=== PATIENT | female | born 1945 | race Caucasian/White ===

== ENCOUNTER 2017-02-08 02:24 | Outpatient (CLI) | payer MEDICARE, OTHER | END 2017-02-08 02:25 | disposition home or self-care (01) | LOC: EMS 02:24 | PROVIDERS: ATTEND Surgery | DX: T83.028A Displacement of other urinary catheter, initial encounter (principal) | CPT/HCPCS: A0425; A0429 ==

== ENCOUNTER 2017-02-08 02:50 | Emergency (ER) | payer MEDICARE, OTHER ==
[2017-02-08 03:38] LABS: BILIRUBIN,URINE NEGATIVE (NEGATIVE)
[2017-02-08 03:40] LABS: UA w/ MICROSCOPIC CHARGE YES
[2017-02-08 03:43] LABS: UR CULTURE IF IND INDICATED; WBC,URINE >25 /HPF (0-5)
[2017-02-08] MEDS ORDERED: levoFLOXacin 250 MG TABLET PO STA (03:47)
--- NOTE | 2017-02-08 03:47 | ED Physician Documentation ---
PD HPI FEMALE - Stated complaint Stated Complaint: SPC CAME OUT - Chief complaint Chief Complaint: General - History obtained from History obtained from: Patient, EMS - History of Present Illness Timing - onset: Today Timing - details: Abrupt onset Similar symptoms before: Work up / diagnostics, Treatment Recently seen: Not recently seen - Additional information Additional information: Patient is a 71 year old female with an suprapubic catheter. Patient states that it came out tonight but she is not sure how it happened. Patient states that she tried putting it back in, even using a wire inside the catheter but was unsuccessful so she came for evaluation. Review of Systems Constitutional: denies: Fever, Chills Eyes: denies: Loss of vision Ears: denies: Ear pain, Drainage/discharge Nose: denies: Rhinorrhea / runny nose, Congestion Throat: denies: Dental pain / toothache, Oral lesions / sores Cardiac: denies: Chest pain / pressure Respiratory: denies: Dyspnea, Cough GI: denies: Nausea, Vomiting : reports: Unable to Void Skin: denies: Rash, Lesions Musculoskeletal: denies: Neck pain, Back pain, Extremity pain Neurologic: denies: Generalized weakness, Focal weakness Immunocompromised: denies: Immunocompromised PD PAST MEDICAL HISTORY - Past Medical History Cardiovascular: None Respiratory: None Neuro: Multiple sclerosis Endocrine/Autoimmune: None GI: None BOAT RIGGER: Other : Indwelling catheter HEENT: None Psych: Depression Musculoskeletal: Other Derm: None - Past Surgical History Past Surgical History: Yes Ortho: Hip replacement /BOAT RIGGER: Hysterectomy - Present Medications Home Medications: Ambulatory Orders Medication Instructions Recorded Confirmed Venlafaxine [Effexor] 75 mg PO BID 12/21/12 01/09/14 Dimethyl Fumarate [Tecfidera] 240 mg PO BID 01/09/14 01/09/14 Multivit with Calcium,Iron,Min 1 tab.chew PO TID 01/09/14 01/09/14 [Women's Daily Multivitamin] Brick-3 Fatty Acids/Fish Oil 1 cap PO TID 01/09/14 01/09/14 [Brick 3 1,000 mg Softgel] Vit D3-Vit K/Berberine/Hops 5,000 each PO DAILY 01/09/14 01/09/14 [Ostera Tablet] Levofloxacin [Levaquin] 750 mg PO DAILY #5 tablet 06/07/16 Levofloxacin [Levaquin] 750 mg PO DAILY #5 tablet 02/08/17 - Allergies Allergies/Adverse Reactions: Allergies Allergy/AdvReac Type Severity Reaction Status Date / Time No Known Drug Allergies Allergy Verified 12/24/12 11:09 - Social History Does the pt smoke?: Yes Smoking Status: Current every day smoker Does the pt drink ETOH?: No Does the pt have substance abuse?: No - Immunizations Immunizations are current?: No Immunizations: TDAP >10years/unknown - POLST Patient has POLST: No PD ED PE NORMAL - Vitals Vital signs reviewed: Yes - General General: Alert and oriented X 3 - HEENT HEENT: Atraumatic, PERRL - Neck Neck: Supple, no meningeal sign - Respiratory Respiratory: No respiratory distress - Abdomen Abdomen: Soft, Non distended - Derm Derm: Normal color, Warm and dry - Extremities Extremities: No deformity - Neuro Neuro: Alert and oriented X 3, Normal speech - Psych Psych: Normal mood PD ED PE EXPANDED - HEENT HEENT: Dry mucous membranes - Abdomen Abdomen: Other (suprapubic catheter site, no surrounding erythema, dislodged catheter) - Female Female : Normal external, Vaginal Discharge Results - Vitals Vitals: Vital Signs - 24 hr 02/08/17 02/08/17 03:00 03:50 Temperature 36.8 C Heart Rate 101 H 98 Respiratory 17 16 Rate Blood Pressure 113/92 H 127/59 L O2 Saturation 96 96 Oxygen O2 Source Room air - Labs Labs: Laboratory Tests 02/08/17 03:25 Urine Color YELLOW Urine Clarity CLOUDY Urine pH 7.0 Ur Specific [place]anna 1.015 Urine Protein 100 H Urine Glucose (UA) NEGATIVE Urine Ketones NEGATIVE Urine Occult Blood LARGE H Urine Nitrite NEGATIVE Urine Bilirubin NEGATIVE Urine Urobilinogen 0.2 (NORMAL) Ur Leukocyte Esterase LARGE H Urine RBC 6-10 H Urine WBC >25 H Ur Squamous Epith Cells NONE SEEN Urine Bacteria Moderate H Ur Microscopic Review INDICATED Urine Culture Comments INDICATED PD MEDICAL DECISION MAKING - ED course Complexity details: reviewed old records, reviewed results, re-evaluated patient , considered differential, d/w patient ED course: Patient was seen and examined at bedside. 22 gauge jennings was placed. urine was collected and sent and was laden with bacteria. Catheter was flushed and patient was treated with levaquin. Patient required no further work up and was stable for discharge with outpatient follow up. Departure - Departure Disposition: 01 Home, Self Care Clinical Impression: Urinary tract infection Condition: Good Instructions: ED UTI Cystitis Female Follow-Up: Fady Mcintosh DO [Primary Care Provider] - As Needed Prescriptions: Levofloxacin [Levaquin] 750 mg PO DAILY #5 tablet Comments: your catheter has been replaced but there are signs of a urinary tract infection. You will take your first dose of antibiotics tonight and will need to take them for the next 5 days. You should stay well hydrated with water. You may return to the emergency department at any time if needed for new, worsening or uncontrollable symptoms. Discharge Date/Time: 02/08/17 04:15
[2017-02-08 03:51] VITALS: BP 127/59
[2017-02-08] MEDS ORDERED: levoFLOXacin 250 MG TABLET ONE (03:57)
== END 2017-02-08 04:15 | disposition home or self-care (01) ==
LOC: EDUNIT# → ED 02:50 → SUPCPDRO 02:50 → ED 04:15
DX: N39.0 Urinary tract infection, site not specified (principal); T83.89XA Other specified complication of genitourinary prosthetic devices, implants and grafts, initial encounter; G35 Multiple sclerosis; F17.200 Nicotine dependence, unspecified, uncomplicated; N89.8 Other specified noninflammatory disorders of vagina
CPT/HCPCS: 51702; 81001; 87086; 99283; A9270; 81003

== ENCOUNTER 2017-02-08 04:19 | Outpatient (CLI) | payer MEDICARE, OTHER | END 2017-02-08 04:20 | disposition home or self-care (01) | LOC: EMS 04:19 | PROVIDERS: ATTEND Surgery | DX: T83.028A Displacement of other urinary catheter, initial encounter (principal) | CPT/HCPCS: A0425; A0428 ==

== ENCOUNTER 2017-04-13 14:00 | Outpatient (CLI) | payer MEDICARE, OTHER | END 2017-04-13 14:01 | disposition critical access hospital (66) | LOC: EMS 14:00 | PROVIDERS: ATTEND Surgery | DX: R11.2 Nausea with vomiting, unspecified (principal); R82.90 Unspecified abnormal findings in urine | CPT/HCPCS: A0425; A0429 ==

== ENCOUNTER 2017-04-16 12:14 | Outpatient (CLI) | payer MEDICARE, OTHER | END 2017-04-16 12:15 | disposition short-term general hospital (02) | LOC: EMS 12:14 | PROVIDERS: ATTEND Surgery | DX: R09.89 Other specified symptoms and signs involving the circulatory and respiratory systems (principal); K56.609 Unspecified intestinal obstruction, unspecified as to partial versus complete obstruction | CPT/HCPCS: A0170; A0425; A0426 ==

== ENCOUNTER 2017-12-17 | Outpatient (CLI) | END 2017-12-17 12:32 | disposition EMS.NT ==

== ENCOUNTER 2018-03-28 13:00 | Outpatient (CLI) | payer MEDICARE, OTHER ==
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
== END 2018-03-28 13:01 | disposition home or self-care (01) ==
LOC: PC 13:00
PROVIDERS: ATTEND Nurse Practitioner
DX: Z51.5 Encounter for palliative care (principal); G35 Multiple sclerosis; L89.151 Pressure ulcer of sacral region, stage 1; R15.9 Full incontinence of feces; B37.2 Candidiasis of skin and nail; N30.20 Other chronic cystitis without hematuria; M16.12 Unilateral primary osteoarthritis, left hip; M17.0 Bilateral primary osteoarthritis of knee; S40.211A Abrasion of right shoulder, initial encounter; X58.XXXA Exposure to other specified factors, initial encounter; F32.9 Major depressive disorder, single episode, unspecified; Z72.0 Tobacco use; Z96.0 Presence of urogenital implants; Z74.01 Bed confinement status; Z96.641 Presence of right artificial hip joint; Z79.899 Other long term (current) drug therapy
CPT/HCPCS: 99345

== ENCOUNTER 2018-03-30 11:03 | Outpatient (CLI) | payer MEDICARE, OTHER | END 2018-03-30 11:04 | disposition critical access hospital (66) | LOC: EMS 11:03 | PROVIDERS: ATTEND Surgery | DX: R06.00 Dyspnea, unspecified (principal) | CPT/HCPCS: A0425; A0427 ==

== ENCOUNTER 2018-03-30 11:36 | Inpatient (IN) | payer MEDICARE, OTHER ==
--- NOTE | 2018-03-30 12:15 | ED Physician Documentation ---
PD HPI DYSPNEA - Stated complaint Stated Complaint: DIFFICULTY BREATHING - Chief complaint Chief Complaint: Resp - History obtained from History obtained from: Patient - History of Present Illness Timing - onset: Yesterday Timing - onset during: Rest Timing - duration: Days (1-2) Timing - details: Abrupt onset, Still present, Waxing and waning Inciting event(s): URI (mild cough), Immobilization/travel (MS and is bedridden chronic). No: Out of meds Worsened by: No: Exertion (does not get out of bed due to MS/paralysis.), Laying flat Associated symptoms: Cough, Wheezing. No: Fever, Chest pain / discomfort, Palpitations, Bilateral edema Similar symptoms before: Has not had sx before Recently seen: Clinic (for UTI about 2 weeks ago.) Review of Systems Constitutional: denies: Fever, Chills, Myalgias Nose: denies: Rhinorrhea / runny nose, Congestion Throat: denies: Sore throat Cardiac: denies: Chest pain / pressure Respiratory: reports: Dyspnea, Cough GI: denies: Abdominal Pain, Nausea, Vomiting, Diarrhea : reports: Other (suprapubic cath draining well, without blood.) Skin: denies: Rash, Lesions Neurologic: reports: Confused (chronic). denies: Altered mental status, Headache, Head injury PD PAST MEDICAL HISTORY - Past Medical History Cardiovascular: None, Peripheral Vascular Disease Respiratory: None Neuro: Dementia, Multiple sclerosis (with leg weakness and so bedbound. Has group home supervisor just few hours daily, then family members. ) Endocrine/Autoimmune: None GI: None, Other FITNESS MANAGER: Other : Indwelling catheter HEENT: None Psych: Depression Musculoskeletal: Osteoarthritis Derm: Other - Past Surgical History Past Surgical History: Yes Ortho: Hip replacement /FITNESS MANAGER: Hysterectomy - Present Medications Home Medications: Ambulatory Orders Medication Instructions Recorded Confirmed Hydrocodone/Acetaminophen 1 tab PO Q4H PRN 04/14/17 03/30/18 [Hydrocodon-Acetaminophen 5-325] Albuterol Sulfate [Proair Hfa 2 puffs PO QID PRN 03/28/18 03/30/18 Inhaler] Venlafaxine [Effexor] 75 mg PO DAILY 03/30/18 03/30/18 - Allergies Allergies/Adverse Reactions: Allergies Allergy/AdvReac Type Severity Reaction Status Date / Time No Known Drug Allergies Allergy Verified 03/30/18 11:44 - Social History Does the pt smoke?: Yes Smoking Status: Current every day smoker Does the pt drink ETOH?: No Does the pt have substance abuse?: No - Family History Family history: reports: Non contributory - Immunizations Immunizations are current?: No Immunizations: TDAP >10years/unknown - POLST Patient has POLST: Yes POLST Status: Full Code PD ED PE NORMAL - Vitals Vital signs reviewed: Yes - General General: Alert and oriented X 3, No acute distress, Well developed/nourished - HEENT HEENT: Atraumatic, Moist mucous membranes, Pharynx benign - Neck Neck: Supple, no meningeal sign, No adenopathy - Cardiac Cardiac: RRR, No murmur - Respiratory Respiratory: No respiratory distress. No: Clear bilaterally (wheezing diffusely holoexpiratory. ) - Abdomen Abdomen: Soft, Non tender - Female Female : Deferred, Other (suprapubic cath noted with some cloudy yellow output. ) - Rectal Rectal: Deferred - Back Back: No CVA TTP - Derm Derm: Normal color - Extremities Extremities: No tenderness to palpate, No edema, No calf tenderness / cord - Neuro Neuro: Alert and oriented X 3, leadlighter 2-12 intact, No motor deficit, Normal speech Results - Vitals Vitals: Vital Signs - 24 hr 03/30/18 03/30/18 03/30/18 11:39 12:07 14:00 Temperature 36.6 C Heart Rate 125 H 124 H 110 H Respiratory 24 20 18 Rate Blood Pressure 156/80 H 150/68 H 123/57 L O2 Saturation 98 96 96 03/30/18 03/30/18 03/30/18 15:45 16:00 17:30 Temperature Heart Rate 90 96 113 H Respiratory 18 18 18 Rate Blood Pressure 120/58 L 123/57 L O2 Saturation 96 95 Oxygen O2 Source Room air - Labs Labs: Laboratory Tests 03/30/18 03/30/18 03/30/18 12:42 12:42 12:42 WBC 28.6 H RBC 4.22 Hgb 13.6 Hct 40.9 MCV 96.9 MCH 32.1 H MCHC 33.2 RDW 13.5 Plt Count 456 H MPV 7.6 L Neut # (Auto) 26.9 H Lymph # (Auto) 0.8 L [place] # (Auto) 0.6 Eos # (Auto) 0.3 Baso # (Auto) 0.0 Absolute Nucleated RBC 0.00 Nucleated RBC % 0.0 Manual Slide Review Indicated WBC Morphology NORMAL APPEARANCE Platelet Estimate INCREASED (>450,000) Platelet Morphology NORMAL APPEARANCE RBC Morph Micro Appear NORMAL APPEARANCE D-Dimer Sodium 136 Potassium 3.9 Chloride 96 L Carbon Dioxide 27 Anion Gap 13.0 BUN 20 Creatinine 0.6 Estimated GFR (MDRD) 98 Glucose 157 H Calcium 9.4 Magnesium 1.9 Total Bilirubin 0.8 AST 27 ALT 17 Alkaline Phosphatase 69 Troponin I < 0.04 B-Natriuretic Peptide Total Protein 7.8 Albumin 3.6 Globulin 4.2 Albumin/Globulin Ratio 0.9 L Lipase 32 Urine Color Urine Clarity Urine pH Ur Specific [place] Urine Protein Urine Glucose (UA) Urine Ketones Urine Occult Blood Urine Nitrite Urine Bilirubin Urine Urobilinogen Ur Leukocyte Esterase Urine RBC Urine WBC Ur Squamous Epith Cells Urine Crystals Amorphous Sediment Urine Bacteria Ur Microscopic Review Urine Culture Comments 03/30/18 03/30/18 03/30/18 12:42 12:42 13:12 WBC RBC Hgb Hct MCV MCH MCHC RDW Plt Count MPV Neut # (Auto) Lymph # (Auto) [place] # (Auto) Eos # (Auto) Baso # (Auto) Absolute Nucleated RBC Nucleated RBC % Manual Slide Review WBC Morphology Platelet Estimate Platelet Morphology RBC Morph Micro Appear D-Dimer 464.8 H Sodium Potassium Chloride Carbon Dioxide Anion Gap BUN Creatinine Estimated GFR (MDRD) Glucose Calcium Magnesium Total Bilirubin AST ALT Alkaline Phosphatase Troponin I B-Natriuretic Peptide 83 Total Protein Albumin Globulin Albumin/Globulin Ratio Lipase Urine Color DARK YELLOW Urine Clarity CLOUDY Urine pH 7.5 Ur Specific [place] 1.020 Urine Protein 100 H Urine Glucose (UA) NEGATIVE Urine Ketones 15 H Urine Occult Blood LARGE H Urine Nitrite POSITIVE H Urine Bilirubin NEGATIVE Urine Urobilinogen 0.2 (NORMAL) Ur Leukocyte Esterase LARGE H Urine RBC 11-25 H Urine WBC >25 H Ur Squamous Epith Cells FEW Squamous Urine Crystals 3-5 Triple Phosphate Amorphous Sediment Moderate Urine Bacteria Many H Ur Microscopic Review INDICATED Urine Culture Comments INDICATED - Rads (name of study) CXR Radiology: Prelim report reviewed, EMP read contemporaneously (no acute infiltrates) chest angio Radiology: Prelim report reviewed (no PE. No acute process. ) PD MEDICAL DECISION MAKING - ED course Complexity details: reviewed results, re-evaluated patient, considered differential (has wheezing and dyspnea. Likely COPD exac. Is bedbound so need to consider PE. No signs of CHF nor KS. ), d/w patient - Sepsis Event Vital Signs: Vital Signs - 24 hr 03/30/18 03/30/18 03/30/18 11:39 12:07 14:00 Temperature 36.6 C Heart Rate 125 H 124 H 110 H Respiratory 24 20 18 Rate Blood Pressure 156/80 H 150/68 H 123/57 L O2 Saturation 98 96 96 03/30/18 03/30/18 03/30/18 15:45 16:00 17:30 Temperature Heart Rate 90 96 113 H Respiratory 18 18 18 Rate Blood Pressure 120/58 L 123/57 L O2 Saturation 96 95 Oxygen O2 Source Room air Departure - Departure Disposition: 66 [facility] DC/Xfer Clinical Impression: Acute exacerbation of COPD with asthma, Hypoxia Dyspnea Qualifiers: Dyspnea type: shortness of breath Qualified Code(s): R06.02 - Shortness of breath UTI (urinary tract infection) Qualifiers: Urinary tract infection type: catheter-associated UTI Indwelling urinary catheter type: cystostomy catheter Encounter type: initial encounter Qualified Code(s): T83.510A - Infection and inflammatory reaction due to cystostomy catheter, initial encounter Leukocytosis Qualifiers: Leukocytosis type: unspecified Qualified Code(s): D72.829 - Elevated white blood cell count, unspecified Discharge Date/Time: 03/30/18 18:30
[2018-03-30 13:07] LABS: ALBUMIN 3.6 g/dL (3.2-5.5); ALBUMIN/GLOBULIN RATIO 0.9 (1.0-2.2); BILIRUBIN,TOTAL 0.8 mg/dL (0.2-1.0); CALCIUM 9.4 mg/dL (8.5-10.3); CREATININE 0.6 mg/dL (0.4-1.0); MAGNESIUM 1.9 mg/dL (1.7-2.8); TOTAL PROTEIN 7.8 g/dL (6.7-8.2)
[2018-03-30 13:09] LABS: EOSINOPHILS # (AUTO) 0.3 10^3/uL (0.0-0.7); HGB - HEMOGLOBIN 13.6 g/dL (12.0-16.0); LYMPHOCYTES # (AUTO) 0.8 10^3/uL (1.5-3.5); LYMPHOCYTES % (AUTO) 2.7 %; MEAN CORPUSCULAR HEMOGLOBIN 32.1 pg (27.0-31.0); MEAN CORPUSCULAR HGB CONC 33.2 g/dL (32.0-36.0); MEAN CORPUSCULAR VOLUME 96.9 fL (81.0-99.0); MEAN PLATELET VOLUME 7.6 fL (7.9-10.8); MONOCYTES # (AUTO) 0.6 10^3/uL (0.0-1.0); MONOCYTES % (AUTO) 2.3 %; NEUTROPHILS # (AUTO) 26.9 10^3/uL (1.5-6.6); PLT - PLATELET COUNT 456 10^3/uL (130-450); RED BLOOD COUNT 4.22 10^6/uL (4.20-5.40); RED CELL DISTRIBUTION WIDTH 13.5 % (12.0-15.0); WHITE BLOOD COUNT 28.6 x10^3/uL (4.8-10.8)
--- NOTE | 2018-03-30 13:35 | XRAY Report ---
Reason: soa Procedure Date: 03/30/2018 Accession Number: [id number] / [id number] Procedure: XR - Chest 1 View X-Ray CPT Code: 40117 FULL RESULT: EXAM: CHEST RADIOGRAPHY EXAM DATE: 03/30/2018 12:28 PM. CLINICAL HISTORY: Soa. COMPARISON: CHEST 2 VIEW PA/LAT 01/12/2014 9:38 AM. TECHNIQUE: 1 view. FINDINGS: Lungs/Pleura: No focal opacities evident. No pleural effusion. No pneumothorax. Mediastinum: Within exam limitations, the cardiomediastinal contour is normal. Other: None. IMPRESSION: Negative for active cardiopulmonary process. RADIA
[2018-03-30 14:00] LABS: PLATELET ESTIMATE, MANUAL INCREASED (>450,000) (NORMAL); PLATELET MORPHOLOGY NORMAL APPEARANCE (NORMAL); RBC MORPHOLOGY (MULTIPLE) NORMAL APPEARANCE (NORMAL)
[2018-03-30 14:05] LABS: BILIRUBIN,URINE NEGATIVE (NEGATIVE); GLUCOSE, URINE (UA) NEGATIVE (NEGATIVE); KETONES,URINE (UA) 15 mg/dL (NEGATIVE); LEUKOCYTE ESTERASE, URINE LARGE (NEGATIVE); NITRITE,URINE POSITIVE (NEGATIVE); OCCULT BLOOD,URINE LARGE (NEGATIVE); PH,URINE 7.5 PH (5.0-7.5); PROTEIN,URINE 100 mg/dL (NEGATIVE); UROBILINOGEN,URINE 0.2 (NORMAL) E.U./dL (NORMAL)
[2018-03-30 14:07] LABS: CLARITY,URINE CLOUDY (CLEAR)
[2018-03-30] MEDS ORDERED: HYDROcod/ACETAM 5/325 MG TABLET PO STA (14:07)
[2018-03-30 14:25] LABS: AMORPHOUS SEDIMENT,UR Moderate /LPF; BACTERIA,URINE Many /HPF (None Seen); SQUAMOUS EPITHELIAL CELL,UR FEW Squamous (<= Few)
[2018-03-30 14:26] LABS: CRYSTALS,URINE 3-5 Triple Phosphate /LPF
[2018-03-30] MEDS ORDERED: IOPAMIDOL-300 100 ML VIAL ONE (14:28)
[2018-03-30] MEDS ORDERED: IOPAMIDOL-300 100 ML VIAL IVP ONE (15:23)
[2018-03-30] MEDS ORDERED: cefTRIAXone 1 GM in SODIUM CHLORIDE 0.9% MINIBAG 100 ML IV STA (15:31)
--- NOTE | 2018-03-30 15:54 | CT Report ---
Reason: dyspnea onset yesterday; bedbound; elevated d-dime Procedure Date: 03/30/2018 Accession Number: [id number] / [id number] Procedure: CT - Chest Angio (PE) CPT Code: FULL RESULT: EXAM: CT ANGIOGRAM CHEST EXAM DATE: 03/30/2018 03:32 PM. CLINICAL HISTORY: Dyspnea onset yesterday; bedbound; elevated D-dime. COMPARISON: Chest angio 04/15/2017 3:48 PM. Abdomen, pelvis with contrast 04/15/2017 3:48 PM. TECHNIQUE: Routine helical imaging was performed through the chest in the pulmonary arterial phase. IV Contrast: 80 mL Isovue-300. Reconstructions: Coronal 3-D MIP reconstructions.Sagittal and coronal. In accordance with CT protocol optimization, one or more of the following dose reduction techniques were utilized for this exam: automated exposure control, adjustment of mA and/or KV based on patient size, or use of iterative reconstructive technique. FINDINGS: Mediastinum: No thoracic aneurysm or dissection. Moderate atherosclerotic calcification of the thoracic aorta. No mediastinal or hilar lymphadenopathy. Heart size is within normal limits. No evidence for pulmonary emboli. Lungs: Biapical scarring. Right middle lobe and lingular scarring. No pleural effusion or pneumothorax. Minimal consolidation seen posteriorly at the base on the left side most likely atelectasis. Bilateral breast implants. The left breast implant is collapsed, unchanged. Upper abdomen: Distended gallbladder. There appears to be a minimal amount of ascites adjacent to the spleen, new from the abdomen and pelvis CT from 04/15/17. Bones: No acute bone findings. IMPRESSION: 1. No evidence for pulmonary emboli. 2. No acute pulmonary findings are seen. 3.Distended gallbladder. There appears to be a minimal amount of ascites adjacent to the spleen, new. RADIA
[2018-03-30] MEDS ORDERED: IPRATROPIUM/ALBUTEROL 3 ML NEB INH STA (16:00)
[2018-03-30] MEDS ORDERED: DEXAMETHASONE 10 MG/ML VIAL IVP STA (16:00)
[2018-03-30] MEDS ORDERED: ACETAMINOPHEN 325 MG TABLET PO PRN (17:45)
[2018-03-30] MEDS ORDERED: PROCHLORPERAZINE 10 MG/2 ML VIAL IVP PRN (17:45)
[2018-03-30] MEDS ORDERED: PROMETHAZINE 25 MG/1 ML VIAL IM PRN (17:45)
[2018-03-30] MEDS ORDERED: SODIUM CHLORIDE FLUSH 0.9% 10 ML SYRINGE IVP PRN (17:45)
[2018-03-30] MEDS ORDERED: ONDANSETRON 4 MG/2 ML VIAL IVP PRN (17:45)
[2018-03-30] MEDS ORDERED: HYDROcod/ACETAM 10 MG/325 MG TABLET PO PRN (17:45)
[2018-03-30] MEDS ORDERED: ZOLPIDEM 5 MG TABLET PO PRN (17:45)
--- NOTE | 2018-03-30 17:54 | HISTORY & PHYSICAL EXAMINATION ---
Chief Complaint - Chief Complaint Chief Complaint: Shortness of breath History of Present Illness - Admitted From Admitted From:: Emergency Department - History Obtained From Records Reviewed: Yes History obtained from: Patient and patients daughter Exam Limitations: None - History of Present Illness HPI Comment/Other: Patient is a 72-year-old female with a past medical history significant for multiple sclerosis diagnosed at the age of 44 with a neurogenic bladder status post suprapubic catheter 3 years ago and COPD who presented to the emergency department with a chief complaint of shortness of breath. The patient states that her shortness of breath started yesterday. She states that she just got an inhaler and because she was short of breath she used it for the first time and states that it made her symptoms worse. She states that through the night she was coughing and wheezing. She states that her shortness of breath just continued to worsen to the point where today she had to come into the hospital. The patient also states that she has chronic urinary tract infections due to her suprapubic catheter and was recently diagnosed with a UTI. She states that she has not been very compliant with her medication for treatment of her UTI. She states that she only took the antibiotics for a couple of days and then stopped. The patient otherwise denies any fevers or chills. She denies any weakness. S he denies any chest pain or palpitations. Patient denies any headaches, blurred vision, runny nose, sore throat, nasal congestion, difficulty swallowing, orthopnea, PND, increased lower extremity swe lling, abdominal pain, nausea, vomiting, diarrhea, constipation, increased urinary urgency, urinary frequency or dysuria. The patient also denies any back pain, neck stiffness, recent unintentional weight loss, changes in her appetite, hair loss, skin rash, night sweats or any focal neurologic deficits. On presentation to the emergency department the patient was afebrile, tachycardic with a heart rate of 125 hypertensive and tachypneic with respiratory rate of 24 with an O2 saturation of 88% on room air. Prior to coming to the emergency department the EMS found the patient at home with a O2 saturation in the mid 80s. The patient did have some improvement with nebulizer treatments and steroids in the emergency department however she continued to have wheezing and continued to have oxygen saturation in the low 90s. The patient underwent routine lab work which did reveal a leukocytosis of 28.6 along with a positive UA with large leukocyte esterase, positive nitrites, large blood and greater than 25 WBCs with many bacteria. The patient was admitted to the [facility] for sepsis with UTI and COPD exacerbation. History - Past Medical History Cardiovascular: reports: None Respiratory: reports: COPD Neuro: reports: Multiple sclerosis (With neurogenic bladder) Endocrine/Autoimmune: reports: None GI: reports: None, Other BASEBALL CLUB MANAGER: reports: Other : reports: Indwelling catheter HEENT: reports: None Psych: reports: Depression Musculoskeletal: reports: Osteoarthritis Derm: reports: Other MRSA Hx?: No - Past Surgical History Ortho: reports: Hip replacement /BASEBALL CLUB MANAGER: reports: Hysterectomy - Family & Social History Family History: Mother: (Father in World War II), Cancer (Mother of cervical cancer), Father: Living arrangement: At home Living Situation: With caregiver(s) Social History Notes: The patient lives in [place]. She states that she lives alone but has caregivers. She is bedbound and requires help with all her activities of daily living. She has a caregiver that helps to get her up and bathe her. She has another caregiver that provides her with food. The patient is originally from [place] and moved [place] [facility] [place] [facility] [place]. She moved to [place] and then lived in [place] and now has retired on [facility]. She is . She has 2 children both her daughters live in [place]. She was a housewife. She has been smoking 1 pack a day since the age of 15 states that she quit 2 days ago. She does not drink alcohol or use any illicit drugs. - Substance History Use: Uses substance without health or social issues: Tobacco (1 pack per day since age 15 or 16. Quit once for about 5 years, then restarted.) - POLST Patient has POLST: Yes POLST Status: Full Code Meds/Allgy - Home Medications Home Medications: Ambulatory Orders Medication Instructions Recorded Confirmed Hydrocodone/Acetaminophen 1 tab PO Q4H PRN 04/14/17 04/14/17 [Hydrocodon-Acetaminophen 5-325] Albuterol Sulfate [Proair Hfa 2 puffs PO QID PRN 03/28/18 03/28/18 Inhaler] Venlafaxine [Effexor] 75 mg PO DAILY 03/30/18 03/30/18 - Allergies Allergies/Adverse Reactions: Allergies Allergy/AdvReac Type Severity Reaction Status Date / Time No Known Drug Allergies Allergy Verified 03/30/18 11:44 Review of Systems - Other Findings Other Findings: A comprehensive review of systems was performed the pertinent positives and negatives are stated above in the HPI and the remainder of the review of systems is negative. Prior Level of Functionality: Bedbound with caregivers who help with activities of daily living. Patient does transfer into a wheelchair with the help of caregiver. Caregivers make patient food, bathe her and help her with all her daily needs. Exam - Vital Signs Reviewed Vital Signs: Yes Vital Signs: Vital Signs x48h Temp Pulse Resp BP Pulse Ox 03/30/18 16:00 96 18 03/30/18 14:00 110 H 18 123/57 L 96 03/30/18 12:07 124 H 20 150/68 H 96 03/30/18 11:39 36.6 C 125 H 24 156/80 H 98 - Physical Exam General Appearance: positive: No acute distress, Mild distress (Tachypneic, wheezing) Eyes Bilateral: positive: Normal inspection, PERRL, EOMI, No lid inflammation, Conjunctivae nml, No scleral icterus ENT: positive: ENT inspection nml, Pharynx nml, Dry mucous membranes. negative: Purulent nasal drainage, Pharyngeal erythema, Oral lesions Neck: positive: Nml inspection, Thyroid nml, No JVD, Trachea midline. negative: Thyromegaly, Lymphadenopathy (R), Lymphadenopathy (L), Stiff neck, Carotid bruit, Tracheal deviation Respiratory: positive: Chest non-tender, Wheezes (Scattered wheezing throughout her lungs expiratory). negative: Rales, Rhonchi Cardiovascular: positive: No murmur, No gallop, Tachycardia Peripheral Pulses: positive: 2+ Abdomen: positive: Non-tender, No organomegaly, Nml bowel sounds, No distention, Other (Indwelling suprapubic catheter). negative: Guarding, Rebound Back: positive: Nml inspection. negative: CVA tenderness (R), CVA tenderness (L) Skin: positive: Color nml, No rash, Warm, Dry. negative: Cyanosis, Diaphoresis, Pallor Extremities: positive: Non-tender, Full ROM, Nml appearance, Pedal edema (Left lower extremity) Neurologic/Psychiatric: positive: Oriented x3, CN's nml (2-12), Mood/affect nml, Weakness (Patient has contracture of her left lower extremity and weakness of bilateral lower extremity) Conclusion/Plan - Problem List (1) Sepsis Conclusion/Plan: Patient presents to the emergency department with tachycardia heart rate of 125, tachypneic with a respiratory rate of 24 and a leukocytosis of 28.6. Patient has recurrent urinary tract infections and was recently diagnosed with a UTI for which she did not appropriately take antibiotics. Patient's urine analysis shows a grossly positive UA for urinary tract infection. Patient has sepsis with likely source being the urine. Plan: Treat with IV ceftriaxone IV fluids Await urine cultures and blood cultures Check lactic acid (2) COPD exacerbation Conclusion/Plan: Patient presented to the emergency department with shortness of breath and wheezing. Patient underwent a chest x-ray which showed no acute changes. Patient also underwent a CT angiogram of her chest which revealed no pulmonary embolism. The patient continued to have wheezing and was borderline hypoxic despite receiving multiple doses of nebulizers and steroids in the emergency department. The patient appears to have a COPD exacerbation in the setting of sepsis from her urinary tract infection. Plan: Duo nebs [id number] times 1 day Duo nebs as needed Prednisone 40 mg daily Supplemental O2 (3) Urinary tract infection Conclusion/Plan: Patient presented with shortness of breath but was found to have sepsis which appears to be secondary to UTI. Patient has recurrent urinary tract infections. On past urine culture she is growing Klebsiella pneumonia and E. coli as well as Proteus mirabilis which have all been flynn susceptible. Plan: Treat with IV ceftriaxone Await urine and blood cultures IV fluids Qualifiers: Urinary tract infection type: catheter-associated UTI Indwelling urinary catheter type: cystostomy catheter Encounter type: initial encounter Qualified Code(s): T83.510A - Infection and inflammatory reaction due to c ystostomy catheter, initial encounter; N39.0 - Urinary tract infection, site not specified (4) Hyperglycemia Conclusion/Plan: Patient was hyperglycemic on presentation with a blood glucose of 157. Patient does not have a history of diabetes. Patient may be hypoglycemic in the setting of sepsis and infection. We will get a hemoglobin A1c as patient will be on steroids and may require sliding scale insulin if her A1c is elevated. (5) Depression Conclusion/Plan: Patient has a history of depression and uses Effexor at home. We will continue the patient's home dose of Effexor currently the patient does not appear to be depressed. Qualifiers: Depression Type: unspecified Qualified Code(s): F32.9 - Major depressive disorder, single episode, unspecified (6) Multiple sclerosis Conclusion/Plan: Patient has a history of multiple sclerosis which is left her bedbound and requiring help with all her ADLs. The patient has lower extremity weakness and a neurogenic bladder for which she has a indwelling suprapubic catheter and has had recurrent urinary tract infections. Currently the patient appears to be stable in terms of social setting. She will return back to her home once infection has resolved. - Lab Results Lab results reviewed: Yes Fish Bones: 03/30/18 12:42 03/30/18 12:42 Other Lab Results: Laboratory Results WBC 28.6 x10^3/uL (4.8-10.8) H 03/30/18 12:42 RBC 4.22 10^6/uL (4.20-5.40) 03/30/18 12:42 Hgb 13.6 g/dL (12.0-16.0) 03/30/18 12:42 Hct 40.9 % (37.0-47.0) 03/30/18 12:42 MCV 96.9 fL (81.0-99.0) 03/30/18 12:42 MCH 32.1 pg (27.0-31.0) H 03/30/18 12:42 MCHC 33.2 g/dL (32.0-36.0) 03/30/18 12:42 RDW 13.5 % (12.0-15.0) 03/30/18 12:42 Plt Count 456 10^3/uL (130-450) H 03/30/18 12:42 MPV 7.6 fL (7.9-10.8) L 03/30/18 12:42 Neut # (Auto) 26.9 10^3/uL (1.5-6.6) H 03/30/18 12:42 Lymph # (Auto) 0.8 10^3/uL (1.5-3.5) L 03/30/18 12:42 [place] # (Auto) 0.6 10^3/uL (0.0-1.0) 03/30/18 12:42 Eos # (Auto) 0.3 10^3/uL (0.0-0.7) 03/30/18 12:42 Baso # (Auto) 0.0 10^3/uL (0.0-0.1) 03/30/18 12:42 Absolute Nucleated RBC 0.00 x10^3/uL 03/30/18 12:42 Nucleated RBC % 0.0 /100WBC 03/30/18 12:42 Manual Slide Review Indicated 03/30/18 12:42 WBC Morphology NORMAL APPEARANCE (NORMAL) 03/30/18 12:42 Platelet Estimate INCREASED (>450,000) (NORMAL) 03/30/18 12:42 Platelet Morphology NORMAL APPEARANCE (NORMAL) 03/30/18 12:42 RBC Morph Micro Appear NORMAL APPEARANCE (NORMAL) 03/30/18 12:42 D-Dimer 464.8 ng/mL (200.0-255.0) H 03/30/18 12:42 Sodium 136 mmol/L (135-145) 03/30/18 12:42 Potassium 3.9 mmol/L (3.5-5.0) 03/30/18 12:42 Chloride 96 mmol/L (101-111) L 03/30/18 12:42 Carbon Dioxide 27 mmol/L (21-32) 03/30/18 12:42 Anion Gap 13.0 (6-13) 03/30/18 12:42 BUN 20 mg/dL (6-20) 03/30/18 12:42 Creatinine 0.6 mg/dL (0.4-1.0) 03/30/18 12:42 Estimated GFR (MDRD) 98 (>89) 03/30/18 12:42 Glucose 157 mg/dL (70-100) H 03/30/18 12:42 Calcium 9.4 mg/dL (8.5-10.3) 03/30/18 12:42 Magnesium 1.9 mg/dL (1.7-2.8) 03/30/18 12:42 Total Bilirubin 0.8 mg/dL (0.2-1.0) 03/30/18 12:42 AST 27 IU/L (10-42) 03/30/18 12:42 ALT 17 IU/L (10-60) 03/30/18 12:42 Alkaline Phosphatase 69 IU/L (42-121) 03/30/18 12:42 Troponin I < 0.04 ng/mL (<0.49) 03/30/18 12:42 B-Natriuretic Peptide 83 pg/mL (5-100) 03/30/18 12:42 Total Protein 7.8 g/dL (6.7-8.2) 03/30/18 12:42 Albumin 3.6 g/dL (3.2-5.5) 03/30/18 12:42 Globulin 4.2 g/dL (2.1-4.2) 03/30/18 12:42 Albumin/Globulin Ratio 0.9 (1.0-2.2) L 03/30/18 12:42 Lipase 32 U/L (22-51) 03/30/18 12:42 Urine Color DARK YELLOW 03/30/18 13:12 Urine Clarity CLOUDY (CLEAR) 03/30/18 13:12 Urine pH 7.5 PH (5.0-7.5) 03/30/18 13:12 Ur Specific [place] 1.020 (1.002-1.030) 03/30/18 13:12 Urine Protein 100 mg/dL (NEGATIVE) H 03/30/18 13:12 Urine Glucose (UA) NEGATIVE mg/dL (NEGATIVE) 03/30/18 13:12 Urine Ketones 15 mg/dL (NEGATIVE) H 03/30/18 13:12 Urine Occult Blood LARGE (NEGATIVE) H 03/30/18 13:12 Urine Nitrite POSITIVE (NEGATIVE) H 03/30/18 13:12 Urine Bilirubin NEGATIVE (NEGATIVE) 03/30/18 13:12 Urine Urobilinogen 0.2 (NORMAL) E.U./dL (NORMAL) 03/30/18 13:12 Ur Leukocyte Esterase LARGE (NEGATIVE) H 03/30/18 13:12 Urine RBC 11-25 /HPF (0-5) H 03/30/18 13:12 Urine WBC >25 /HPF (0-5) H 03/30/18 13:12 Ur Squamous Epith Cells FEW Squamous (<= Few) 03/30/18 13:12 Urine Crystals 3-5 Triple Phosphate /LPF 03/30/18 13:12 Amorphous Sediment Moderate /LPF 03/30/18 13:12 Urine Bacteria Many /HPF (None Seen) H 03/30/18 13:12 Ur Microscopic Review INDICATED 03/30/18 13:12 Urine Culture Comments INDICATED 03/30/18 13:12 - Diagnostic Imaging Results Diagnostic Imaging Results: positive: Final report reviewed Core Measures - Anticipated LOS I expect patient to be DC'd or transferred within 96 hours.: Yes - DVT/VTE - Prophylaxis VTE/DVT Prophylaxis med ordered at admit?: Yes
[2018-03-30] MEDS: predniSONE 20 MG TABLET PO SCH (19:23)
[2018-03-30] MEDS: SODIUM CHLORIDE FLUSH 0.9% 10 ML SYRINGE IVP SCH (19:23)
[2018-03-30] MEDS: SODIUM CHLORIDE 0.9% 1,000 ML IV SCH (19:24)
[2018-03-30] MEDS ORDERED: cefTRIAXone 1 GM VIAL IVP STA (20:26)
[2018-03-30] MEDS ORDERED: SODIUM CHLORIDE 0.9% 1,000 ML IV SCH (20:26)
[2018-03-30] MEDS ORDERED: cefTRIAXone 1 GM in SODIUM CHLORIDE 0.9% MINIBAG 100 ML IV SCH (20:30)
[2018-03-30] MEDS: IPRATROPIUM/ALBUTEROL 3 ML NEB INH SCH (20:50)
[2018-03-30] MEDS: NYSTATIN CREAM 15 GM TUBE TOP SCH (21:29)
[2018-03-30] MEDS: HYDROcod/ACETAM 5/325 MG TABLET PO PRN (23:42)
--- NOTE | 2018-03-30 23:48 | PROVIDER PROGRESS NOTE ---
Information Technology Coordinator Note - Information Technology Coordinator Note Information Technology Coordinator Note: March 30, 2018 23: 45 The patient was admitted with bacteremia COPD exacerbation causing shortness of breath at home. She was also to found to have sepsis with tachycardia, tachypnea, leukocytosis. Source of her sepsis appears to be recurrent urinary tract infections. She is now received a dose of Rocephin in the emergency room, another dose of Rocephin by me. Blood pressure gone from 135-106 systolic and I gave her a liter of fluid. Lactic acid was initially 3.4 after receiving treatment in the emergency room, and after my liter, gram of antibiotics, lactic acid is 4. She does not take any medications that would cause lactic acidosis such as metform in. She is asymptomatic. Alert. 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 I go in and check on her. When her first first questions is is to ask me where I am from. When I explained that I am from [facility], she asked how long I have been there. I explained that I was born and raised there. She then asked how long my family has been there and I explained that my family has been in that region since 1789. She then gives me permission to stay in the [facility] and it is okay to stay here and not go back to [place]. She says her shortness of breath is much better. Still a little there but better than on admission. She denies chest pain, palpitations. Her hip is bothering her and she would like her pain pill. Temperature is 36.3, pulse is 103, blood pressure has not been rechecked since the 106/59 and the nurses doing so now. Respirations are 18 and unlabored. She is speaking in normal sentences without any increased respiratory effort. Coarse lung sounds, prolonged and exhalation but no tachypnea. Tachycardic regular rate and rhythm. She was 125 in the emergency room and is 103 now. Abdomen is soft, nontender, normal bowel sounds Extremities are warm, without clubbing cyanosis or edema Assessment/plan lactic acidosis in a patient with diagnosed sepsis. Lactic acid is going in the wrong direction in spite of resuscitation with IV antibiotics and fluids. But the patient seems quite well from a physical exam perspective. Her physical exam and mentation beatris the lactic acid of 4. I will continue to keep a close eye on her overnight. I reviewed her urine cultures. Blood cultures were negative from April 2017 and her urine grew out a polymicrobial growth suggesting contamination. The last time she grew out anything was Proteus and E. coli June 2014. December 2013 she grew out Klebsiella and blood in urine. Back then everything was sensitive to Rocephin.
[2018-03-31] MEDS: VENLAFAXINE ER 75 MG CAPSULE PO SCH ×2 (00:37→08:58)
[2018-03-31] MEDS: IPRATROPIUM/ALBUTEROL 3 ML NEB INH PRN (00:54)
[2018-03-31] MEDS: SODIUM CHLORIDE 0.9% 1,000 ML IV SCH ×3 (06:13→16:01)
[2018-03-31 06:37] LABS: BASOPHILS % (AUTO) 0.1 %; HGB - HEMOGLOBIN 10.7 g/dL (12.0-16.0); LYMPHOCYTES # (AUTO) 0.9 10^3/uL (1.5-3.5); LYMPHOCYTES % (AUTO) 8.9 %; MEAN CORPUSCULAR HEMOGLOBIN 32.4 pg (27.0-31.0); MEAN CORPUSCULAR HGB CONC 34.1 g/dL (32.0-36.0); MEAN CORPUSCULAR VOLUME 94.8 fL (81.0-99.0); MEAN PLATELET VOLUME 7.6 fL (7.9-10.8); MONOCYTES # (AUTO) 0.2 10^3/uL (0.0-1.0); MONOCYTES % (AUTO) 2.3 %; NEUTROPHILS # (AUTO) 8.7 10^3/uL (1.5-6.6); NEUTROPHILS % (AUTO) 88.7 %; PLT - PLATELET COUNT 365 10^3/uL (130-450); RED CELL DISTRIBUTION WIDTH 13.1 % (12.0-15.0); WHITE BLOOD COUNT 9.8 x10^3/uL (4.8-10.8)
[2018-03-31] MEDS: HYDROcod/ACETAM 5/325 MG TABLET PO PRN ×2 (06:46→12:48)
[2018-03-31 06:54] LABS: ALBUMIN 2.7 g/dL (3.2-5.5); ALBUMIN/GLOBULIN RATIO 0.7 (1.0-2.2); ALKALINE PHOSPHATASE 57 IU/L (42-121); ALT ALANINE AMINOTRANSFERASE 15 IU/L (10-60); AST ASPARTATE AMINOTRANSFERASE 17 IU/L (10-42); BILIRUBIN,TOTAL 0.3 mg/dL (0.2-1.0); BUN - BLOOD UREA NITROGEN 19 mg/dL (6-20); CALCIUM 8.3 mg/dL (8.5-10.3); CARBON DIOXIDE - CO2 24 mmol/L (21-32); CHLORIDE 103 mmol/L (101-111); CREATININE 0.5 mg/dL (0.4-1.0); GFR - MDRD 121 (>89); GLUCOSE 164 mg/dL (70-100); SODIUM 136 mmol/L (135-145); TOTAL PROTEIN 6.4 g/dL (6.7-8.2)
[2018-03-31 07:05] LABS: VBG PH 7.387 (7.31-7.41)
[2018-03-31] MEDS: IPRATROPIUM/ALBUTEROL 3 ML NEB INH SCH ×3 (07:45→16:35)
[2018-03-31 07:47] LABS: HB2 TOTAL 10.9 g/dL; HEMOGLOBIN A1C 0.38 g/dL; HEMOGLOBIN A1C % 5.3 % (4.6-6.2)
[2018-03-31] MEDS: predniSONE 20 MG TABLET PO SCH (08:57)
[2018-03-31] MEDS: SACCHAROMYCES BOULARDII 250 MG CAPSULE PO SCH ×2 (08:57→16:02)
[2018-03-31] MEDS: FAMOTIDINE 20 MG TABLET PO SCH (08:58)
[2018-03-31] MEDS: ENOXAPARIN 40 MG/0.4 ML SYRINGE SUBQ SCH (08:58)
[2018-03-31] MEDS: SODIUM CHLORIDE FLUSH 0.9% 10 ML SYRINGE IVP SCH ×2 (08:58→16:02)
[2018-03-31] MEDS: POLYETHYLENE GLYCOL 3350 17 GM PACKET PO SCH (08:59)
[2018-03-31] MEDS ORDERED: VENLAFAXINE ER 37.5 MG CAPSULE PO SCH (09:00)
[2018-03-31] MEDS: CALCIUM CARBONATE CHEW 500 MG TABLET PO SCH ×2 (10:44→20:19)
[2018-03-31] MEDS: NYSTATIN CREAM 15 GM TUBE TOP SCH ×2 (10:44→20:28)
--- NOTE | 2018-03-31 13:01 | PROVIDER PROGRESS NOTE ---
Assessment/Plan - Problem List (1) Sepsis Assessment/Plan: Patient presents to the emergency department with tachycardia heart rate of 125, tachypneic with a respiratory rate of 24, leukocytosis of 28.6 and lactic acid of 3.4. Patient has recurrent urinary tract infections and was recently diagnosed with a UTI for which she did not appropriately take antibiotics. Patient's urine analysis shows a grossly positive UA for urinary tract infection. Patient has sepsis with likely source being the urine. Patients lactic acid worsened last night up to 4.0 but BP remained stable This morning lactic acid is improved to 2.2 and WBC is down to 9.8 Plan: Continue with IV ceftriaxone IV fluids Await urine cultures and blood cultures to de escalate abx Monitor closely (2) COPD exacerbation Conclusion/Plan: Patient presented to the emergency department with shortness of breath and wheezing. Patient underwent a chest x-ray which showed no acute changes. Priscilla arevalo also underwent a CT angiogram of her chest which revealed no pulmonary embolism. The patient continued to have wheezing and was borderline hypoxic despite receiving multiple doses of nebulizers and steroids in the emergency department. The patient appears to have a COPD exacerbation in the setting of sepsis from her urinary tract infection. Improved patient states breathing is much improved Less wheezing on exam Off O2 Plan: Continue Duo nebs as needed Prednisone 40 mg daily Supplemental O2 (3) Urinary tract infection Conclusion/Plan: Patient presented with shortness of breath but was found to have sepsis which appears to be secondary to UTI. Patient has recurrent urinary tract infections. On past urine culture she is growing Klebsiella pneumonia and E. coli as well as Proteus mirabilis which have all been flynn susceptible. Plan: Continue with IV ceftriaxone Await urine and blood cultures IV fluids Qualifiers: Urinary tract infection type: catheter-associated UTI Indwelling urinary catheter type: cystostomy catheter Encounter type: initial encounter Qualified Code(s): T83.510A - Infection and inflammatory reaction due to cystostomy catheter, initial encounter; N39.0 - Urinary tract infection, site not specified (4) Hyperglycemia Conclusion/Plan: Hb A1C is 5.3 but patients BG continues to be elevated this am at 164. This is likely secondary to steroids and infection. Will monitor daily no need for insulin. (5) Depression Conclusion/Plan: Patient has a history of depression and uses Effexor at home. We will continue the patient's home dose of Effexor currently the patient does not appear to be depressed. Qualifiers: Depression Type: unspecified Qualified Code(s): F32.9 - Major depressive disorder, single episode, unspecified (6) Multiple sclerosis Conclusion/Plan: Patient has a history of multiple sclerosis which is left her bedbound and requiring help with all her ADLs. The patient has lower extremity weakness and a neurogenic bladder for which she has a indwelling suprapubic catheter and has had recurrent urinary tract infections. Currently the patient appears to be stable. She will return back to her home once infection has resolved. (7) Tobacco Abuse Conclusion/Plan: Patient counselled and states she stopped 3 days ago and does not plan on smoking anymore - Current Meds Current Meds: Current Medications Generic Name Dose Route Start Last Admin Trade Name Freq PRN Reason Stop Dose Admin Hydrocodone Bitart/Acetaminophen 1 tab 03/30/18 17:45 03/31/18 12:48 [place] 5/325 PO 1 tab Q4HR PRN Administration Pain 5 to 7 Albuterol/Ipratropium 3 ml 03/30/18 17:45 03/31/18 00:54 Duoneb INH 3 ml RTQID PRN Administration Wheezing Albuterol/Ipratropium 3 ml 03/30/18 19:00 03/31/18 07:45 Duoneb INH 03/31/18 18:59 3 ml RTQID PETRA Administration Calcium Carbonate/Glycine 500 mg 03/31/18 09:00 03/31/18 10:44 Tums PO 500 mg BID PETRA Administration Enoxaparin Sodium 40 mg 03/31/18 09:00 03/31/18 08:58 Lovenox SUBQ 40 mg DAILY PETRA Administration Famotidine 20 mg 03/31/18 09:00 03/31/18 08:58 Pepcid PO 20 mg DAILY PETRA Administration Sodium Chloride 1,000 mls @ 100 mls/hr 03/30/18 18:00 03/31/18 06:13 Normal Saline 0.9% IV 100 mls/hr .Q10H PETRA Administration Nystatin 1 applic 03/30/18 21:00 03/31/18 10:44 Mycostatin Cream TOP 1 applic BID PETRA Administration Polyethylene Glycol 17 gm 03/31/18 09:00 03/31/18 08:59 Miralax PO 17 gm DAILY PETRA Administration Prednisone 40 mg 03/30/18 18:00 09/29/18 08:57 Deltasone PO 40 mg DAILYWM PETRA Administration Saccharomyces Boulardii 250 mg 03/31/18 08:00 03/31/18 08:57 Florastor PO 250 mg BIDWM PETRA Administration Sodium Chloride 10 ml 03/31/18 01:00 03/31/18 08:58 Normal Saline Flush 0.9% IVP 10 ml 0100,0900,1700 PETRA Administration Venlafaxine HCl 75 mg 03/31/18 00:18 03/31/18 08:58 Effexor Er PO 75 mg DAILY PETRA Administration - Lab Result Lab results reviewed: Yes Fish Bone Diagrams: 03/31/18 06:05 03/31/18 06:05 - Diagnostic Imaging Results Diagnostic Imaging Results: Final report reviewed - Additional Planning Condition/Complexity: Guarded My Orders: My Active Orders 03/30/18 17:45 Activity Orders [RC] Routine IO [RC] IOSHIFT Initiate Bowel Care Protocol [RC] .protocol Initiate Line Care Protocol [RC] QSHIFT Initiate Personal Care Protoco [RC] .protocol Oxygen Therapy [RC] Routine Vital Signs [RC] 0800,1600,0000 Acetaminophen [Tylenol] 650 mg PO Q4HR PRN HYDROcod/ACETAM 5/325 [[place] 5/325] 1 tab PO Q4HR PRN HYDROcodone/ACET 10/325 [[place] 10 mg/325 mg] 1 tab PO Q4HR PRN Ipratropium/Albuterol [Duoneb] 3 ml INH RTQID PRN Ondansetron Inj [Zofran Inj] 4 mg IVP Q6HR PRN Prochlorperazine Inj [Compazine Inj] 10 mg IVP Q6HR PRN Promethazine Inj [Phenergan Inj] 25 mg IM Q6HR PRN Sodium Chloride Flush 0.9% [Normal Saline Flush 0.9%] 10 ml IVP PRN PRN Zolpidem [Ambien] 5 mg PO QPM PRN Code Status [OTHERS] Routine Condition of Patient [OTHERS] Routine DVT Prophylaxis [OTHERS] Routine 03/30/18 18:00 Sodium Chloride 0.9% [Normal Saline 0.9%] 1,000 ml IV 100 mls/hr predniSONE [Deltasone] 40 mg PO DAILYWM 03/30/18 19:00 Ipratropium/Albuterol [Duoneb] 3 ml INH RTQID 03/30/18 19:10 CULTURE, BLOOD #1 [RM] Stat 03/30/18 20:52 RT [Nebulizer/MDI Tx.] [RC] QID 03/30/18 21:00 Nystatin Cream [Mycostatin Cream] 1 applic TOP BID 03/31/18 01:00 Sodium Chloride Flush 0.9% [Normal Saline Flush 0.9%] 10 ml IVP 0100,0900,1700 03/31/18 08:00 Saccharomyces Boulardii [Florastor] 250 mg PO BIDWM 03/31/18 09:00 Calcium Carbonate [Tums] 500 mg PO BID Enoxaparin [Lovenox] 40 mg SUBQ DAILY Famotidine [Pepcid] 20 mg PO DAILY Polyethylene Glycol 3350 [Miralax] 17 gm PO DAILY 03/31/18 16:00 cefTRIAXone [Rocephin] 2 gm Sodium Chloride 0.9% Minibag [Normal Saline 0.9% Minibag] 100 ml IV Q24H 03/31/18 Breakfast Regular Diet [DIET] 04/01/18 05:00 CBC - COMP BLD CT W/AUTO DIFF [HEME] DAILYLAB CMP, RFLX TO IONIZED CA IF [CHEM] DAILYLAB 04/02/18 05:00 CBC - COMP BLD CT W/AUTO DIFF [HEME] DAILYLAB CMP, RFLX TO IONIZED CA IF [CHEM] DAILYLAB 04/03/18 05:00 CBC - COMP BLD CT W/AUTO DIFF [HEME] DAILYLAB CMP, RFLX TO IONIZED CA IF [CHEM] DAILYLAB 04/04/18 05:00 CMP, RFLX TO IONIZED CA IF [CHEM] DAILYLAB Plan Discussed with:: Patient Time Spent: 31-60 minutes Subjective - Subjective Patient Reports: Feeling Better, Resting Comfortably, No Complaints, Shortness of Breath (Improved), Other (Denies any nausea, vomiting or abdominal pain.) Nursing Reports: No Complaints Objective Vital Signs: Vital Signs - 24 hr 03/30/18 03/30/18 03/30/18 14:00 15:45 16:00 Temperature Heart Rate 110 H 90 96 Heart Rate [ Brachial] Respiratory 18 18 18 Rate Blood Pressure 123/57 L 120/58 L Blood Pressure [Right Brachial artery] O2 Saturation 96 96 03/30/18 03/30/18 03/30/18 17:30 18:28 19:04 Temperature 36.7 C 36.3 C L Heart Rate 113 H 110 H Heart Rate [ 101 H Brachial] Respiratory 18 18 18 Rate Blood Pressure 123/57 L 135/55 H Blood Pressure 106/59 L [Right Brachial artery] O2 Saturation 95 96 92 03/30/18 03/30/18 03/31/18 20:55 23:55 00:48 Temperature 36.4 C L Heart Rate 103 H 105 H Heart Rate [ 103 H Brachial] Respiratory 18 18 18 Rate Blood Pressure Blood Pressure 117/80 [Right Brachial artery] O2 Saturation 97 03/31/18 03/31/18 03/31/18 06:35 07:45 08:36 Temperature 36.6 C 37.2 C Heart Rate 110 H Heart Rate [ 109 H 113 H Brachial] Respiratory 18 16 20 Rate Blood Pressure Blood Pressure 128/56 L 123/55 L [Right Brachial artery] O2 Saturation 94 94 Oxygen O2 Source Room air I&O (Last 24 Hrs): Intake and Output Totals x24h 03/29/18 03/30/18 03/31/18 23:59 23:59 23:59 Intake Total 1450 1350 Output Total 300 400 Balance 1150 950 General: Alert, Oriented x3, Cooperative, Other (Very strange affect, she talks to a stuffed animal kitten, she does not seem to be socially appropriate.) HEENT: Atraumatic, PERRLA, EOMI, Other (Dry mucus membranes) Neck: Supple, No JVD, No thyromegaly, No LAD Lymphatic: no adenopathy Neuro: Alert, Focal Deficits (LE weakness with contracture of the left LE), CN 2-12 Grossly Intact, Oriented Times 3 Cardiovascular: Normal S1, Normal S2, No murmurs, Other (Tachycardic) Respiratory: Chest non-tender, No respiratory distress, Wheezes (Scattered) Abdomen: Normal bowel sounds, Soft, No tenderness, No hepatospenomegaly, No masses Extremities: No clubbing, No cyanosis, No edema, Normal pulses, No tenderness/swelling Skin: No rashes, No breakdown - Results Results: Laboratory Results WBC 9.8 x10^3/uL (4.8-10.8) 03/31/18 06:05 RBC 3.30 10^6/uL (4.20-5.40) L 03/31/18 06:05 Hgb 10.7 g/dL (12.0-16.0) L 03/31/18 06:05 Hct 31.3 % (37.0-47.0) L 03/31/18 06:05 MCV 94.8 fL (81.0-99.0) 03/31/18 06:05 MCH 32.4 pg (27.0-31.0) H 03/31/18 06:05 MCHC 34.1 g/dL (32.0-36.0) 03/31/18 06:05 RDW 13.1 % (12.0-15.0) 03/31/18 06:05 Plt Count 365 10^3/uL (130-450) 03/31/18 06:05 MPV 7.6 fL (7.9-10.8) L 03/31/18 06:05 Neut # (Auto) 8.7 10^3/uL (1.5-6.6) H 03/31/18 06:05 Lymph # (Auto) 0.9 10^3/uL (1.5-3.5) L 03/31/18 06:05 [place] # (Auto) 0.2 10^3/uL (0.0-1.0) 03/31/18 06:05 Eos # (Auto) 0.0 10^3/uL (0.0-0.7) 03/31/18 06:05 Baso # (Auto) 0.0 10^3/uL (0.0-0.1) 03/31/18 06:05 Absolute Nucleated RBC 0.00 x10^3/uL 03/31/18 06:05 Nucleated RBC % 0.0 /100WBC 03/31/18 06:05 Manual Slide Review Indicated 03/30/18 12:42 WBC Morphology NORMAL APPEARANCE (NORMAL) 03/30/18 12:42 Platelet Estimate INCREASED (>450,000) (NORMAL) 03/30/18 12:42 Platelet Morphology NORMAL APPEARANCE (NORMAL) 03/30/18 12:42 RBC Morph Micro Appear NORMAL APPEARANCE (NORMAL) 03/30/18 12:42 D-Dimer 464.8 ng/mL (200.0-255.0) H 03/30/18 12:42 VBG pH 7.387 (7.31-7.41) 03/31/18 06:05 Ionized Calcium 1.13 mmol/L (1.15-1.33) L 03/31/18 06:05 Sodium 136 mmol/L (135-145) 03/31/18 06:05 Potassium 3.7 mmol/L (3.5-5.0) 03/31/18 06:05 Chloride 103 mmol/L (101-111) 03/31/18 06:05 Carbon Dioxide 24 mmol/L (21-32) 03/31/18 06:05 Anion Gap 9.0 (6-13) 03/31/18 06:05 BUN 19 mg/dL (6-20) 03/31/18 06:05 Creatinine 0.5 mg/dL (0.4-1.0) 03/31/18 06:05 Estimated GFR (MDRD) 121 (>89) 03/31/18 06:05 Glucose 164 mg/dL (70-100) H 03/31/18 06:05 Glycated Hemoglobin 5.3 % (4.6-6.2) 03/31/18 06:05 Estim Average Glucose 105 (70-100) H 03/31/18 06:05 Lactic Acid 2.2 mmol/L (0.5-2.2) 03/31/18 08:01 Calcium 8.3 mg/dL (8.5-10.3) L 03/31/18 06:05 Ionized Calcium YES 03/31/18 06:05 Magnesium 1.9 mg/dL (1.7-2.8) 03/30/18 12:42 Total Bilirubin 0.3 mg/dL (0.2-1.0) 03/31/18 06:05 AST 17 IU/L (10-42) 03/31/18 06:05 ALT 15 IU/L (10-60) 03/31/18 06:05 Alkaline Phosphatase 57 IU/L (42-121) 03/31/18 06:05 Troponin I < 0.04 ng/mL (<0.49) 03/30/18 12:42 B-Natriuretic Peptide 83 pg/mL (5-100) 03/30/18 12:42 Total Protein 6.4 g/dL (6.7-8.2) L 03/31/18 06:05 Albumin 2.7 g/dL (3.2-5.5) L 03/31/18 06:05 Globulin 3.7 g/dL (2.1-4.2) 03/31/18 06:05 Albumin/Globulin Ratio 0.7 (1.0-2.2) L 03/31/18 06:05 Lipase 32 U/L (22-51) 03/30/18 12:42 Urine Color DARK YELLOW 03/30/18 13:12 Urine Clarity CLOUDY (CLEAR) 03/30/18 13:12 Urine pH 7.5 PH (5.0-7.5) 03/30/18 13:12 Ur Specific [place] 1.020 (1.002-1.030) 03/30/18 13:12 Urine Protein 100 mg/dL (NEGATIVE) H 03/30/18 13:12 Urine Glucose (UA) NEGATIVE mg/dL (NEGATIVE) 03/30/18 13:12 Urine Ketones 15 mg/dL (NEGATIVE) H 03/30/18 13:12 Urine Occult Blood LARGE (NEGATIVE) H 03/30/18 13:12 Urine Nitrite POSITIVE (NEGATIVE) H 03/30/18 13:12 Urine Bilirubin NEGATIVE (NEGATIVE) 03/30/18 13:12 Urine Urobilinogen 0.2 (NORMAL) E.U./dL (NORMAL) 03/30/18 13:12 Ur Leukocyte Esterase LARGE (NEGATIVE) H 03/30/18 13:12 Urine RBC 11-25 /HPF (0-5) H 03/30/18 13:12 Urine WBC >25 /HPF (0-5) H 03/30/18 13:12 Ur Squamous Epith Cells FEW Squamous (<= Few) 03/30/18 13:12 Urine Crystals 3-5 Triple Phosphate /LPF 03/30/18 13:12 Amorphous Sediment Moderate /LPF 03/30/18 13:12 Urine Bacteria Many /HPF (None Seen) H 03/30/18 13:12 Ur Microscopic Review INDICATED 03/30/18 13:12 Urine Culture Comments INDICATED 03/30/18 13:12 Influenza A (Rapid) Negative (Negative) 03/30/18 19:01 Influenza B (Rapid) Negative (Negative) 03/30/18 19:01 - Procedures Procedures: Procedures PERCUTANEOUS CYSTOSTOMY (12/24/12) ABX Reporting Has patient been on IV antibiotics over the past 48 hours?: No Current Medications - Current Medications Current Medications: Active Medications Acetaminophen (Tylenol) 650 mg PO Q4HR PRN PRN Reason: Pain 1 to 4 Hydrocodone Bitart/Acetaminophen ([place] 5/325) 1 tab PO Q4HR PRN PRN Reason: Pain 5 to 7 Last Admin: 03/31/18 12:48 Dose: 1 tab Hydrocodone Bitart/Acetaminophen ([place] 10 Mg/325 Mg) 1 tab PO Q4HR PRN PRN Reason: Pain 8 to 10 Albuterol/Ipratropium (Duoneb) 3 ml INH RTQID PRN PRN Reason: Wheezing Last Admin: 03/31/18 00:54 Dose: 3 ml Albuterol/Ipratropium (Duoneb) 3 ml INH RTQID PETRA Stop: 03/31/18 18:59 Last Admin: 03/31/18 12:45 Dose: 3 ml Calcium Carbonate/Glycine (Tums) 500 mg PO BID [facility] Last Admin: 03/31/18 10:44 Dose: 500 mg Enoxaparin Sodium (Lovenox) 40 mg SUBQ DAILY [facility] Last Admin: 03/31/18 08:58 Dose: 40 mg Famotidine (Pepcid) 20 mg PO DAILY [facility] Last Admin: 03/31/18 08:58 Dose: 20 mg Ceftriaxone Sodium 2 gm/ (Sodium Chloride) 100 mls @ 200 mls/hr IV Q24H [facility] Sodium Chloride (Normal Saline 0.9%) 1,000 mls @ 100 mls/hr IV .Q10H [facility] Last Admin: 03/31/18 06:13 Dose: 100 mls/hr Nystatin (Mycostatin Cream) 1 applic TOP BID [facility] Last Admin: 03/31/18 10:44 Dose: 1 applic Ondansetron HCl (Zofran Inj) 4 mg IVP Q6HR PRN PRN Reason: Nausea / Vomiting Polyethylene Glycol (Miralax) 17 gm PO DAILY [facility] Last Admin: 03/31/18 08:59 Dose: 17 gm Prednisone (Deltasone) 40 mg PO DAILYWM [facility] Last Admin: 03/31/18 08:57 Dose: 40 mg Prochlorperazine Edisylate (Compazine Inj) 10 mg IVP Q6HR PRN PRN Reason: Nausea / Vomiting Promethazine HCl (Phenergan Inj) 25 mg IM Q6HR PRN PRN Reason: Nausea / Vomiting Saccharomyces Boulardii (Florastor) 250 mg PO BIDWM [facility] Last Admin: 03/31/18 08:57 Dose: 250 mg Sodium Chloride (Normal Saline Flush 0.9%) 10 ml IVP PRN PRN PRN Reason: NEEDED PER PROVIDER ORDERS Sodium Chloride (Normal Saline Flush 0.9%) 10 ml IVP 0100,0900,1700 [facility] Last Admin: 03/31/18 08:58 Dose: 10 ml Venlafaxine HCl (Effexor Er) 75 mg PO DAILY [facility] Last Admin: 03/31/18 08:58 Dose: 75 mg Zolpidem Tartrate (Ambien) 5 mg PO QPM PRN PRN Reason: Insomnia Hydrocodone/Acetaminophen [Hydrocodon-Acetaminophen 5-325] 1 tab PO Q4H PRN 04/14/17 Albuterol Sulfate [Proair Hfa Inhaler] 2 puffs PO QID PRN 03/28/18 Venlafaxine [Effexor] 75 mg PO DAILY 03/30/18
[2018-03-31] MEDS: cefTRIAXone 2 GM in SODIUM CHLORIDE 0.9% MINIBAG 100 ML IV SCH (16:01)
[2018-04-01] MEDS: SODIUM CHLORIDE FLUSH 0.9% 10 ML SYRINGE IVP SCH ×3 (01:08→16:04)
[2018-04-01] MEDS: SODIUM CHLORIDE 0.9% 1,000 ML IV SCH ×3 (01:36→22:54)
[2018-04-01 06:41] LABS: BASOPHILS % (AUTO) 0.1 %; EOSINOPHILS % (AUTO) 0.1 %; HGB - HEMOGLOBIN 10.4 g/dL (12.0-16.0); LYMPHOCYTES # (AUTO) 1.9 10^3/uL (1.5-3.5); LYMPHOCYTES % (AUTO) 16.8 %; MEAN CORPUSCULAR HEMOGLOBIN 31.9 pg (27.0-31.0); MEAN CORPUSCULAR HGB CONC 32.9 g/dL (32.0-36.0); MEAN CORPUSCULAR VOLUME 96.9 fL (81.0-99.0); MEAN PLATELET VOLUME 7.6 fL (7.9-10.8); MONOCYTES # (AUTO) 0.5 10^3/uL (0.0-1.0); MONOCYTES % (AUTO) 4.3 %; NEUTROPHILS % (AUTO) 78.7 %; PLT - PLATELET COUNT 376 10^3/uL (130-450); RED BLOOD COUNT 3.25 10^6/uL (4.20-5.40); RED CELL DISTRIBUTION WIDTH 13.6 % (12.0-15.0); WHITE BLOOD COUNT 11.4 x10^3/uL (4.8-10.8)
[2018-04-01 06:56] LABS: ALBUMIN 2.7 g/dL (3.2-5.5); ALBUMIN/GLOBULIN RATIO 0.8 (1.0-2.2); ALKALINE PHOSPHATASE 49 IU/L (42-121); ALT ALANINE AMINOTRANSFERASE 18 IU/L (10-60); AST ASPARTATE AMINOTRANSFERASE 24 IU/L (10-42); BILIRUBIN,TOTAL 0.3 mg/dL (0.2-1.0); BUN - BLOOD UREA NITROGEN 20 mg/dL (6-20); CALCIUM 8.3 mg/dL (8.5-10.3); CARBON DIOXIDE - CO2 25 mmol/L (21-32); CHLORIDE 106 mmol/L (101-111); CREATININE 0.5 mg/dL (0.4-1.0); GFR - MDRD 121 (>89); GLUCOSE 133 mg/dL (70-100); SODIUM 139 mmol/L (135-145); TOTAL PROTEIN 6.1 g/dL (6.7-8.2)
[2018-04-01 07:03] LABS: VBG PH 7.335 (7.31-7.41)
[2018-04-01] MEDS: IPRATROPIUM/ALBUTEROL 3 ML NEB INH PRN ×2 (08:13→20:32)
[2018-04-01] MEDS: NYSTATIN CREAM 15 GM TUBE TOP SCH ×2 (08:26→21:28)
[2018-04-01] MEDS: ENOXAPARIN 40 MG/0.4 ML SYRINGE SUBQ SCH (08:26)
[2018-04-01] MEDS: POLYETHYLENE GLYCOL 3350 17 GM PACKET PO SCH (08:26)
[2018-04-01] MEDS: HYDROcod/ACETAM 5/325 MG TABLET PO PRN (08:27)
[2018-04-01] MEDS: VENLAFAXINE ER 75 MG CAPSULE PO SCH (08:27)
[2018-04-01] MEDS: SACCHAROMYCES BOULARDII 250 MG CAPSULE PO SCH ×2 (08:27→16:10)
[2018-04-01] MEDS: predniSONE 20 MG TABLET PO SCH (08:27)
[2018-04-01] MEDS: FAMOTIDINE 20 MG TABLET PO SCH (08:27)
[2018-04-01] MEDS: CALCIUM CARBONATE CHEW 500 MG TABLET PO SCH ×2 (09:18→21:28)
--- NOTE | 2018-04-01 13:43 | PROVIDER PROGRESS NOTE ---
Assessment/Plan - Problem List (1) Urinary tract infection Qualifiers: Urinary tract infection type: catheter-associated UTI Indwelling urinary catheter type: cystostomy catheter Encounter type: initial encounter Qualified Code(s): T83.510A - Infection and inflammatory reaction due to cystostomy catheter, initial encounter; N39.0 - Urinary tract infection, site not specified Assessment/Plan: Urine culture still pending. Will continue empiric antibiotics, which have improved the septic condition. Adjust antibiotics per culture results, when the bacterium is identified. (2) Neurogenic bladder Assessment/Plan: Pt has indwelling suprapubic catheter, but she is also incontinent of urine, per RN. She would benefit from outpt Urol management. (3) Multiple sclerosis Assessment/Plan: Long Hx of this. She has a home caregiver and DME set up at home. (4) COPD (chronic obstructive pulmonary disease) Assessment/Plan: Pt reports mild SOB, but has no wheezing on exam. Continue Nicoderm patch while here an d she staed she plans on stopping smoking now. (5) Sepsis Assessment/Plan: Resolved - Current Meds Current Meds: Current Medications Generic Name Dose Route Start Last Admin Trade Name Freq PRN Reason Stop Dose Admin Hydrocodone Bitart/Acetaminophen 1 tab 03/30/18 17:45 04/01/18 08:27 [place] 5/325 PO 1 tab Q4HR PRN Administration Pain 5 to 7 Albuterol/Ipratropium 3 ml 03/30/18 17:45 04/01/18 08:13 Duoneb INH 3 ml RTQID PRN Administration Wheezing Calcium Carbonate/Glycine 500 mg 03/31/18 09:00 04/01/18 09:18 Tums PO 500 mg BID PETRA Administration Enoxaparin Sodium 40 mg 03/31/18 09:00 04/01/18 08:26 Lovenox SUBQ 40 mg DAILY PETRA Administration Famotidine 20 mg 03/31/18 09:00 04/01/18 08:27 Pepcid PO 20 mg DAILY PETRA Administration Ceftriaxone Sodium 2 gm/ 100 mls @ 200 mls/hr 03/31/18 16:00 03/31/18 16:31 Sodium Chloride IV Infused Q24H PETRA Infusion Sodium Chloride 1,000 mls @ 100 mls/hr 03/30/18 18:00 04/01/18 11:32 Normal Saline 0.9% IV 100 mls/hr .Q10H PETRA Administration Nystatin 1 applic 03/30/18 21:00 04/01/18 08:26 Mycostatin Cream TOP 1 applic BID PETRA Administration Polyethylene Glycol 17 gm 03/31/18 09:00 04/01/18 08:26 Miralax PO 17 gm DAILY PETRA Administration Prednisone 40 mg 03/30/18 18:00 04/01/18 08:27 Deltasone PO 40 mg DAILYWM PETRA Administration Saccharomyces Boulardii 250 mg 03/31/18 08:00 04/01/18 08:27 Florastor PO 250 mg BIDWM PETRA Administration Sodium Chloride 10 ml 03/31/18 01:00 04/01/18 08:27 Normal Saline Flush 0.9% IVP 10 ml 0100,0900,1700 PETRA Administration Venlafaxine HCl 75 mg 03/31/18 00:18 04/01/18 08:27 Effexor Er PO 75 mg DAILY PETRA Administration - Lab Result Fish Bone Diagrams: 04/01/18 06:10 04/01/18 06:10 Subjective - Subjective Patient Reports: Feeling Better, Shortness of Breath Objective Vital Signs: Vital Signs - 24 hr 03/31/18 03/31/18 03/31/18 16:00 16:35 20:20 Temperature 36.4 C L Heart Rate 113 H 101 H Heart Rate [ 101 H Brachial] Respiratory 19 15 19 Rate Blood Pressure 129/61 [Right Brachial artery] O2 Saturation 96 03/31/18 04/01/18 04/01/18 23:45 07:51 08:16 Temperature 36.4 C L 36.9 C Heart Rate 102 H Heart Rate [ 83 98 Brachial] Respiratory 16 20 16 Rate Blood Pressure 120/54 L 132/71 H [Right Brachial artery] O2 Saturation 95 95 Oxygen O2 Source Room air I&O (Last 24 Hrs): Intake and Output Totals x24h 03/30/18 03/31/18 04/01/18 23:59 23:59 23:59 Intake Total 1450 3020 2891.666 Output Total 300 775 350 Balance 1150 2245 2541.666 General: Alert, Oriented x3 HEENT: Mucous membr. moist/pink Neck: Supple, No JVD Neuro: Non Focal Cardiovascular: Regular rate, No murmurs Respiratory: No respiratory distress, Breath sounds nml Abdomen: Soft Extremities: No edema - Results Results: Laboratory Results WBC 11.4 x10^3/uL (4.8-10.8) H 04/01/18 06:10 RBC 3.25 10^6/uL (4.20-5.40) L 04/01/18 06:10 Hgb 10.4 g/dL (12.0-16.0) L 04/01/18 06:10 Hct 31.5 % (37.0-47.0) L 04/01/18 06:10 MCV 96.9 fL (81.0-99.0) 04/01/18 06:10 MCH 31.9 pg (27.0-31.0) H 04/01/18 06:10 MCHC 32.9 g/dL (32.0-36.0) 04/01/18 06:10 RDW 13.6 % (12.0-15.0) 04/01/18 06:10 Plt Count 376 10^3/uL (130-450) 04/01/18 06:10 MPV 7.6 fL (7.9-10.8) L 04/01/18 06:10 Neut # (Auto) 9.0 10^3/uL (1.5-6.6) H 04/01/18 06:10 Lymph # (Auto) 1.9 10^3/uL (1.5-3.5) 04/01/18 06:10 [place] # (Auto) 0.5 10^3/uL (0.0-1.0) 04/01/18 06:10 Eos # (Auto) 0.0 10^3/uL (0.0-0.7) 04/01/18 06:10 Baso # (Auto) 0.0 10^3/uL (0.0-0.1) 04/01/18 06:10 Absolute Nucleated RBC 0.01 x10^3/uL 04/01/18 06:10 Nucleated RBC % 0.1 /100WBC 04/01/18 06:10 Manual Slide Review Indicated 03/30/18 12:42 WBC Morphology NORMAL APPEARANCE (NORMAL) 03/30/18 12:42 Platelet Estimate INCREASED (>450,000) (NORMAL) 03/30/18 12:42 Platelet Morphology NORMAL APPEARANCE (NORMAL) 03/30/18 12:42 RBC Morph Micro Appear NORMAL APPEARANCE (NORMAL) 03/30/18 12:42 D-Dimer 464.8 ng/mL (200.0-255.0) H 03/30/18 12:42 VBG pH 7.335 (7.31-7.41) 04/01/18 06:10 Ionized Calcium 1.16 mmol/L (1.15-1.33) 04/01/18 06:10 Sodium 139 mmol/L (135-145) 04/01/18 06:10 Potassium 4.1 mmol/L (3.5-5.0) 04/01/18 06:10 Chloride 106 mmol/L (101-111) 04/01/18 06:10 Carbon Dioxide 25 mmol/L (21-32) 04/01/18 06:10 Anion Gap 8.0 (6-13) 04/01/18 06:10 BUN 20 mg/dL (6-20) 04/01/18 06:10 Creatinine 0.5 mg/dL (0.4-1.0) 04/01/18 06:10 Estimated GFR (MDRD) 121 (>89) 04/01/18 06:10 Glucose 133 mg/dL (70-100) H 04/01/18 06:10 Glycated Hemoglobin 5.3 % (4.6-6.2) 03/31/18 06:05 Estim Average Glucose 105 (70-100) H 03/31/18 06:05 Lactic Acid 2.2 mmol/L (0.5-2.2) 03/31/18 08:01 Calcium 8.3 mg/dL (8.5-10.3) L 04/01/18 06:10 Ionized Calcium YES 04/01/18 06:10 Magnesium 1.9 mg/dL (1.7-2.8) 03/30/18 12:42 Total Bilirubin 0.3 mg/dL (0.2-1.0) 04/01/18 06:10 AST 24 IU/L (10-42) 04/01/18 06:10 ALT 18 IU/L (10-60) 04/01/18 06:10 Alkaline Phosphatase 49 IU/L (42-121) 04/01/18 06:10 Troponin I < 0.04 ng/mL (<0.49) 03/30/18 12:42 B-Natriuretic Peptide 83 pg/mL (5-100) 03/30/18 12:42 Total Protein 6.1 g/dL (6.7-8.2) L 04/01/18 06:10 Albumin 2.7 g/dL (3.2-5.5) L 04/01/18 06:10 Globulin 3.4 g/dL (2.1-4.2) 04/01/18 06:10 Albumin/Globulin Ratio 0.8 (1.0-2.2) L 04/01/18 06:10 Lipase 32 U/L (22-51) 03/30/18 12:42 Urine Color DARK YELLOW 03/30/18 13:12 Urine Clarity CLOUDY (CLEAR) 03/30/18 13:12 Urine pH 7.5 PH (5.0-7.5) 03/30/18 13:12 Ur Specific [place] 1.020 (1.002-1.030) 03/30/18 13:12 Urine Protein 100 mg/dL (NEGATIVE) H 03/30/18 13:12 Urine Glucose (UA) NEGATIVE mg/dL (NEGATIVE) 03/30/18 13:12 Urine Ketones 15 mg/dL (NEGATIVE) H 03/30/18 13:12 Urine Occult Blood LARGE (NEGATIVE) H 03/30/18 13:12 Urine Nitrite POSITIVE (NEGATIVE) H 03/30/18 13:12 Urine Bilirubin NEGATIVE (NEGATIVE) 03/30/18 13:12 Urine Urobilinogen 0.2 (NORMAL) E.U./dL (NORMAL) 03/30/18 13:12 Ur Leukocyte Esterase LARGE (NEGATIVE) H 03/30/18 13:12 Urine RBC 11-25 /HPF (0-5) H 03/30/18 13:12 Urine WBC >25 /HPF (0-5) H 03/30/18 13:12 Ur Squamous Epith Cells FEW Squamous (<= Few) 03/30/18 13:12 Urine Crystals 3-5 Triple Phosphate /LPF 03/30/18 13:12 Amorphous Sediment Moderate /LPF 03/30/18 13:12 Urine Bacteria Many /HPF (None Seen) H 03/30/18 13:12 Ur Microscopic Review INDICATED 03/30/18 13:12 Urine Culture Comments INDICATED 03/30/18 13:12 Influenza A (Rapid) Negative (Negative) 03/30/18 19:01 Influenza B (Rapid) Negative (Negative) 03/30/18 19:01 - Procedures Procedures: Procedures PERCUTANEOUS CYSTOSTOMY (12/24/12)
[2018-04-01] MEDS: MIN OIL/DIMETHICON/COCONUT OIL 92 GM TUBE TOP PRN (14:02)
[2018-04-01] MEDS: ZINC OXIDE 20% OINT 28.35 GM TUBE TOP PRN (14:03)
[2018-04-01] MEDS: cefTRIAXone 2 GM in SODIUM CHLORIDE 0.9% MINIBAG 100 ML IV SCH (16:10)
[2018-04-02] MEDS: HYDROcod/ACETAM 5/325 MG TABLET PO PRN ×2 (00:27→13:15)
[2018-04-02] MEDS: ZINC OXIDE 20% OINT 28.35 GM TUBE TOP PRN (00:28)
[2018-04-02] MEDS: MIN OIL/DIMETHICON/COCONUT OIL 92 GM TUBE TOP PRN (00:28)
[2018-04-02] MEDS: SODIUM CHLORIDE FLUSH 0.9% 10 ML SYRINGE IVP SCH ×3 (01:06→17:25)
[2018-04-02] MEDS: IPRATROPIUM/ALBUTEROL 3 ML NEB INH PRN ×3 (03:57→08:50)
[2018-04-02] MEDS ORDERED: diltiaZEM INJ 5 MG/ML VIAL IVP ONE ×2 (04:23→05:15)
[2018-04-02 06:03] LABS: BASOPHILS % (AUTO) 0.1 %; EOSINOPHILS % (AUTO) 0.4 %; HGB - HEMOGLOBIN 10.2 g/dL (12.0-16.0); LYMPHOCYTES # (AUTO) 2.1 10^3/uL (1.5-3.5); LYMPHOCYTES % (AUTO) 17.3 %; MEAN CORPUSCULAR HEMOGLOBIN 32.3 pg (27.0-31.0); MEAN CORPUSCULAR HGB CONC 33.5 g/dL (32.0-36.0); MEAN CORPUSCULAR VOLUME 96.4 fL (81.0-99.0); MEAN PLATELET VOLUME 7.3 fL (7.9-10.8); MONOCYTES # (AUTO) 0.8 10^3/uL (0.0-1.0); MONOCYTES % (AUTO) 6.1 %; NEUTROPHILS # (AUTO) 9.4 10^3/uL (1.5-6.6); NEUTROPHILS % (AUTO) 76.1 %; PLT - PLATELET COUNT 372 10^3/uL (130-450); RED BLOOD COUNT 3.17 10^6/uL (4.20-5.40); RED CELL DISTRIBUTION WIDTH 13.7 % (12.0-15.0); WHITE BLOOD COUNT 12.4 x10^3/uL (4.8-10.8)
[2018-04-02 06:16] LABS: ALBUMIN 2.6 g/dL (3.2-5.5); ALBUMIN/GLOBULIN RATIO 0.8 (1.0-2.2); ALKALINE PHOSPHATASE 51 IU/L (42-121); ALT ALANINE AMINOTRANSFERASE 49 IU/L (10-60); AST ASPARTATE AMINOTRANSFERASE 32 IU/L (10-42); BILIRUBIN,TOTAL 0.3 mg/dL (0.2-1.0); BUN - BLOOD UREA NITROGEN 20 mg/dL (6-20); CALCIUM 8.3 mg/dL (8.5-10.3); CARBON DIOXIDE - CO2 23 mmol/L (21-32); CHLORIDE 108 mmol/L (101-111); CREATININE 0.6 mg/dL (0.4-1.0); GFR - MDRD 98 (>89); GLUCOSE 111 mg/dL (70-100); SODIUM 139 mmol/L (135-145); TOTAL PROTEIN 5.9 g/dL (6.7-8.2)
[2018-04-02 06:23] LABS: VBG PH 7.389 (7.31-7.41)
[2018-04-02] MEDS: predniSONE 20 MG TABLET PO SCH (08:31)
[2018-04-02] MEDS: SODIUM CHLORIDE 0.9% 1,000 ML IV SCH (08:32)
[2018-04-02] MEDS: VENLAFAXINE ER 75 MG CAPSULE PO SCH (08:32)
[2018-04-02] MEDS: SACCHAROMYCES BOULARDII 250 MG CAPSULE PO SCH ×2 (08:32→17:22)
[2018-04-02] MEDS: POLYETHYLENE GLYCOL 3350 17 GM PACKET PO SCH (08:32)
[2018-04-02] MEDS: ENOXAPARIN 40 MG/0.4 ML SYRINGE SUBQ SCH ×3 (08:32→21:06)
[2018-04-02] MEDS: FAMOTIDINE 20 MG TABLET PO SCH (08:32)
[2018-04-02] MEDS: CALCIUM CARBONATE CHEW 500 MG TABLET PO SCH ×2 (08:32→21:08)
[2018-04-02] MEDS: NYSTATIN CREAM 15 GM TUBE TOP SCH ×2 (08:33→21:09)
[2018-04-02] MEDS ORDERED: SODIUM CHLORIDE 0.9% 1,000 ML IV SCH ×2 (09:02→12:02)
--- NOTE | 2018-04-02 11:29 | PROVIDER PROGRESS NOTE ---
Assessment/Plan - Problem List (1) Atrial fibrillation with RVR Assessment/Plan: New onset, per record review. EKG confirmed Afib and new non-specific ST-T changes. Will check 3 troponins to R/O coronary event, TSH to R/O hyperthyroidism. Check CXR today. CXR was done and showed mild CHF. Will stop iv fluids and give one dose of Lasix po, obtain Echo. CHADS score = poss CHF (by CXR), and age will be 73 in 1 month. Will increase Lovenox to therapeutic dose from prophylactic dose, until evaluated. Start oral Cardizem for rate control. (iv Cardizem was given when this began). She may be ready for DCh tomorrow. Will order Home Health: PT/OT to walker, PAULINO, and Aide. (2) Urinary tract infection Qualifiers: Urinary tract infection type: catheter-associated UTI Indwelling urinary catheter type: cystostomy catheter Encounter type: initial encounter Qualified Code(s): T83.510A - Infection and inflammatory reaction due to cystostomy catheter, initial encounter; N39.0 - Urinary tract infection, site not specified Assessment/Plan: The urine culture has grown Klebsiella and Pseudimonas. The Klebs is sensitive to the iv Ceftriaxone but the Pseudomonas is resistant to Ceftriaxone. Will change iv to oral antibiotic and choose one that both bacteria are sensitive to: Cipro. She may be ready for DCh tomorrow. Will order Home Health. (3) COPD (chronic obstructive pulmonary disease) Assessment/Plan: Xopenex started and Albuterol stopped, due to new Afib with RVR. Continue po Prednisone. The steroid use is probably the reason for increased WBC today. Obtain CXR to evaluate for infiltrate vs fluid. (4) Neurogenic bladder Assessment/Plan: Continue chronic indwelling suprapubic urinary bladder catheter (needed due to multiple sclerosis), and manage urinary incontinence per nursing care. (5) Sepsis Assessment/Plan: Resolved. - Current Meds Current Meds: Current Medications Generic Name Dose Route Start Last Admin Trade Name Freq PRN Reason Stop Dose Admin Hydrocodone Bitart/Acetaminophen 1 tab 03/30/18 17:45 04/02/18 00:27 [place] 5/325 PO 1 tab Q4HR PRN Administration Pain 5 to 7 Calcium Carbonate/Glycine 500 mg 03/31/18 09:00 04/02/18 08:32 Tums PO 500 mg BID PETRA Administration Diltiazem HCl 60 mg 04/02/18 09:04 04/02/18 09:18 Cardizem PO 60 mg Q6HR PETRA Administration Enoxaparin Sodium 60 mg 04/02/18 09:00 04/02/18 09:15 Lovenox SUBQ Not Given BID PETRA Famotidine 20 mg 03/31/18 09:00 04/02/18 08:32 Pepcid PO 20 mg DAILY PETRA Administration Ceftriaxone Sodium 2 gm/ 100 mls @ 200 mls/hr 03/31/18 16:00 04/01/18 16:48 Sodium Chloride IV Infused Q24H PETRA Infusion Sodium Chloride 1,000 mls @ 40 mls/hr 04/02/18 09:02 04/02/18 09:19 Normal Saline 0.9% IV 40 mls/hr .Q25H PETRA Administration Mineral Oil 1 applic 04/01/18 07:54 04/02/18 00:28 [place] TOP 1 applic PRN PRN Administration Skin Care Multi-Ingredient Ointment 1 applic 04/01/18 07:54 04/02/18 00:28 Zinc Oxide TOP 1 applic PRN PRN Administration Skin Care Nystatin 1 applic 03/30/18 21:00 04/02/18 08:33 Mycostatin Cream TOP 1 applic BID PETRA Administration Polyethylene Glycol 17 gm 03/31/18 09:00 04/02/18 08:32 Miralax PO 17 gm DAILY PETRA Administration Prednisone 40 mg 03/30/18 18:00 04/02/18 08:31 Deltasone PO 40 mg DAILYWM PETRA Administration Saccharomyces Boulardii 250 mg 03/31/18 08:00 04/02/18 08:32 Florastor PO 250 mg BIDWM PETRA Administration Sodium Chloride 10 ml 03/31/18 01:00 04/02/18 08:33 Normal Saline Flush 0.9% IVP 10 ml 0100,0900,1700 PETRA Administration Venlafaxine HCl 75 mg 03/31/18 00:18 04/02/18 08:32 Effexor Er PO 75 mg DAILY PETRA Administration - Lab Result Fish Bone Diagrams: 04/02/18 05:50 04/02/18 05:50 - Additional Planning My Orders: My Active Orders 04/02/18 09:00 Enoxaparin [Lovenox] 60 mg SUBQ BID 04/02/18 09:02 Sodium Chloride 0.9% [Normal Saline 0.9%] 1,000 ml IV 40 mls/hr 04/02/18 09:04 Chest 1 View X-Ray [XR] Routine diltiaZEM [Cardizem] 60 mg PO Q6HR 04/02/18 11:22 Echo Transthoracic Complete [ECHO] Routine 04/02/18 12:00 TROPONIN I [IAI] Timed 04/02/18 18:00 TROPONIN I [IAI] Timed Subjective - Subjective Patient Reports: Shortness of Breath Nursing Reports: Other (Pt needed extra nebulizer treatments for wheezing early this am.) Objective Vital Signs: Vital Signs - 24 hr 04/01/18 04/01/18 04/02/18 16:45 20:32 00:00 Temperature 36.6 C 36.4 C L Heart Rate 119 H Heart Rate [ 120 H 120 H Brachial] Respiratory 20 22 20 Rate Blood Pressure Blood Pressure 110/72 125/69 [Right Brachial artery] O2 Saturation 93 93 04/02/18 04/02/18 04/02/18 03:30 03:40 03:45 Temperature 36.3 C L Heart Rate 56 L Heart Rate [ 150 H 135 H Brachial] Respiratory 24 Rate Blood Pressure Blood Pressure [Right Brachial artery] O2 Saturation 88 L 90 L 04/02/18 04/02/18 04/02/18 04:54 04:56 05:01 Temperature Heart Rate Heart Rate [ 153 H 145 H Brachial] Respiratory 20 Rate Blood Pressure 118/60 Blood Pressure 118/60 135/57 H [Right Brachial artery] O2 Saturation 88 L 94 04/02/18 04/02/18 04/02/18 05:06 05:11 05:25 Temperature Heart Rate Heart Rate [ 132 H 132 H 122 H Brachial] Respiratory 20 Rate Blood Pressure Blood Pressure 119/56 L 111/66 108/49 L [Right Brachial artery] O2 Saturation 95 04/02/18 04/02/18 04/02/18 05:30 05:35 05:45 Temperature Heart Rate Heart Rate [ 125 H 124 H 121 H Brachial] Respiratory Rate Blood Pressure Blood Pressure 110/56 L 102/76 94/57 L [Right Brachial artery] O2 Saturation 04/02/18 04/02/18 04/02/18 08:00 08:50 09:18 Temperature 36.5 C Heart Rate 134 H Heart Rate [ 136 H Brachial] Respiratory 20 24 Rate Blood Pressure 130/65 Blood Pressure 130/65 [Right Brachial artery] O2 Saturation 93 04/02/18 10:01 Temperature 36.5 C Heart Rate 135 H Heart Rate [ Brachial] Respiratory 24 Rate Blood Pressure Blood Pressure [Right Brachial artery] O2 Saturation 95 Oxygen O2 Source Nasal cannula I&O (Last 24 Hrs): Intake and Output Totals x24h 03/31/18 04/01/18 04/02/18 23:59 23:59 23:59 Intake Total 3020 4591.666 1323.333 Output Total 775 1000 350 Balance 2245 3591.666 973.333 General: Alert, Oriented x3 HEENT: Mucous membr. moist/pink Neck: Supple, No JVD Neuro: Other (Truncal weakness, hands are tremulous) Cardiovascular: No murmurs Respiratory: No respiratory distress, Other (Scattered wheeze R base) Abdomen: Soft Genitourinary: Other (Catheter, smell of urine from bedsheets) Extremities: No edema - Results Results: Laboratory Results WBC 12.4 x10^3/uL (4.8-10.8) H 04/02/18 05:50 RBC 3.17 10^6/uL (4.20-5.40) L 04/02/18 05:50 Hgb 10.2 g/dL (12.0-16.0) L 04/02/18 05:50 Hct 30.6 % (37.0-47.0) L 04/02/18 05:50 MCV 96.4 fL (81.0-99.0) 04/02/18 05:50 MCH 32.3 pg (27.0-31.0) H 04/02/18 05:50 MCHC 33.5 g/dL (32.0-36.0) 04/02/18 05:50 RDW 13.7 % (12.0-15.0) 04/02/18 05:50 Plt Count 372 10^3/uL (130-450) 04/02/18 05:50 MPV 7.3 fL (7.9-10.8) L 04/02/18 05:50 Neut # (Auto) 9.4 10^3/uL (1.5-6.6) H 04/02/18 05:50 Lymph # (Auto) 2.1 10^3/uL (1.5-3.5) 04/02/18 05:50 [place] # (Auto) 0.8 10^3/uL (0.0-1.0) 04/02/18 05:50 Eos # (Auto) 0.0 10^3/uL (0.0-0.7) 04/02/18 05:50 Baso # (Auto) 0.0 10^3/uL (0.0-0.1) 04/02/18 05:50 Absolute Nucleated RBC 0.01 x10^3/uL 04/02/18 05:50 Nucleated RBC % 0.1 /100WBC 04/02/18 05:50 Manual Slide Review Indicated 03/30/18 12:42 WBC Morphology NORMAL APPEARANCE (NORMAL) 03/30/18 12:42 Platelet Estimate INCREASED (>450,000) (NORMAL) 03/30/18 12:42 Platelet Morphology NORMAL APPEARANCE (NORMAL) 03/30/18 12:42 RBC Morph Micro Appear NORMAL APPEARANCE (NORMAL) 03/30/18 12:42 D-Dimer 464.8 ng/mL (200.0-255.0) H 03/30/18 12:42 VBG pH 7.389 (7.31-7.41) 04/02/18 05:50 Ionized Calcium 1.13 mmol/L (1.15-1.33) L 04/02/18 05:50 Sodium 139 mmol/L (135-145) 04/02/18 05:50 Potassium 3.8 mmol/L (3.5-5.0) 04/02/18 05:50 Chloride 108 mmol/L (101-111) 04/02/18 05:50 Carbon Dioxide 23 mmol/L (21-32) 04/02/18 05:50 Anion Gap 8.0 (6-13) 04/02/18 05:50 BUN 20 mg/dL (6-20) 04/02/18 05:50 Creatinine 0.6 mg/dL (0.4-1.0) 04/02/18 05:50 Estimated GFR (MDRD) 98 (>89) 04/02/18 05:50 Glucose 111 mg/dL (70-100) H 04/02/18 05:50 Glycated Hemoglobin 5.3 % (4.6-6.2) 03/31/18 06:05 Estim Average Glucose 105 (70-100) H 03/31/18 06:05 Lactic Acid 1.1 mmol/L (0.5-2.2) 04/02/18 06:10 Calcium 8.3 mg/dL (8.5-10.3) L 04/02/18 05:50 Ionized Calcium YES 04/02/18 05:50 Magnesium 1.9 mg/dL (1.7-2.8) 03/30/18 12:42 Total Bilirubin 0.3 mg/dL (0.2-1.0) 04/02/18 05:50 AST 32 IU/L (10-42) 04/02/18 05:50 ALT 49 IU/L (10-60) 04/02/18 05:50 Alkaline Phosphatase 51 IU/L (42-121) 04/02/18 05:50 Troponin I 0.04 ng/mL (<0.49) 04/02/18 05:50 B-Natriuretic Peptide 83 pg/mL (5-100) 03/30/18 12:42 Total Protein 5.9 g/dL (6.7-8.2) L 04/02/18 05:50 Albumin 2.6 g/dL (3.2-5.5) L 04/02/18 05:50 Globulin 3.3 g/dL (2.1-4.2) 04/02/18 05:50 Albumin/Globulin Ratio 0.8 (1.0-2.2) L 04/02/18 05:50 Lipase 32 U/L (22-51) 03/30/18 12:42 TSH 0.78 uIU/mL (0.34-5.60) 04/02/18 05:50 Urine Color DARK YELLOW 03/30/18 13:12 Urine Clarity CLOUDY (CLEAR) 03/30/18 13:12 Urine pH 7.5 PH (5.0-7.5) 03/30/18 13:12 Ur Specific [place] 1.020 (1.002-1.030) 03/30/18 13:12 Urine Protein 100 mg/dL (NEGATIVE) H 03/30/18 13:12 Urine Glucose (UA) NEGATIVE mg/dL (NEGATIVE) 03/30/18 13:12 Urine Ketones 15 mg/dL (NEGATIVE) H 03/30/18 13:12 Urine Occult Blood LARGE (NEGATIVE) H 03/30/18 13:12 Urine Nitrite POSITIVE (NEGATIVE) H 03/30/18 13:12 Urine Bilirubin NEGATIVE (NEGATIVE) 03/30/18 13:12 Urine Urobilinogen 0.2 (NORMAL) E.U./dL (NORMAL) 03/30/18 13:12 Ur Leukocyte Esterase LARGE (NEGATIVE) H 03/30/18 13:12 Urine RBC 11-25 /HPF (0-5) H 03/30/18 13:12 Urine WBC >25 /HPF (0-5) H 03/30/18 13:12 Ur Squamous Epith Cells FEW Squamous (<= Few) 03/30/18 13:12 Urine Crystals 3-5 Triple Phosphate /LPF 03/30/18 13:12 Amorphous Sediment Moderate /LPF 03/30/18 13:12 Urine Bacteria Many /HPF (None Seen) H 03/30/18 13:12 Ur Microscopic Review INDICATED 03/30/18 13:12 Urine Culture Comments INDICATED 03/30/18 13:12 Influenza A (Rapid) Negative (Negative) 03/30/18 19:01 Influenza B (Rapid) Negative (Negative) 03/30/18 19:01 - Procedures Procedures: Procedures PERCUTANEOUS CYSTOSTOMY (12/24/12)
--- NOTE | 2018-04-02 11:44 | XRAY Report ---
Reason: SOB, wheezing Procedure Date: 04/02/2018 Accession Number: [id number] / [id number] Procedure: XR - Chest 1 View X-Ray CPT Code: 81684 FULL RESULT: EXAM: CHEST RADIOGRAPHY EXAM DATE: 04/02/2018 11:00 AM. CLINICAL HISTORY: Shortness of breath, wheezing. COMPARISON: Chest 1 view 03/30/2018 12:16 PM. TECHNIQUE: 1 view. FINDINGS: Examination is limited by rotation and single AP portable technique. There is peribronchial cuffing. Apparent asymmetric haziness of the right lung which was also seen previously is felt to be at least partially due to rotation. There are increased interstitial markings with subtle Zaid B lines and fluid in the horizontal fissure consistent with mild pulmonary edema. No lobar consolidation is identified. There is no large pleural effusion or pneumothorax. IMPRESSION: Peribronchial cuffing and mild pulmonary edema. RADIA
[2018-04-02] MEDS ORDERED: FUROSEMIDE 40 MG TABLET PO ONE (12:29)
[2018-04-02] MEDS ORDERED: VENLAFAXINE 37.5 MG TABLET PO SCH (13:00)
[2018-04-02] MEDS: MULTIVITAMIN W/MINERALS TABLET PO SCH (13:13)
[2018-04-02] MEDS: CIPROFLOXACIN 250 MG TABLET PO SCH ×2 (13:13→21:08)
[2018-04-02] MEDS: LEVALBUTEROL 1.25 MG/3 ML NEB INH PRN (20:43)
[2018-04-03] MEDS: SODIUM CHLORIDE FLUSH 0.9% 10 ML SYRINGE IVP SCH ×3 (00:20→18:00)
[2018-04-03] MEDS: LEVALBUTEROL 1.25 MG/3 ML NEB INH PRN ×2 (00:24→04:59)
[2018-04-03] MEDS: HYDROcod/ACETAM 5/325 MG TABLET PO PRN (04:33)
[2018-04-03] MEDS ORDERED: LORazepam 2 MG/ML VIAL IVP STA (05:40)
[2018-04-03 06:50] LABS: BASOPHILS % (AUTO) 0.2 %; EOSINOPHILS % (AUTO) 1.4 %; HGB - HEMOGLOBIN 10.9 g/dL (12.0-16.0); MEAN CORPUSCULAR HEMOGLOBIN 32.8 pg (27.0-31.0); MEAN CORPUSCULAR HGB CONC 34.2 g/dL (32.0-36.0); MEAN CORPUSCULAR VOLUME 95.9 fL (81.0-99.0); MEAN PLATELET VOLUME 7.4 fL (7.9-10.8); MONOCYTES % (AUTO) 5.2 %; NEUTROPHILS % (AUTO) 74.2 %; PLT - PLATELET COUNT 408 10^3/uL (130-450); RED BLOOD COUNT 3.31 10^6/uL (4.20-5.40); WHITE BLOOD COUNT 16.2 x10^3/uL (4.8-10.8)
[2018-04-03 06:57] LABS: ALBUMIN 2.9 g/dL (3.2-5.5); ALBUMIN/GLOBULIN RATIO 0.8 (1.0-2.2); ALKALINE PHOSPHATASE 60 IU/L (42-121); ALT ALANINE AMINOTRANSFERASE 103 IU/L (10-60); AST ASPARTATE AMINOTRANSFERASE 54 IU/L (10-42); BILIRUBIN,TOTAL 0.5 mg/dL (0.2-1.0); BUN - BLOOD UREA NITROGEN 20 mg/dL (6-20); CALCIUM 8.6 mg/dL (8.5-10.3); CARBON DIOXIDE - CO2 27 mmol/L (21-32); CHLORIDE 103 mmol/L (101-111); CREATININE 0.5 mg/dL (0.4-1.0); GFR - MDRD 121 (>89); GLUCOSE 109 mg/dL (70-100); SODIUM 139 mmol/L (135-145); TOTAL PROTEIN 6.5 g/dL (6.7-8.2)
[2018-04-03 08:28] LABS: ABNORMAL LYMPHS % (MANUAL) 0 %
[2018-04-03 08:30] LABS: BAND NEUTROPHILS % (MANUAL) 1 %; LYMPHOCYTES # (MANUAL) 2.9 10^3/uL (1.5-3.5); LYMPHOCYTES % (MANUAL) 18 %; METAMYELOCYTES % (MANUAL) 1 %; MYELOCYTES % (MANUAL) 1 %; NEUTROPHILS % (MANUAL) 73 %
[2018-04-03 08:31] LABS: DIFFERENTIAL COMMENT MANUAL DIFFERENTIAL; PLATELET ESTIMATE, MANUAL NORMAL (130-450,000) (NORMAL)
[2018-04-03] MEDS: POLYETHYLENE GLYCOL 3350 17 GM PACKET PO SCH (10:09)
[2018-04-03] MEDS: predniSONE 20 MG TABLET PO SCH (10:10)
[2018-04-03] MEDS: SACCHAROMYCES BOULARDII 250 MG CAPSULE PO SCH ×2 (10:10→18:09)
[2018-04-03] MEDS: CIPROFLOXACIN 250 MG TABLET PO SCH ×2 (10:11→20:31)
[2018-04-03] MEDS: FAMOTIDINE 20 MG TABLET PO SCH (10:11)
[2018-04-03] MEDS: CALCIUM CARBONATE CHEW 500 MG TABLET PO SCH ×2 (10:12→20:32)
[2018-04-03] MEDS: MULTIVITAMIN W/MINERALS TABLET PO SCH (10:12)
[2018-04-03] MEDS: ENOXAPARIN 60 MG/0.6 ML SYRINGE SUBQ SCH ×2 (10:12→20:32)
[2018-04-03] MEDS: VENLAFAXINE ER 75 MG CAPSULE PO SCH (10:12)
[2018-04-03] MEDS ORDERED: FUROSEMIDE 40 MG TABLET PO ONE (11:26)
[2018-04-03] MEDS ORDERED: AMIODARONE 360 MG/200 ML 200 ML IV ONE ×2 (11:27→15:30)
[2018-04-03] MEDS ORDERED: AMIODARONE 150 MG/100 ML 100 ML IV ONE ×2 (11:27→15:20)
--- NOTE | 2018-04-03 11:31 | PROVIDER PROGRESS NOTE ---
Subjective - Prog Note Date Prog Note Date: 04/03/18 Prog Note Time: 11:32 - Subjective Pt reports feeling: Worse Subjective: Last night, during the evening, she was short of breath. [place] anxious. Needed Ativan. She did respond nicely to the Lasix p.o. yesterday with good urine output. But as the day progressed she feels like she is sliding back to what she was before. She really does not feel the palpitations of the atrial fibrillation. She denies chest pain, diaphoresis, jaw pain. Today she is asking for more Ativan. She also wants to go home with oxygen. So far the troponins been negative, TSH has been normal. Echocardiogram was ordered but has not been done yet. Objective - Vital Signs/Intake & Output Reviewed Vital Signs: Yes Vital Signs: Vital Signs x48h Temp Pulse Pulse Resp BP BP Pulse Ox 04/03/18 08:00 35.9 C L 106 H 20 114/62 93 04/03/18 05:23 165/78 H 04/03/18 05:20 36.3 C L 125 H 20 165/78 H 92 04/03/18 05:00 113 H 26 H Intake & Output: Intake & Output 03/31/18 04/01/18 04/02/18 04/03/18 23:59 23:59 23:59 23:59 Intake Total 3020 4591.666 2213.333 290 Output Total 775 1000 1450 600 Balance 2245 3591.666 763.333 -310 - Objective General Appearance: positive: No acute distress, Mild distress (Anxiety and shortness of breath) Eyes Bilateral: positive: PERRL ENT: positive: Pharynx nml Neck: positive: No JVD. negative: Stiff neck, Carotid bruit Respiratory: positive: Chest non-tender, Wheezes, Other (Slight tachypnea, but no use of accessory muscles) Cardiovascular: positive: Irregularly irregular, Tachycardia (Comes and goes in spite of Cardizem p.o.), Systolic murmur. negative: Gallop/S4, Friction rub Abdomen: positive: Non-tender, No organomegaly, Nml bowel sounds, No distention Skin: positive: Warm, Dry Extremities: positive: Full ROM, No pedal edema Neurologic/Psychiatric: positive: Oriented x3, CN's nml (2-12) (May be deaf, spe aks in a loud voice), Motor nml - Lab Results Fish Bones: 04/03/18 06:18 04/03/18 06:18 Other Labs: Lab Results x24hrs 04/03/18 04/03/18 04/02/18 Range/Units 06:18 06:18 18:20 WBC 16.2 H (4.8-10.8) x10^3/uL RBC 3.31 L (4.20-5.40) 10^6/uL Hgb 10.9 L (12.0-16.0) g/dL Hct 31.7 L (37.0-47.0) % MCV 95.9 (81.0-99.0) fL MCH 32.8 H (27.0-31.0) pg MCHC 34.2 (32.0-36.0) g/dL RDW 14.0 (12.0-15.0) % Plt Count 408 (130-450) 10^3/uL MPV 7.4 L (7.9-10.8) fL Neut # (Auto) Not Reportable Lymph # (Auto) Not Reportable Sullivan # (Auto) Not Reportable Eos # (Auto) Not Reportable Baso # (Auto) Not Reportable Absolute Nucleated RBC Not Reportable Total Counted 100 Band Neuts % (Manual) 1 (0 - 10) % Abnorm Lymph % (Manual) 0 % Metamyelocytes % 1 H ( - 0) % Myelocytes % 1 H ( - 0) % Nucleated RBC % Not Reportable Neutrophils # (Manual) 12.0 H (1.5-6.6) 10^3/uL Lymphocytes # (Manual) 2.9 (1.5-3.5) 10^3/uL Monocytes # (Manual) 1.0 (0.0-1.0) 10^3/uL Eosinophils # (Manual) 0.0 (0-0.7) 10^3/uL Basophils # (Manual) 0.0 (0-0.1) 10^3/uL Differential Comment MANUAL DIFFERENTIAL Manual Slide Review [employer] Platelet Estimate NORMAL (130-450,000) (NORMAL) Sodium 139 (135-145) mmol/L Potassium 3.9 (3.5-5.0) mmol/L Chloride 103 (101-111) mmol/L Carbon Dioxide 27 (21-32) mmol/L Anion Gap 9.0 (6-13) BUN 20 (6-20) mg/dL Creatinine 0.5 (0.4-1.0) mg/dL Estimated GFR (MDRD) 121 (>89) Glucose 109 H (70-100) mg/dL Calcium 8.6 (8.5-10.3) mg/dL Ionized Calcium NO Total Bilirubin 0.5 (0.2-1.0) mg/dL AST 54 H (10-42) IU/L ALT 103 H (10-60) IU/L Alkaline Phosphatase 60 (42-121) IU/L Troponin I < 0.04 (<0.49) ng/mL Total Protein 6.5 L (6.7-8.2) g/dL Albumin 2.9 L (3.2-5.5) g/dL Globulin 3.6 (2.1-4.2) g/dL Albumin/Globulin Ratio 0.8 L (1.0-2.2) 04/02/18 Range/Units 12:35 WBC (4.8-10.8) x10^3/uL RBC (4.20-5.40) 10^6/uL Hgb (12.0-16.0) g/dL Hct (37.0-47.0) % MCV (81.0-99.0) fL MCH (27.0-31.0) pg MCHC (32.0-36.0) g/dL RDW (12.0-15.0) % Plt Count (130-450) 10^3/uL MPV (7.9-10.8) fL Neut # (Auto) Lymph # (Auto) Sullivan # (Auto) Eos # (Auto) Baso # (Auto) Absolute Nucleated RBC Total Counted Band Neuts % (Manual) (0 - 10) % Abnorm Lymph % (Manual) % Metamyelocytes % ( - 0) % Myelocytes % ( - 0) % Nucleated RBC % Neutrophils # (Manual) (1.5-6.6) 10^3/uL Lymphocytes # (Manual) (1.5-3.5) 10^3/uL Monocytes # (Manual) (0.0-1.0) 10^3/uL Eosinophils # (Manual) (0-0.7) 10^3/uL Basophils # (Manual) (0-0.1) 10^3/uL Differential Comment Manual Slide Review Platelet Estimate (NORMAL) Sodium (135-145) mmol/L Potassium (3.5-5.0) mmol/L Chloride (101-111) mmol/L Carbon Dioxide (21-32) mmol/L Anion Gap (6-13) BUN (6-20) mg/dL Creatinine (0.4-1.0) mg/dL Estimated GFR (MDRD) (>89) Glucose (70-100) mg/dL Calcium (8.5-10.3) mg/dL Ionized Calcium Total Bilirubin (0.2-1.0) mg/dL AST (10-42) IU/L ALT (10-60) IU/L Alkaline Phosphatase (42-121) IU/L Troponin I < 0.04 (<0.49) ng/mL Total Protein (6.7-8.2) g/dL Albumin (3.2-5.5) g/dL Globulin (2.1-4.2) g/dL Albumin/Globulin Ratio (1.0-2.2) - Diagnostic Imaging Diagnostic Imaging Results: positive: Final report reviewed Diagnostic Imaging Comments: CHEST RADIOGRAPHY EXAM DATE: 04/02/2018 11:00 AM. CLINICAL HISTORY: Shortness of breath, wheezing. COMPARISON: Chest 1 view 03/30/2018 12:16 PM. TECHNIQUE: 1 view. FINDINGS: Examination is limited by rotation and single AP portable technique. There is peribronchial cuffing. Apparent asymmetric haziness of the right lung which was also seen previously is felt to be at least partially due to rotation. There are increased interstitial markings with subtle Zaid B lines and fluid in the horizontal fissure consistent with mild pulmonary edema. No lobar consolidation is identified. There is no large pleural effusion or pneumothorax. IMPRESSION: Peribronchial cuffing and mild pulmonary edema. ABX Reporting Has patient been on IV antibiotics over the past 48 hours?: Yes Assessment/Plan - Problem List (1) Atrial fibrillation with RVR Impression: New onset, per record review EKG confirmed Afib and new non-specific ST-T changes. 3 troponins to R/O coronary event were negative, TSH to R/O hyperthyroidism. CXR was done 04/02/18 and showed mild CHF. Stopped iv fluids and given one dose of Lasix po, Echo ordered yesterday, not done as of yet. CHADS score = poss CHF (by CXR), and age will be 73 in 1 month. Will increase Lovenox to therapeutic dose from prophylactic dose, until evaluated. Started oral Cardizem for rate control. (iv Cardizem was given when this began). will now use amiodarone drip to see if I can convert her at <72 hours of afib Home Health: PT/OT to eval to see if she needs services (she may not bc of her chronic weakness and MS) RN, and Aide ordered and to be done today. (2) Urinary tract infection Qualifiers: Urinary tract infection type: catheter-associated UTI Indwelling urinary catheter type: cystostomy catheter Encounter type: initial encounter Qualified Code(s): T83.510A - Infection and inflammatory reaction due to cystostomy catheter, initial encounter; N39.0 - Urinary tract infection, site not specified Assessment/Plan: The urine culture has grown Klebsiella and Pseudimonas. The Klebs is sensitive to the iv Ceftriaxone but the Pseudomonas is resistant to Ceftriaxone. Will change iv to oral antibiotic and choose one that both bacteria are sensit shawna to: Cipro. Day #2 today She may be ready for DCh today but is still not well controlled w her rate. Will order Home Health/PT eval (3) COPD (chronic obstructive pulmonary disease) Assessment/Plan: Xopenex started and Albuterol stopped, due to new Afib with RVR. Continue po Prednisone. The steroid use is probably the reason for increased WBC Obtain CXR to evaluate for infiltrate vs fluid and it was fluid. Still wheezing today. (4) Neurogenic bladder Assessment/Plan: Continue chronic indwelling suprapubic urinary bladder catheter (needed due to multiple sclerosis), and manage urinary incontinence per nursing care. (5) Sepsis Assessment/Plan: Resolved. (6) Mild protein-calorie malnutrition Impression: Weight loss is 6% usual body weight. She has decreaed appetite in the past year "I'm just not hungry"
[2018-04-03] MEDS ORDERED: AMIODARONE 360 MG/200 ML 200 ML IV SCH (12:00)
[2018-04-03] MEDS: NYSTATIN CREAM 15 GM TUBE TOP SCH ×2 (14:04→20:33)
--- NOTE | 2018-04-03 17:39 | MISCELLANEOUS PROVIDER NOTE ---
Miscellaneous Provider Note - - Note: Called by Dr. Goel after patient's suprapubic catheter fell out and Dr. Goel explained to me that nursing is not allowed to replace the suprapubic catheter. Went to see the patient who was upset that she was not allowed to replace her own suprapubic catheter as she had used a serra screwdriver and fencing wire to replace it successfully in times past. After explaining exactly what I was going to do and with Perri in the room as my senior systems architect (Dr. Krzysztof Bansal was also present), I prepped the area in a sterile manner with Betadine, and inserted an 18 Fr Vinson catheter in the opening with mild difficulty as the hole had already started closing. The catheter went into the bladder with mild difficulty but with return of milky urine. The balloon was inflated with 10 mL of saline holding the catheter in place. The patient tolerated the procedure well.
[2018-04-03] MEDS: MIN OIL/DIMETHICON/COCONUT OIL 92 GM TUBE TOP PRN (21:00)
[2018-04-03] MEDS ORDERED: SODIUM CHLORIDE 0.9% 500 ML IV PRN (21:41)
[2018-04-03] MEDS: AMIODARONE 360 MG/200 ML 200 ML IV SCH (22:14)
[2018-04-04] MEDS: SODIUM CHLORIDE FLUSH 0.9% 10 ML SYRINGE IVP SCH ×3 (00:19→17:28)
[2018-04-04 04:57] LABS: ALBUMIN 2.8 g/dL (3.2-5.5); ALBUMIN/GLOBULIN RATIO 0.8 (1.0-2.2); ALKALINE PHOSPHATASE 67 IU/L (42-121); ALT ALANINE AMINOTRANSFERASE 84 IU/L (10-60); AST ASPARTATE AMINOTRANSFERASE 24 IU/L (10-42); BILIRUBIN,TOTAL 0.2 mg/dL (0.2-1.0); BUN - BLOOD UREA NITROGEN 17 mg/dL (6-20); CALCIUM 8.8 mg/dL (8.5-10.3); CARBON DIOXIDE - CO2 31 mmol/L (21-32); CHLORIDE 100 mmol/L (101-111); CREATININE 0.4 mg/dL (0.4-1.0); GFR - MDRD 156 (>89); GLUCOSE 103 mg/dL (70-100); SODIUM 141 mmol/L (135-145); TOTAL PROTEIN 6.5 g/dL (6.7-8.2)
[2018-04-04] MEDS: ENOXAPARIN 60 MG/0.6 ML SYRINGE SUBQ SCH ×2 (08:18→20:32)
[2018-04-04] MEDS: predniSONE 20 MG TABLET PO SCH (08:18)
[2018-04-04] MEDS: POLYETHYLENE GLYCOL 3350 17 GM PACKET PO SCH (08:18)
[2018-04-04] MEDS: SACCHAROMYCES BOULARDII 250 MG CAPSULE PO SCH ×2 (08:18→17:28)
[2018-04-04] MEDS: CALCIUM CARBONATE CHEW 500 MG TABLET PO SCH ×2 (08:18→21:22)
[2018-04-04] MEDS: CIPROFLOXACIN 250 MG TABLET PO SCH ×2 (08:18→20:32)
[2018-04-04] MEDS: FAMOTIDINE 20 MG TABLET PO SCH (08:18)
[2018-04-04] MEDS: MULTIVITAMIN W/MINERALS TABLET PO SCH (08:18)
[2018-04-04] MEDS: VENLAFAXINE ER 75 MG CAPSULE PO SCH (08:18)
[2018-04-04] MEDS: ZINC OXIDE 20% OINT 28.35 GM TUBE TOP PRN (08:19)
[2018-04-04] MEDS: NYSTATIN CREAM 15 GM TUBE TOP SCH ×2 (08:20→21:23)
[2018-04-04] MEDS: AMIODARONE 200 MG TABLET PO SCH (09:16)
[2018-04-04] MEDS: AMIODARONE 360 MG/200 ML 200 ML IV SCH (09:24)
[2018-04-04] MEDS: LEVALBUTEROL 1.25 MG/3 ML NEB INH PRN ×2 (09:25→16:44)
[2018-04-04] MEDS: HYDROcod/ACETAM 5/325 MG TABLET PO PRN (14:17)
[2018-04-05] MEDS: SODIUM CHLORIDE FLUSH 0.9% 10 ML SYRINGE IVP SCH ×2 (00:13→07:54)
[2018-04-05] MEDS: MULTIVITAMIN W/MINERALS TABLET PO SCH (07:53)
[2018-04-05] MEDS: predniSONE 20 MG TABLET PO SCH (07:53)
[2018-04-05] MEDS: CALCIUM CARBONATE CHEW 500 MG TABLET PO SCH (08:48)
[2018-04-05] MEDS: CIPROFLOXACIN 250 MG TABLET PO SCH (08:48)
[2018-04-05] MEDS: FAMOTIDINE 20 MG TABLET PO SCH (08:48)
[2018-04-05] MEDS: POLYETHYLENE GLYCOL 3350 17 GM PACKET PO SCH (08:49)
[2018-04-05] MEDS: ENOXAPARIN 60 MG/0.6 ML SYRINGE SUBQ SCH (08:49)
[2018-04-05] MEDS: AMIODARONE 200 MG TABLET PO SCH (08:49)
[2018-04-05] MEDS: VENLAFAXINE ER 75 MG CAPSULE PO SCH (08:52)
[2018-04-05] MEDS: SACCHAROMYCES BOULARDII 250 MG CAPSULE PO SCH (08:52)
[2018-04-05] MEDS: NYSTATIN CREAM 15 GM TUBE TOP SCH (08:54)
--- NOTE | 2018-04-05 11:38 | Discharge Plan ---
Discharge Plan Disposition: Home Health Service Condition: Fair Prescriptions: Amiodarone [Pacerone] 200 mg PO DAILY #30 tablet Apixaban [Eliquis] 5 mg PO BID #60 tablet Ciprofloxacin [Cipro] 500 mg PO BID #10 tablet Diet: Regular Activity Restrictions: Activity as Tolerated Shower Restrictions: No Driving Restrictions: Yes (no driving) Assistance Devices: Wheelchair Instruction Topics: UTI, Stroke Prevent Live W Atrial Fib, Atrial Fibrillation Additional Instructions or Follow Up instructions: You were admitted to the hospital because you were short of breath. You had already been treated as possible exacerbation of chronic obstructive lung disease with an inhaler. In spite of that you were continuing to be short of breath. You came to the emergency room and were found to have 2 problems. One was a urinary tract infection with a high white cell count, contaminated urine, and an elevated acid level of lactic acid. We treated you with antibiotics and you did well. You will go home on ciprofloxacin 500 mg tablet twice a day for 5 more days. You are at risk for getting another urinary tract infection because you have a suprapubic catheter. During the stay we had to replace your suprapubic catheter because it fell out. The second thing we found you to have was atrial fibrillation which is an irregularly irregular heart rate. We tried different medications to slow down your heart rate. We tried metoprolol, then we tried Cardizem. That did not work so we put you on amiodarone and that seemed to have brought your heart rate down into the 80s and 90s. In order to prevent risk of stroke, you have been placed on a blood thinner called Eliquis. Please see your primary care provider in the next 1-2 weeks. He will go over your medication list. He will also make any referrals to specialty evaluation such as a proposal lead writer if you need one. The blood thinner can make you have increased risk of bleeding. For instance you may have more irritation at your suprapubic catheter tube and have a little blood in your urine. But if you have bloody stools, bloody nose, grossly bloody urine with lots of clots in it, you must stop the Eliquis and call your primary care provider. You cannot take any medicine such as ibuprofen, Aleve, Naprosyn, or aspirin. The only [id number] pain medicine or fever medicine you can take is Tylenol. That is because anti-inflammatory medicines can interact with the Eliquis. No Smoking: If you smoke, Please STOP! Call for help. Follow-up with: Fady Mcintosh DO [Primary Care Provider] -
[2018-04-05] MEDS: LEVALBUTEROL 1.25 MG/3 ML NEB INH PRN (12:30)
[2018-04-05 13:19] VITALS: BP 111/70
--- NOTE | 2018-04-05 18:53 | PROVIDER PROGRESS NOTE ---
Subjective - Prog Note Date Prog Note Date: 04/04/18 Prog Note Time: 18:00 - Subjective Pt reports feeling: No change Subjective: When asked if she feels ill at all she states that she does not. She feels like she does when she is at home. She has her usual aches and pains. The usual illnesses that she feels because of her multiple sclerosis and bedbound status. But she does not feel any worse than usual. She denies fevers, chills, nausea, vomiting. Her suprapubic catheter is in place again after it fell out yesterday. She is not coughing. Does not feel chest congestion. She has shared with me and the nurses that she sometimes has her catheter fell out at home. She uses her own wires to strengthen up and lengthen the Vinson catheter and then she puts it in herself and uses a screwdriver to tack it in place. I cannot tell if she is joking or not. Objective - Vital Signs/Intake & Output Vital Signs: Vital Signs x48h Temp Pulse Pulse Resp BP Pulse Ox 04/05/18 12:50 36.7 C 84 18 111/70 99 04/05/18 12:30 82 15 Intake & Output: Intake & Output 04/02/18 04/03/18 04/04/18 04/05/18 23:59 23:59 23:59 23:59 Intake Total 2213.333 1590 2541.0 750 Output Total 1450 1245 655 125 Balance 763.265 008 6425.0 625 - Objective General Appearance: positive: No acute distress, Alert Eyes Bilateral: positive: PERRL, EOMI ENT: positive: No signs of dehydration Neck: positive: No JVD. negative: Stiff neck, Carotid bruit Respiratory: positive: Chest non-tender. negative: Wheezes, Rales, Rhonchi Cardiovascular: positive: Irregularly irregular, Tachycardia (At times in the low 100s but usually below 110). negative: Gallop/S4, Friction rub Abdomen: positive: Non-tender, No organomegaly, Nml bowel sounds, No distention. negative: Guarding, Rebound Skin: positive: Warm, Dry Extremities: positive: No pedal edema Neurologic/Psychiatric: positive: Oriented x3, CN's nml (2-12). negative: Motor nml, Facial droop, Slurred/abnml speech, Depressed mood/affect - Lab Results Fish Bones: 04/03/18 06:18 04/04/18 04:10 ABX Reporting Has patient been on IV antibiotics over the past 48 hours?: Yes Assessment/Plan - Problem List (1) Atrial fibrillation with RVR Impression: New onset, per record review EKG confirmed Afib and new non-specific ST-T changes. 3 troponins to R/O coronary event were negative, TSH to R/O hyperthyroidism. CXR was done 04/02/18 and showed mild CHF. Stopped iv fluids and given one dose of Lasix po, Echo Echocardiogram shows moderate left ventricular enlargement. Ejection fraction is severely impaired at 25-30%. Severe global hypokinesis. Mild mitral regurgitation. Left atrium with moderate to severe increase in the left atrial volume index and moderate right atrial enlargement. Where she has mild mitral regurgitation, the rest of her aortic and tricuspid valves are not really impressive. CHADS score = poss CHF (by CXR), and age will be 73 in 1 month. Will increase Lovenox to therapeutic dose from prophylactic dose, until evaluated. She will be sent home on eliquis. Started oral Cardizem for rate control but I used amiodarone drip to see if I can convert her at <72 hours of afib. She is not converted. Will transition to po admiodarone after drip stops. Home Health: PT/OT to eval to see if she needs services (she may not bc of her chronic weakness and MS) RN, and Aide ordered and to be done today. (2) Urinary tract infection Qualifiers: Urinary tract infection type: catheter-associated UTI Indwelling urinary catheter type: cystostomy catheter Encounter type: initial encounter Qualified Code(s): T83.510A - Infection and inflammatory reaction due to cystostomy catheter, initial encounter; N39.0 - Urinary tract infection, site not specified Assessment/Plan: The urine culture has grown Klebsiella and Pseudomonas. The Klebs is sensitive to the iv Ceftriaxone but the Pseudomonas is resistant to Ceftriaxone. Will change iv to oral antibiotic and choose one that both bacteria are sensitive to: Cipro. Day #3 today. I'm not happy WBC is climbing. She may be ready for DCh from this perspective but is still not well controlled w her rate. Will order Home Health/PT eval (3) COPD (chronic obstructive pulmonary disease) Assessment/Plan: Xopenex started and Albuterol stopped, due to new Afib with RVR. Continue po Prednisone. The steroid use is probably the reason for increased WBC Obtain CXR to evaluate for infiltrate vs fluid and it was fluid. Still wheezing today. (4) Neurogenic bladder Assessment/Plan: Continue chronic indwelling suprapubic urinary bladder catheter (needed due to multiple sclerosis), and manage urinary incontinence per nursing care. (5) Sepsis Assessment/Plan: Resolved. (6) Mild protein-calorie malnutrition Impression: Weight loss is 6% usual body weight. She has decreaed appetite in the past year "I'm just not hungry"
--- NOTE | 2018-04-06 21:59 | DISCHARGE SUMMARY ---
Physician: Graciela Goel MD DATE OF ADMISSION: 03/30/2018 DATE OF DISCHARGE: 04/05/2018 DISCHARGE DIAGNOSES 1. Sepsis. 2. Urinary tract infection with Klebsiella. 3. Chronic obstructive pulmonary disease exacerbation. 4. Atrial fibrillation with rapid ventricular response, new diagnosis. 5. Neurogenic bladder from multiple sclerosis. 6. Mild protein calorie malnutrition. 7. New diagnosis of systolic congestive heart failure, ejection fraction 25- 30%. DISCHARGE MEDICATIONS 1. Albuterol inhaler 2 puffs 4 times a day as needed. 2. Vicodin 5/325 one tablet every 4 hours as needed. 3. Effexor 75 mg daily. 4. Amiodarone 200 mg daily. 5. Eliquis 5 mg p.o. b.i.d. 6. Cipro 500 mg p.o. b.i.d. for 5 more days. PRINCIPAL PROCEDURE 1. Urine culture growing Klebsiella and Pseudomonas. Klebsiella is resistant to ampicillin and indeterminate with nitrofurantoin. Pseudomonas is resistant to amoxicillin, ampicillin, cefazolin, ceftriaxone, cefuroxime, nitrofurantoin and tetracycline. Also, resistant to Bactrim. 2. Blood cultures, no growth after 5 days. 3. Chest x-ray, negative for active cardiopulmonary process. 4. Chest thorax CT angiogram showing no evidence of pulmonary emboli, no acute pulmonary findings, distended gallbladder with a minimal amount of ascites adjacent to the spleen that is new. 5. Chest x-ray, repeat for followup of shortness of breath showing peribronchial cuffing and mild pulmonary edema pattern. 6. Moderate left ventricular enlargement. Left ventricular systolic function severely impaired with ejection fraction 25-30%. Severe global hypokinesis of LV contractility. Mild global ventricular enlargement. Right ventricular systolic function normal. Mild mitral regurgitation. HOSPITAL COURSE: This lady is a 72-year-old female who has multiple sclerosis. She lives alone in her own home and gets a care provider that comes by about 2 hours a day. Multiple notations were made in the medical record that she is basically sedentary and almost bedbound. Nevertheless, she lives alone in her house with a care provider only coming 2 hours a day. Previous care providers are noted to have not taken good care of her, and she has had maggot infestation this summer. Sometimes her suprapubic catheter falls out and the patient herself will poke a hole in the opening of her abdominal wall when it closes to reinsert her own old suprapubic catheter. She does not do it under sterile conditions. She has a history of recurrent chronic UTIs. She was just recently seen by palliative care because a new rash on her back. She was felt to be incontinent of stool and urine in her bed. She developed a contact dermatitis as well as possible fungal rash. On the day of admission, she stated that she was having shortness of breath starting the day before admission. She obtained an inhaler because she was short of breath. She used it for the first time because she feels that maybe it was her asthma and COPD. She does not take chronic oxygen nor does she take any chronic medications on a regular basis for COPD. Throughout the night, she continued to cough and wheeze and her shortness of breath continued to worsen to the point where she came to the hospital on the day of admission. She denied any fever or chills. She said she has not been very compliant with her medications for the treatment of her UTI. She denied chest pain or palpitations. In the emergency room, she was tachycardic with a heart rate of 125, hypertensive and tachypneic with a respiratory rate of 24 and O2 saturation of 88% on room air. When she was in her home and EMS was picking her up, her O2 saturation was mid 80s. She did improve somewhat with nebulizer treatment and steroids in the emergency room, but she continued to have wheezing continued to have O2 saturations in the low 90s. She had a leukocytosis of 28.6 as well as a positive UA with large leukocyte esterase, positive nitrites, large amount of blood and greater than 25 white cells with many bacteria. The patient was felt to have had sepsis, most likely from her UTI. She was also felt to have mild chronic obstructive pulmonary disease exacerbation. She was treated with IV antibiotics for the UTI, and IV steroids with nebulizers. When she was admitted, her initial EKG was sinus rhythm. Then, on 04/02/2018, the patient had new shortness of breath and EKG at that time showed her to have new onset atrial fibrillation. Serial troponins were negative. TSH was normal. Chest x-ray showed mild early changes of CHF. She was given 1 dose of Lasix p.o. and an echocardiogram was obtained. Echocardiogram results are as above. On that day, her IV antibiotics were changed to oral antibiotics. She was changed to Cipro to cover both bugs. Because of the atrial fibrillation, albuterol was stopped and Xopenex was started. The next day, on 04/03/2018, her indwelling Vinson suprapubic catheter fell out and it was replaced with a new catheter by Dr. Gallardo. She was instructed to quit putting in her Vinson with a screwdriver. She also describes getting her own wires and stiffening up the Vinson to be able to insert it better and she was told not to do that as well. That night she was feeling anxious, needed Ativan. She had good urine output during the day because of the p.o. Lasix, but as the evening went on, she felt better with the Ativan and had no further shortness of breath. She is felt to have mild protein-calorie malnutrition with weight loss of 6% of her ideal body weight. She was describing having a decreased appetite in the past year and just "not being hungry." While she was on IV then oral steroids during her stay, she was not continued on po steroids since I felt most of her sob was from the atrial fibrillation. She was on steroids 6 days. Patients can be on steroids for up to 3 weeks without a taper. She was not tapered. Overall, this woman probably does not live in an appropriately supportive environment, but she is independent, has not really wanted more hours and had declined through director social welfare, more hours and more help in the home. Physical Therapy attempted to see the patient, but she shooed the physical therapy away and said that she does not want to increase her endurance and does not want to do physical therapy to help her in the home. Palliative care therapy is continuing to see the patient. Currently, the patient does have a daughter and , but they both live in [place] since she is estranged from her . The daughter says that she will finish taking care of her father and then hopefully find the time to come up to [place] to help take care of her mom. With stopping her IV antibiotics, I am going to oral antibiotics, her white cell count did start to climb again. She initially came in with a white count of 28,000 and was down to 9.8. On the day of discharge, she was 16.2. I carefully queried the patient asked her if she felt any worse than usual. The patient's stoutly maintained that she feels perfectly fine, that she is the best she has been that she felt like she was stable as she usually is at home and did not feel any sicker than normal. On the day of discharge and the day before discharge, she had not had any chest pain, palpitations. Her shortness of breath was stable. There was no fever. She had no abdominal pain and wanted to go home. Overall, this clinical picture leaves me uneasy because this patient is noncompliant, does not have much self-awareness about illness, and had already come in with an elevated lactic acid and elevated white cell count. Nevertheless, she wanted to go home. I did speak about the case with her primary care provider's office. Dr. Fady Mcintosh is her usual PCP, but he was out of the office, and I spoke to his partner. I asked if she could please be carefully reviewed for her congestive heart failure, compliance, and possible return of her UTI because of her rising WBC. I did ask for home health referral for retirement to follow up on her clinical picture of UTI and Vinson care. I would like a home health aide to help her bathe and even though she declined physical therapy, wondered if occupational therapy could help her with getting about her home more safely using her walker. I also feel that she will probably end up needing more medication for her reduced ejection fraction. During her stay, Cardizem, Lopressor were not controlling her rate. In retrospect with the low ejection fraction, Cardizem was probably not the best drug. She was amiodarone loaded in the ICU, and then switched to oral amiodarone. Heart rate remained in the 80s for the last 24 hours of discharge. She was in the 90s on 04/03/2018 and on 04/04/2018 and then going down to the 80s on 04/05/2018. I would judiciously start an CHRISTEL inhibitor on her, low dose at 2.5 mg. Then possible Coreg or metoprolol also at a low dose. Consider Lasix as the last drug to give her in this cachectic lady who already has poor p.o. intake. She is discharged in stable condition, but because of noncompliance and her home life, I do not know how long she will be able to stay at home safely and may bounce back as readmission. PHYSICAL EXAMINATION VITAL SIGNS: Temperature is 36.7, pulse is 84 and irregular, blood pressure 111/70, respirations 18, and she is 99% on room air. GENERAL: She is a very slender, almost cachectic, elderly woman, who looks older than her stated age. She carries her stuffed toy cat with her everywhere and treats it with bandages, EKG electrodes to mimic heart illness and speaks to it all the time, and turns the animal to us for us to speak to it all the time. LUNGS: The patient has clear lungs. Right now that she does not have any crackles. HEART: Irregular rate and rhythm, is slow in control. She has a systolic ejection murmur that is loudest at the left lower sternal border. ABDOMEN: Scaphoid, nontender. She has been a new suprapubic Vinson catheter in place by Dr. Gallardo. EXTREMITIES: All showed diffuse muscle wasting. She has much weaker lower extremities than upper extremities. NEUROLOGIC: She is alert, oriented to person, place and time and able to follow instructions. Greater than 30 minutes was spent in coordinating discharge, speaking to Home Health, and speaking to Dr. Mcintosh's office. cc: Fady Mcintosh DO TD: 04/06/2018 19:30 GUI
== END 2018-04-05 01:15 | disposition home health service (06) | DRG 698 ==
LOC: EDUNIT# → ED 11:36 → MS2 17:45 → ICU 04-03 15:11 → MS3 04-04 15:56
PROVIDERS: ADMIT Internal Medicine; ATTEND Specialist
PROC: 0T9B30Z Drainage of Bladder with Drainage Device, Percutaneous Approach (ICD-10-PCS; principal; 2018-04-03)
DX: T83.510A Infection and inflammatory reaction due to cystostomy catheter, initial encounter (principal); A41.59 Other Gram-negative sepsis; A41.52 Sepsis due to Pseudomonas; N39.0 Urinary tract infection, site not specified; J44.1 Chronic obstructive pulmonary disease with (acute) exacerbation; E44.1 Mild protein-calorie malnutrition; Z68.1 Body mass index [BMI] 19.9 or less, adult; F03.90 Unspecified dementia, unspecified severity, without behavioral disturbance, psychotic disturbance, mood disturbance, and anxiety; F17.200 Nicotine dependence, unspecified, uncomplicated; I50.20 Unspecified systolic (congestive) heart failure; E87.2 Acidosis; T83.020A Displacement of cystostomy catheter, initial encounter; Y84.6 Urinary catheterization as the cause of abnormal reaction of the patient, or of later complication, without mention of misadventure at the time of the procedure; Y92.230 Patient room in hospital as the place of occurrence of the external cause; I48.91 Unspecified atrial fibrillation; T36.96XA Underdosing of unspecified systemic antibiotic, initial encounter; Z91.128 Patient's intentional underdosing of medication regimen for other reason; Y92.009 Unspecified place in unspecified non-institutional (private) residence as the place of occurrence of the external cause; R31.29 Other microscopic hematuria; R09.02 Hypoxemia; G35 Multiple sclerosis; N31.9 Neuromuscular dysfunction of bladder, unspecified; N39.498 Other specified urinary incontinence; F32.9 Major depressive disorder, single episode, unspecified; F41.9 Anxiety disorder, unspecified; H91.90 Unspecified hearing loss, unspecified ear; M19.90 Unspecified osteoarthritis, unspecified site; M25.559 Pain in unspecified hip; Z16.24 Resistance to multiple antibiotics; Z96.649 Presence of unspecified artificial hip joint; Z74.01 Bed confinement status; Z60.2 Problems related to living alone; Z72.0 Tobacco use; Z79.899 Other long term (current) drug therapy
CPT/HCPCS: 36415; 51703; 71045; 71275; 80053; 81001; 81003; 82330; 83036; 83605; 83690; 83735; 83880; 84443; 84484; 85025; 85379; 87040; 87077; 87086; 87150; 87181; 87275; 87276; 93005; 93306; 94640; 96365; 96375; 99283; 99284

== ENCOUNTER 2018-04-05 13:14 | Outpatient (CLI) | payer MEDICARE, OTHER | END 2018-04-05 13:15 | disposition home or self-care (01) | LOC: EMS 13:14 | PROVIDERS: ATTEND Surgery | DX: R53.1 Weakness (principal); N39.0 Urinary tract infection, site not specified; Z74.01 Bed confinement status | CPT/HCPCS: A0425; A0428 ==

== ENCOUNTER 2018-04-06 14:00 | Outpatient (CLI) | payer MEDICARE, OTHER ==
--- NOTE | 2018-04-06 16:44 | CONSULTATION NOTE ---
Palliative Care Follow Up - Referral Referring Provider: Dr Mcintosh Time of Visit: 04/06/2018. 14:05 - 15:00 Referral setting: Home (Patient seen in home setting due to taxing and considerable effort required to leave the home due to being bedridden secondary to advancing chronic-progressive type multiple sclerosis.) - Information Sources Records reviewed: Previous records reviewed History/Review of Systems obtained from: Patient, Family, Caregiver - History of Present Illness Update Brief HPI Update: Face to Face for Home Health Patient has been bedbound for 3 years and with a suprapubic catheter, secondary to advancing MS. She was just discharged 04/05/18 from hospital for COPD exacerbation, afib, and UTI. She has a history of recurrent UTIs and would benefit from Nursing oversight for maintenance of suprapubic catheter, and education for the patient and her private caregiver regarding catheter maintenance and medications. 72 year old woman originally from [facility], has indwelling suprapubic catheter and is totally bedbound x 3 years due to advancing chronic/progressive type multiple sclerosis. She was hospitalized 03/30/18 - 04/05/18 for UTI and atrial fibrillation and possible COPD exacerbation. Medical history: Chronic, progressive multiple sclerosis; depression; h/o small bowel obstruction in Apr 2017; R hip replacement; frozen L knee from OA, unable to extend; PVD/venous insufficiency; chronic cystitis; suprapubic catheter; h/o pressure wound on trunk; insomnia; tobacco use disorder; R hip replaced; chronic pain L hip, chronic contracture knee of LLE. -Patient had used albuterol inhaler, followed by acute SOA. EMS were called, patient was taken to ED and then admitted to [facility]. -She was found to be in atrial fibrillation, and several meds were tried (metoprolol and Cardizem) before amiodarone, which brought the HR down into 80s- 90s. She was DC'd with amiodarone. -She was also started on Eliquis for anticoagulation. -She was started on antibiotics for her UTI, and was DC'd on Ciprofloxacin 500mg BID for 5 more days. -Hospitalist recommended follow up with her PCP, whose office called today to set up an appointment. -The patient declined due to the difficulty of getting in wheelchair and into and out of vehicles, even [employer]. -I telephoned the PCP clinic to let them know I have seen her today. -Her SOA lasted several days in the hospital. She was hoping to be DC'd on oxygen, but O2 sats are in the 90s on room air so she doesn't qualify for Medicare to pay for it. She stated in the hospital that she would purchase it on her own, if necessary. -She is alert today, with some SOA. She does not plan to use the albuterol inhaler again and does not want any further medications at this time: she wants to wait and see how it goes. -She did report a panic attack in the hospital due to respiratory distress, which didn't resolve until she was given anti-anxiety meds. (She saw her brother who a year ago and she thought she was dying.) -Her private caregiver, Ning, has organized her medications in a pillbox. She was not present today; I phoned her and she confirmed she is making sure that the patient is taking them as directed. -The patient is agreeable to having Home Health RN for catheter maintenance. She says [facility] is taking care of it, but a second set of eyes would be beneficial. -I telephoned [facility] and reviewed her past history of medical non- compliance. -Patient is vague about answering how regularly she has changed her catheter on her own. She eventually conceded that it could have been several months in between catheter changes. -Ning states she is changing the catheter monthly now. -Patient's rash on back has improved, though still visible. She reports no itching in the hospital, but it's started up again since being home. -Patient "quit" smoking in hospital, but has started again since discharge -- "one cigarette only" as she told her daughter. Social History - Living Situation Living arrangement: At home Living Situation: With caregiver(s) Support System: -The patient lives by herself. Her caregiver, Ning, comes every morning for a few hours. She also has a male helper who helps around the house -Her daughter is Nevaeh Mann, , she lives in [facility]. -The patient has signed papers giving her daughter and POA authority, but the patient is not sure where they are. -The patient has been from her for many years but they are on good terms. He lives in [place] near their daughter. Medications/Allergies - Medications Home Medications: Ambulatory Orders Medication Instructions Recorded Confirmed Hydrocodone/Acetaminophen 1 tab PO Q4H PRN 04/14/17 03/30/18 [Hydrocodone-Acetamin 5-325 mg] Albuterol Sulfate [Proair Hfa 2 puffs PO QID PRN 03/28/18 03/30/18 Inhaler] Venlafaxine [Effexor] 75 mg PO DAILY 03/30/18 03/30/18 Amiodarone [Pacerone] 200 mg PO DAILY #30 tablet 04/05/18 Apixaban [Eliquis] 5 mg PO BID #60 tablet 04/05/18 Ciprofloxacin [Cipro] 500 mg PO BID #10 tablet 04/05/18 - Allergies Allergies/Adverse Reactions: Allergies Allergy/AdvReac Type Severity Reaction Status Date / Time No Known Drug Allergies Allergy Verified 03/30/18 11:44 Review of Systems - Constitutional Constitutional: reports: Weakness, Poor appetite, Weight loss (She reports weight loss but doesn't know her current weight. She has always been slender.) - Ears, Nose & Throat Ears, Nose & Throat: reports: Hearing loss, Dentures (top only) - Cardiovascular Cardiovascular: reports: Irregular heart rate. denies: Palpitations, Chest pain - Respiratory Respiratory: reports: SOB at rest - Musculoskeletal Musculoskeletal: reports: Joint pain (L knee, chronic contractures), Assistive devices (Wheelchair) - Integumentary Integumentary: reports: Rash (on back; improved) - Neurological Neurological: reports: General weakness (secondary to MS), Other Physical Exam - Vital Signs Temperature: 96.5 F Pulse Rate: 76 O2 Saturation: 95 (room air) Blood Pressure: 125/68 (arm cuff) - Physical Exam General Appearance: positive: No acute distress, Alert Eyes Bilateral: positive: No lid inflammation, Conjunctivae nml, No scleral icterus ENT: positive: No signs of dehydration Neck: positive: Trachea midline Cardiovascular: positive: Regular rate & rhythm Respiratory: positive: Wheezes (mild on inspiration), Rhonchi (mild, on expiration) Abdomen: positive: Soft Skin: positive: Pallor, Rash (improved since hospitalization.) Neurologic/Psychiatric: positive: Oriented x3, Mood/affect nml Palliative Care - POLST Patient has POLST: Yes POLST Status: Full Code - Palliative Care Discussion: Spoke with daughter, Nevaeh, about new medications and the plan [facility], which she agrees with. Nevaeh is arriving on 04/13 for a few days. She states her mother has started smoking again, "one cigarette only," but has expressed interest in either nicotine patches or Chantix. Since she has a h/o medication non-compliance, patches might have a better chance of success, assuming she commits to not smoking. Nevaeh's concern is her mother's history of non-compliance, as well as her unorthodox and alarming "do it yourself" approach to medicine, such as inserting a screwdriver into her catheter opening to reinsert the catheter. Or using insecticide to clean it out when she discovered a maggot infestation. She thinks her mother's situation has improved with Ning being her caregiver, helping her be medically compliant. I phoned [facility] who confirmed she has organized the new medications in pill dispensers, and that she will make sure the patient is taking her medications. Impression and Recommendations - Palliative Care Impression: 72 year old woman originally from [place], has a suprapubic catheter and is totally bedbound due to advancing chronic/progressive type multiple sclerosis. She was just DC'd from hospital for COPD exacerbation, new atrial fibrillation, and UTI. She has a long history of medical noncompliance and she could benefit Home Health RN services for catheter maintenance and medication oversight and education. Palliative Care will continue to provide ongoing monitoring and support. Recommendations/Counseling Done: UTI/suprapubic catheter: Discharged from hospital on Ciprofloxacin 500mg PO BID. Recommend Home Health Nursing ([facility]) for catheter maintenance, as well as medication oversight and education. Atrial fibrillation: Hospital started amiodarone 200mg PO daily (#30) for rate control, and apixaban 5mg PO BID (#60) for anticoagulation. Chronic, progressive MS: Stable. Totally bedbound. A/P mattress overlay was recommended on previous visit and the order is in progress. SOA: Patient is doing "pursed lip" breathing, reports she has done it for years. Has some mild wheezing and rhonchi; declines any additional medications or inhalers for the time being. Wants to wait and see. Her O2 sats are 95%. She does not qualify for Medicare to cover oxygen, but she had stated in hospital she may pay for it privately. OA in hips, knees: L Hip/knee pain controlled with [place] 5/325 PRN, she usually uses it 2x/week. Can also use Tylenol but no NSAIDs due to anticoagulation medication. Rash on back: It improved while she was in hospital and is much faded. Patient reports it didn't itch while she was in hospital, but is starting up again since coming home. She is using the cream they used in the hospital. I had ordered Nystatin cream since it appeared to be fungal. If it worsens now that she is back home, it might be allergic or contact dermatitis. She does have her cat "Macaroni" in bed with her continually. She also sweats in her bed. Tobacco use disorder: Patient "quit" in hospital, daughter reports she has restarted - 1 cigarette today. She is considering nicotine patches or Chantrix. Caregiver reports she has the patches already, is not starting them if the patient continues to smoke. Advanced care planning: POLST is full code. Time Spent: 55 minutes were spent with more than 50% of the time spent on counseling, education, and coordination of care.
== END 2018-04-06 14:01 | disposition home or self-care (01) ==
LOC: PC 14:00
PROVIDERS: ATTEND Nurse Practitioner
DX: Z51.5 Encounter for palliative care (principal); N39.0 Urinary tract infection, site not specified; I48.91 Unspecified atrial fibrillation; G35 Multiple sclerosis; J44.9 Chronic obstructive pulmonary disease, unspecified; M16.12 Unilateral primary osteoarthritis, left hip; M17.0 Bilateral primary osteoarthritis of knee; R21 Rash and other nonspecific skin eruption; Z74.01 Bed confinement status; Z96.0 Presence of urogenital implants; Z87.440 Personal history of urinary (tract) infections; Z91.19 Patient's noncompliance with other medical treatment and regimen; Z72.0 Tobacco use; Z79.891 Long term (current) use of opiate analgesic; Z96.641 Presence of right artificial hip joint
CPT/HCPCS: 99349

== ENCOUNTER 2018-04-19 17:07 | Outpatient (CLI) | payer MEDICARE, OTHER ==
--- NOTE | 2018-04-19 17:12 | CONSULTATION NOTE ---
Palliative Care Follow Up - Referral Referring Provider: Dr Mcintosh Time of Visit: 04/19/2018. 9:05 - 10:40 Referral setting: Home (Patient is seen in home setting due to taxing and considerable effort required to leave the home due to being bedridden secondary to advancing chronic-progressive type of multiple sclerosis.) Referral Reason: Leaking suprapubic catheter - Information Sources Records reviewed: Previous records reviewed History/Review of Systems obtained from: Patient, Family, Caregiver Exam limitations: No limitations - History of Present Illness Update Brief HPI Update: 72 year old woman originally from [place], has indwelling suprapubic catheter and is totally bedbound x 3 years due to advancing chronic/progressive type multiple sclerosis. She was hospitalized 03/30/18 - 04/05/18 for UTI and atrial fibrillation and possible COPD exacerbation. Medical history: CHF (EF 25-30% (echo 03/30/18), atrial fibrillation, chronic, progressive multiple sclerosis; depression; h/o small bowel obstruction in Apr 2017; R hip replacement; frozen L knee from OA, unable to extend; PVD/venous insufficiency; chronic cystitis; suprapubic catheter; h/o pressure wound on trunk; insomnia; tobacco use disorder; R hip replaced; chronic pain L hip, chronic contracture knee of LLE. -Patient was hospitalized 03/30/18 - 04/06/18 for sepsis, UTI with klebsiella, COPD exacerbation, new diagnosis of atrial fibrillation with rapid ventricular response, new diagnosis of systolic congestive heart failure (EF 25-30%), neurogenic bladder from multiple sclerosis, mild protein calorie malnutrition. -She has a new diagnosis of atrial fibrillation. Several meds were tried in hospital (metoprolol and Cardizem) before amiodarone, bringing heart rate down to 80s-90s. She was DC'd on amiodarone and continues to take it. -She was supposed to have been DC'd on Eliquis for anticoagulation, but this med wasn't at the pharmacy, so I've started it today. -The caregiver Ning called asking for help due to patient's catheter leaking. -I have tried to refer patient to Home Health services, however all three agencies who supply Home Health services on the [place] have declined to service the patient. -The patient has previously had home health services with [facility] at various times, and was non-compliant with recommendations. Per report from referring source, patient continues to live in an environment that does not allow for appropriate home health care, so [facility] will not provide services to this patient. -I spoke with both [facility] and [facility] and they also declined due to patient's past history. [facility] had received a referral from [facility], but were unable to contact the patient, who would pick up attendant the mill supervisor then hang up, because she did not recognize the number. -The patient today vociferously states she does not need nursing for catheter management. She has been changing her catheter herself for a long-time. -She did become upset with yelling and stating that nurses "come on their high horses" and "they are all ego driven, and I can't stand that." -Ning caregiver requested repeatedly to that patient would she please agree to have the nursing come to show her catheter care at least once. The patient continued to refuse, although she eventually relented. -I did explain to them that the three home health agencies declined, so Home Health is not available to her. -Patient has a history of non-compliance with medications and with follow up visits with physicians. -But both patient and Ning report that patient is currently taking medications as prescribed. She finished the antibiotics she was given at the hospital. And she has been taking the "heart" medication. -I provided education and discussion that the suprapubic catheter must be changed a minimum of once a month. Patient and Ning both agreed to this plan going forward. Ning plans to do it on the first of each month, starting in May. -Patient was discharged on amiodarone to control heart rate. I have extended the script, but she was supposed to follow up with her PCP or bath attendant, and has not and will not due to being bed bound. -I will contact her PCP about alternatives for amiodarone. Social History - Living Situation Living arrangement: At home Living Situation: Alone Support System: She is in a precarious and vulnerable situation. [place]. Private caregiver Ning comes every morning 7 days a week, to help with house, personal hygiene, medications, errands, shopping. She states she doesn't have friends and doesn't know her neighbors. She has a male helper who helps around the house, and apparently also lifts her into the shower. Her daughter Nevaeh Mann, lives in [place]. They speak by phone several times a day. Nevaeh tries to help her as much as possible, and as much as the patient allows her to. The patient has been from her for many years. She states she has signed papers giving her daughter POA authority, but doesn't know where the papers are. The daughter is planning to visit in May, starting 05/15 for one week. Medications/Allergies - Medications Home Medications: Ambulatory Orders Medication Instructions Recorded Confirmed Hydrocodone/Acetaminophen 1 tab PO Q4H PRN 04/14/17 04/20/18 [Hydrocodone-Acetamin 5-325 mg] Venlafaxine [Effexor] 75 mg PO BID 03/30/18 04/20/18 Amiodarone [Pacerone] 200 mg PO DAILY #30 tablet 04/05/18 04/20/18 Apixaban [Eliquis] 5 mg PO BID #60 tablet 04/05/18 04/20/18 Nystatin Cream [Mycostatin Cream] 1 ea TOP BID PRN MDD until resolved 04/20/18 04/20/18 - Allergies Allergies/Adverse Reactions: Allergies Allergy/AdvReac Type Severity Reaction Status Date / Time No Known Drug Allergies Allergy Verified 03/30/18 11:44 Review of Systems - Constitutional Constitutional: reports: Weight stable. denies: Fever, Poor appetite, Night sweats - Ears, Nose & Throat Ears, Nose & Throat: reports: Hearing loss - Cardiovascular Cardiovascular: denies: Edema - Genitourinary Genitourinary: reports: Other (suprapubic catheter) - Musculoskeletal Musculoskeletal: reports: Joint pain (L knee, chronic contractures), Assistive devices (wheelchair), Other (bedbound) - Integumentary Integumentary: reports: Rash (much improved with Nystatin) - Neurological Neurological: reports: General weakness (secondary to MS), Other (multiple sclerosis) - Other Findings Other Findings: Focused ROS Physical Exam - Vital Signs Temperature: 95.8 F Pulse Rate: 76 O2 Saturation: 97 (room air) Blood Pressure: 133/73 - Physical Exam General Appearance: positive: No acute distress, Alert Eyes Bilateral: positive: No lid inflammation, Conjunctivae nml, No scleral icterus ENT: positive: No signs of dehydration Neck: positive: Trachea midline Cardiovascular: positive: Regular rate & rhythm, No murmur Respiratory: positive: Chest non-tender, No respiratory distress, Diminished throughout Abdomen: positive: Soft, Other (catheter opening clean, no signs/symptoms of infection) Extremities: positive: No pedal edema, Joint swelling, Other (contractures of hips, knees) Palliative Care - POLST Patient has POLST: Yes POLST Status: Full Code Constipation: No - Palliative Care Discussion: -Spoke with daughter, Nevaeh, regarding Home Health services not being available to the patient, andm my concern about the patient's self-neglec and that she is in an unsafe situation. With Ning's help, she is receiving much better care than she has in the past, but speaking with Ning separately from the patient, it is not certain that she will continue with this job. -Ning currently works there in the mornings 7 days a week, and is successful at getting the patient to take her medications. She provides appropriate personal care and manages her hygiene well. -The patient is dependent on Ning and Ning's reliability, and if she quits, she would be quite vulnerable. -The daughter has tried to help her mother in the past, with medical issues and taking medications, following up with specialists, but has been rebuffed and even rejected many times. -She has learned that the patient will do or not do what she wants, and is very heads ania. -I spoke to the daughter regarding notifying APS, which she reports this has been done many times in the past, but there is not a lot they can do because the patient has medical decision making capacity. -And today, patient was insistent, and became quite worked up, yelling at [place] that she does not need nursing monitoring of her catheter, that a certain amount of leakage is normal. -We discussed what they would want from palliative care, and I offered to come twice monthly. They agreed that only once a month palliative care visits are sufficient. -I reviewed with Ning that the patient is full code, and if there is change in patient's condition, respiratory distress, fever, change of consciousness that she should call 911. -Ning and the patient also agreed to the plan that Ning will change the catheter tubing and bag at least once a month, on the first of the month. Ning will also take a urine sample to the clinic after placing a new catheter. -Daughter Nevaeh plans to come visit in May, starting the , but she is never sure how her mother will react. In the past the patient has treated her poorly and told her to leave, go home. Impression and Recommendations - Palliative Care Impression: 72 year old woman originally from [place], bedbound from advancing MS, with suprapubic catheter, was hospitalized earlier this month for COPD exacerbation, new atrial fibrillation, new CHF and UTI. She has a long history of medical noncompliance and as a results, all three available home health agencies will not serve her. She has a history of self neglect, and currently has a reliable private caregiver, but remains vulnerable and dependent and in a overall vul nerable and unsafe situation. Pallative care can follow up and monitor twice monthly; patient and Ning requested just once a month visits. Recommendations/Counseling Done: UTI/suprapubic catheter: Completed ciprofloxacin regimen. No Home Health Nursing Service will work with this patient due to her past history of non- compliance and an environment that does not allow for appropriate home health care. The patient reports that she has changed her own catheter for years. She and the caregiver agreed change her catheter at least monthly, on the first of each month. Atrial fibrillation: New diagnosis. Hospital started amiodarone 200mg PO daily for rate control. She did not follow up with PCP or bath attendant as recommended by hospitalist due to taxing and considerable effort to get transported. I will consult with PCP about alternative medications to amiodarone, since her heart rate has settled down (76 today) The hospital had tried metroprolol and cardizem without success. She was also to have started on apixaban 5mg PO BID for anticoagulation, but the order didn't get through to the pharmacy. I ordered it today, and also wrote a refill script for amiodarone. CHF: A new diagnosis. She ot on any diuretics, on amiodarone for rate control. EF is 25-30%. Monitor for edema, weight gain, SOA. She does pursed lip breathing, and has talked about getting supplemental oxygen. Chronic, progressive MS: At baseline, she is bedbound. A/P mattress overlay order is in progress. SOA: Patient often does "pursed lip" breathing, has done it for years. O2 sats are 97%. OA in hips, knees: L Hip/knee pain at baseline. She uses [place] a few times a week. and also has Tylenol. Rash on back: Improved with Nystatin cream. Wrote a refill script. Tobacco use disorder: Patient continues to smoke. Advanced care planning: POLST is full code. Patient has a history of self- neglect, medical noncompliance and is in a vulnerable, potentially unsafe situation, bedbound in an isolated area with very little social support. She depends heavily on the reliability of her private pay caregiver, Ning. Her daughter also is in frequent contact by phone with her and offers what help and support she can. Palliative care can provide limited support and visits twice monthly; the patient requests just once monthly Time Spent: 95 minutes were spent with more than 50% of the time spent on counseling, education, anticipatory guidance, and coordination of care.
== END 2018-04-19 17:08 | disposition home or self-care (01) ==
LOC: PC 17:07
PROVIDERS: ATTEND Nurse Practitioner
DX: Z51.5 Encounter for palliative care (principal); Z96.0 Presence of urogenital implants; I48.91 Unspecified atrial fibrillation; I50.20 Unspecified systolic (congestive) heart failure; M16.12 Unilateral primary osteoarthritis, left hip; M17.0 Bilateral primary osteoarthritis of knee; R21 Rash and other nonspecific skin eruption; G35 Multiple sclerosis; N31.8 Other neuromuscular dysfunction of bladder; J44.9 Chronic obstructive pulmonary disease, unspecified; E44.1 Mild protein-calorie malnutrition; Z79.899 Other long term (current) drug therapy; Z91.19 Patient's noncompliance with other medical treatment and regimen; Z96.641 Presence of right artificial hip joint; Z74.01 Bed confinement status; Z87.440 Personal history of urinary (tract) infections; Z91.14 Patient's other noncompliance with medication regimen; Z60.2 Problems related to living alone; Z79.891 Long term (current) use of opiate analgesic; Z72.0 Tobacco use
CPT/HCPCS: 99350

== ENCOUNTER 2018-07-11 09:20 | Outpatient (CLI) | payer MEDICARE, OTHER ==
--- NOTE | 2018-07-11 17:16 | CONSULTATION NOTE ---
Palliative Care Follow Up - Referral Referring Provider: Dr Mcintosh Time of Visit: 07/11/2018. 9:20 - 10:15 Referral setting: Home (Seen in home setting due to taxing and considerable effort required to leave the home due to being bedridden secondary to multiple comorbidities, including advancing chronic-progressive type of multiple sclerosis.) Referral Reason: Chronic SOA - Information Sources Records reviewed: Previous records reviewed History/Review of Systems obtained from: Patient, Caregiver Exam limitations: No limitations - History of Present Illness Update Brief HPI Update: 73-year-old woman originally from [place], has indwelling suprapubic catheter and is totally bedbound x 3 years due to advancing chronic/progressive type multiple sclerosis. Her most recent hospitalization was April 2018 for UTI and COPD, with new diagnosis of Afib and CHF. She has a very dependable caregiver, but continues to live in a precarious situation due to her bedbound status, multiple comorbidities and isolated living situation. None of the three home health nursing agencies that serve [facility] will accept her as a client due to her history of noncompliance and consistently refusing nursing service. Medical history: CHF (EF 25-30% (echo 03/30/18), atrial fibrillation, chronic, progressive multiple sclerosis; COPD (current smoker); depression; h/o small bowel obstruction in Apr 2017; R hip replacement; frozen L knee from OA, unable to extend; PVD/venous insufficiency; chronic cystitis; suprapubic catheter; h/o pressure wound on trunk; insomnia; tobacco use disorder; R hip replaced; chronic pain L hip, chronic contracture knee of LLE. Patient and caregiver report that patient has been stable, without change in condition since the previous palliative care visit. She denies feeling short of breath, and reports not using the nebulizer very frequently. I do point out that she is practicing pursed lip breathing, and expiratory wheezing is audible via auscultation. Plus her BP is more elevated in June (a few in the 160s, 170s) vs May, which may be related to increased to increased SOA. I recommend that she start using the nebulizer again daily, and she appears to agree to this plan but compliance is never a given with this patient. Ning the caregiver was present when I was explaining this and is usually reliable about follow through. Patient reports using the albuterol HFA inhaler only a few times a week. The patient asked me about [employer], which is the company that supplies her nebulizer. She has been getting phone calls from them, but has been hanging up, and finally blocked their number. I gave the number to Ning to return their calls and find out what they were calling about. The Palliative Care RN will also follow up. The patient reports she has been doing well. Ning reports she's been doing well too. She has circles around her eyes, but reports it's from rubbing. I will order patanol ophthalmic drops for allergies. I worked with Ning a good while to ascertain what scripts they needed to have refilled. Both of them report no new concerns or issues, except for a red, dry, itchy patch in the L occiptal area of the scalp. Ning reports that she has hired a second caregiver for showering the patient so now she will be getting 2 showers per week, plus help with changing bed linens, etc. She changes the catheter monthly and is keeping records of the changes: 04/20, 05/20, 06/20. Patient has no pressure ulcers on bilateral feet, and both feet protected with thick socks, plus bootie on one foot. I did not assess patient's perineal area due to difficulty of moving the patient. Ning monitors her skin, reports skin is looking good, no skin breakdown, no pressure areas or wounds. Patient reports pain is well controlled, she uses [place] only a few times per week. She does report increased depression and moodiness and would like to increase the venlafaxine prescription. When I suggest that being isolated and bedbound could be contributing to the mood disorder, she replies it's hard to know if it's in her brain or in the situation. Social History - Living Situation Living arrangement: At home Living Situation: Alone, With caregiver(s) Support System: Her living situation is precarious and vulnerable. [place] She has no contact with her neighbors and no friends. She has a private caregiver, Ning, every morning 7 days a week, to help with house, personal hygiene, medications, errands, shopping. She is totally dependent on Ning for everything. Ning manages things well and is reliable, and they seem to have a good relationship. The patient has alienated caregivers in the past, but Ning seems to be a good match for her. Jefferysheyray reports that she has hired another caregiver for helping give the patient showers. Her daughter Nevaeh Mann, lives in [place] and they speak by phone several times a day. Nevaeh has been planning to come up and visit for several months now, but the plans have fallen through. The most recent reason was the patient became angry at Nevaeh for suggesting that she should be using her wheelchair. Nevaeh is waiting for the patient to call her back. The patient has been from her for many years. Nevaeh has POA authority as reported by the patient, but doesn't know where the papers are. It is unclear if Nevaeh has them, or is waiting for her mother to sign them. Medications/Allergies - Medications Home Medications: Ambulatory Orders Medication Instructions Recorded Confirmed Hydrocodone/Acetaminophen 1 tab PO Q4H PRN 04/14/17 07/11/18 [Hydrocodone-Acetamin 5-325 mg] Venlafaxine [Effexor] 150 mg PO BID 03/30/18 07/11/18 Apixaban [Eliquis] 5 mg PO BID #60 tablet 04/05/18 07/11/18 Nystatin Cream [Mycostatin Cream] 1 ea TOP BID PRN MDD until resolved 04/20/18 07/11/18 Albuterol Sulfate [Proair Hfa 2 puffs PO Q6H PRN 06/01/18 07/11/18 Inhaler] Metoprolol Succinate 25 mg PO DAILY 06/01/18 07/11/18 Ketoconazole 1 ea TP .2X/WEEK MDD for 8 weeks, 07/11/18 07/11/18 then PRN Olopatadine HCl [Patanol] 1 drops EACHEYE BID PRN 07/11/18 07/11/18 - Allergies Allergies/Adverse Reactions: Allergies Allergy/AdvReac Type Severity Reaction Status Date / Time No Known Drug Allergies Allergy Verified 03/30/18 11:44 Review of Systems - Constitutional Constitutional: reports: Weakness, Weight stable. denies: Fatigue, Fever, Poor appetite - Ears, Nose & Throat Ears, Nose & Throat: reports: Hearing loss - Cardiovascular Cardiovascular: denies: Chest pain, Edema, Lightheadedness - Respiratory Respiratory: reports: Cough, Wheezing, SOB at rest - Gastrointestinal Gastrointestinal: denies: Constipation, Diarrhea, Change in bowel habits, Nausea, Vomiting - Genitourinary Genitourinary: reports: Other (suprapubic catheter) - Musculoskeletal Musculoskeletal: reports: Limited range of motion (lower extremities are perman ently contracted), Muscle weakness (bedbound), Gout, Joint pain, Transfer issues (bedbound) - Integumentary Integumentary: reports: Pruritis (scalp) - Neurological Neurological: reports: Pre-existing deficit (multiple sclerosis) - Psychiatric Psychiatric: reports: Depression - Hematologic/Lymphatic Hematologic/Lymphatic: reports: Recurrent infections (UTIs) - Other Findings Other Findings: Limited ROS. Physical Exam - Vital Signs Temperature: 96.6 F Pulse Rate: 89 O2 Saturation: 94 (room air) Blood Pressure: 135/68 - Physical Exam General Appearance: positive: No acute distress, Alert, Other (appears kaelyn in the face, shadows under the eyes. Patient says it is due to her rubbing her eyes constantly) Eyes Bilateral: positive: No lid inflammation, No scleral icterus, Other (R medical conjuntivae mildly injected; no exudate) ENT: positive: No signs of dehydration Neck: positive: Trachea midline Cardiovascular: positive: Regular rate & rhythm Respiratory: positive: Chest non-tender, No respiratory distress, Diminished throughout, Wheezes (expiratory). negative: Rales, Rhonchi Skin: positive: No symptoms Extremities: positive: No pedal edema, Other (severe contractures bilat lower extremities) Palliative Care - POLST Patient has POLST: Yes POLST Status: Full Code Pain: Pain unchanged Depression: Moderate (4-6) (requests increase in venlafaxine dosage) Dyspnea: Mild (1-3) Performance Status: bedbound no longer uses wheelchair severe lower extremity contractures of hips and knees - Palliative Care Discussion: -Ning is very dependable and successfully manages medications and provides keiry ropriate personal care and manages her hygiene well. But the patient is quite dependent, and as such, is extremely vulnerable and at risk due to her bedbound status, multiple comorbidities and isolated living situation. Also she can't qualify for home health nursing, should she ever agree to it, [place] history of noncompliance and refusing nursing service. Patient's daughter is usually in contact with her daily, but the patient is temperamental and is angry with her daughter be cause the daughter told her she should be using the wheelchair. The daughter has not flown out to visit her mother since palliative care started working with the patient. The plans have been continually postponed for one reason or another. Patient remains full code, and if there is change in patient's condition or respiratory distress, fever, change of consciousness, Ning is to call 911. Problematic is that Ning works only in the mornings. Palliative care will continue to provide support and monitoring, with visits monthly or every month and a half. For this visit, the series of (unanswered) phone calls to schedule a visit sta rted 06/29/18, then 07/06/17, and finally connected 07/11/17. Spoke to daughter Nevaeh after today's visit to update her on the patient's status, including increasing the antidepressant dosage. She was thankful for the update, had no questions or concerns. Impression and Recommendations - Palliative Care Impression: 73-year-old woman with indwelling suprapubic catheter and totally bedbound x 3 years due to advancing chronic/progressive type multiple sclerosis. Her most recent hospitalization was April 2018 for UTI and COPD, with new diagnosis of Afib and CHF. She has a very dependable caregiver, but continues to live in a precarious situation due to her bedbound status, multiple comorbidities and isolated living situation. None of the three home health nursing agencies that serve [facility] will accept her as a client due to her history of noncompliance and consistently refusing nursing service. Palliative Care will continue to provide monitoring monthly. Recommendations/Counseling Done: UTI/suprapubic catheter: Stable, no recent infections. Caregiver changes catheter monthly: 04/20 and 05/20, 06/20. Atrial fibrillation: Stable, continue metoprolol succinate 25 mg daily for rate control and Apixaban for anticoagulation. Patient's BP has been more elevated in June with some sporadic SBPs in 160s, 170s, could be related to SOA. SOA secondary to COPD: O2 sats are 94%, but she has increased expiratory wheezing, and often SOA. Recommended she start using her nebulizer daily since she has been using it only a few times a week. Continue ProAir (albuterol) HFA as needed for wheezing. She has rejected phone calls from [facility], the provider of her nebulizer, and even blocked their number. Ning is following up with [facility], as well as Palliative Care ENGINE SETTER Depression: Increase venlafaxine: Currently 75mg BID Increase to 150 mg PO QAM and 75 mg PO QPM x 7 days Then increase to 150mg PO BID ongoing. Monitor for mood, behavior changes. Chronic, progressive MS: Stable, with slow decline. Lower extremities are severely contracted. Pain control with [place] as needed. Allergic rhinitis: Itchy eyes. Start Patanol (olopatadine ophthalm solution 0.1%. 1 drop in each eye BID PRN Seborrheic dermatitis of scalp: Statt ketoconazole topical shampoo 2%, aply shampoo 2s/week for 8 weeks, then as needed. CHF: Stable at present, no weight gain or edema. Advanced care planning: POLST is full code. Patient has a history of self-neglect, but is able to remain living independently in her isolated home due to her reliable, caregiver who is with her every morning. The patient remains vulnerable, particularly if her condition deteriorates when the caregiver is not present. Follow up in August or early August. Scripts done today: start Patanol; start Ketoconazole 2% shampoo; titrate venlafaxine up to 150mg BID; refill Albuterol sulf/Proair HFA inhaler, refill Eliquis 5mg. Time Spent: 55 minutes were spent with more than 50% of the time spent on counseling, education, and coordination of care.
== END 2018-07-11 09:21 | disposition home or self-care (01) ==
LOC: PC 09:20
PROVIDERS: ATTEND Nurse Practitioner
DX: Z51.5 Encounter for palliative care (principal); I48.2 Chronic atrial fibrillation; J44.9 Chronic obstructive pulmonary disease, unspecified; F32.9 Major depressive disorder, single episode, unspecified; G35 Multiple sclerosis; J30.9 Allergic rhinitis, unspecified; L21.9 Seborrheic dermatitis, unspecified; I50.9 Heart failure, unspecified; F17.200 Nicotine dependence, unspecified, uncomplicated; Z91.19 Patient's noncompliance with other medical treatment and regimen; Z79.899 Other long term (current) drug therapy; Z79.891 Long term (current) use of opiate analgesic; Z74.01 Bed confinement status; Z93.50 Unspecified cystostomy status; Z87.440 Personal history of urinary (tract) infections; Z79.01 Long term (current) use of anticoagulants; Z60.2 Problems related to living alone
CPT/HCPCS: 99349

== ENCOUNTER 2018-10-03 10:35 | Outpatient (CLI) | payer MEDICARE, OTHER ==
--- NOTE | 2018-10-03 18:19 | CONSULTATION NOTE ---
Palliative Care Follow Up - Referral Referring Provider: Dr Mcintosh Time of Visit: Mon10/03/2018. 10:35 - 11:20 Referral setting: Home Referral Reason: Tachycardia - Information Sources Records reviewed: Previous records reviewed History/Review of Systems obtained from: Patient, Caregiver Exam limitations: No limitations - History of Present Illness Update Brief HPI Update: 73-year-old woman originally from [place], has indwelling suprapubic catheter and is totally bedbound x 3 years due to advancing chronic/progressive type multiple sclerosis. Her last hospitalization was April 2018 for UTI and COPD, with new diagnosis of Afib and CHF. She lives alone in a precarious situation due to her bedbound status, multiple comorbidities and isolated living situation. She does have a very reliable daily caregiver, Ning. Due to her history of noncompliance and consistently refusing nursing service, none of the three home health nursing agencies that serve [facility] will accept her as a client. Medical history: CHF (EF 25-30% (echo 03/30/18), atrial fibrillation, chronic, progressive multiple sclerosis; COPD (current smoker); depression; h/o small bowel obstruction in Apr 2017; R hip replacement; frozen L knee from OA, unable to extend; PVD/venous insufficiency; chronic cystitis; suprapubic catheter; h/o pressure wound on trunk; insomnia; tobacco use disorder; R hip replaced; chronic pain L hip, chronic contracture knee of LLE. Patient has not had a COPD exacerbation or any UTIs in the past several months. Ning has been calling the Palliative Care RN regularly for advice and with questions. Ning reported that patient recently has had increased HR over 100 and r equested an assessment. She keeps very good vital signs records, which show a few recent days of increased HR over 100 (103, 100, 99, 101) which coincided with a mild fever: two days at 99. Ning reports she gave the patient Tylenol for the fever and it resolved. Today's vitals signs that Ning took and I took are in the normal range. Patient denies any chills, malaise, pain, fever, SOA, feeling ill. She is lucid, articulate, alert. She does have tremors of bilateral upper extremities. She reports when she takes extra antidepressant, it improves. There was some uncertainty how much dosage she was taking recently. It should be venlafaxine 150mg BID, but the caregiver said she put 150mg tablets in the pill bottle labeled 75mg tablets. We confirmed that the correct dosage is 150mg BID; they just need to clarify the dosage strength of their tablets. She plans to go to the pharmacy later today, show the tablets and clarify whether they were 150 or 75mg. Jefferyyoandy confirms she changes the suprapubic catheter monthly, and the ostomy hasn't been red or infected. She also now has Renacidin 30ml QID prn for flushing catheter and maintaining the suprapubic catheter ostomy. Skin assessment (back, neck, under breasts, ostomy; perineal area; buttocks; feet) is negative; no issues of concern. Social History - Living Situation Living arrangement: At home Living Situation: Alone, With caregiver(s) Support System: Her living situation is precarious and vulnerable. [place] She has no contact with her neighbors and no friends. She has a private caregiver, Ning, every morning 7 days a week, to help with house, personal hygiene, medications, errands, shopping. She is totally dependent on Ning for everything. Ning manages things well and is reliable, and they seem to have a good relationship. The patient has alienated caregivers in the past, but Ning seems to be a good match for her. Ning reports that she has hired another caregiver for helping give the patient showers. Her daughter Nevaeh Mann, , lives in [place] and they speak by phone several times a day. Patient's estranged , with whom she was friends, unexpectedly last month. Patient is upset, particularly on behalf of her daughter. Nevaeh may come up to visit the patient at a later date, after she settles the affairs of her father. Also Nevaeh has a fractured leg. Medications/Allergies - Medications Home Medications: Ambulatory Orders Medication Instructions Recorded Confirmed Hydrocodone/Acetaminophen 1 tab PO Q4H PRN 04/14/17 10/03/18 [Hydrocodone-Acetamin 5-325 mg] Venlafaxine [Effexor] 150 mg PO BID 03/30/18 10/03/18 Nystatin Cream [Mycostatin Cream] 1 ea TOP BID PRN MDD until resolved 04/20/18 10/03/18 Albuterol Sulfate [Proair Hfa 2 puffs PO Q6H PRN 06/01/18 10/03/18 Inhaler] Metoprolol Succinate 25 mg PO DAILY 06/01/18 10/03/18 Olopatadine HCl [Patanol] 1 drops EACHEYE BID PRN 07/11/18 10/03/18 Aspirin 325 mg PO DAILY 10/03/18 10/03/18 Calcium Carbonate/Vitamin D3 1 ea PO DAILY 10/03/18 10/03/18 [Calcium 600-Vit D3 800 Caplet] Clopidogrel [Plavix] 75 mg PO DAILY 10/03/18 10/03/18 Ipratropium/Albuterol [Duoneb] 3 ml PO QID PRN 10/03/18 10/03/18 Multivitamin [Daily Multiple 1 ea PO DAILY 10/03/18 10/03/18 Vitamin] Omeprazole 20 mg PO DAILY 10/03/18 10/03/18 - Allergies Allergies/Adverse Reactions: Allergies Allergy/AdvReac Type Severity Reaction Status Date / Time No Known Drug Allergies Allergy Verified 03/30/18 11:44 Review of Systems - Constitutional Constitutional: reports: Weakness, Weight stable. denies: Fatigue, Fever, Poor appetite - Ears, Nose & Throat Ears, Nose & Throat: reports: Hearing loss - Cardiovascular Cardiovascular: denies: Chest pain, Edema, Lightheadedness, Exertional dyspnea - Respiratory Respiratory: denies: Cough, SOB at rest - Gastrointestinal Gastrointestinal: denies: Constipation - Genitourinary Genitourinary: reports: Other (suprapubic catheter; changed monthly, maintained with Renacidin 30mL) - Musculoskeletal Musculoskeletal: reports: Stiffness, Limited range of motion (severe contractures of LEs), Other (bedbound, doesn't get up in her wheelchair) - Neurological Neurological: reports: Pre-existing deficit (multiple sclerosis) - Psychiatric Psychiatric: reports: Depression - Hematologic/Lymphatic Hematologic/Lymphatic: reports: Recurrent infections (UTIs) - Other Findings Other Findings: Limited ROS Physical Exam - Vital Signs Temperature: 96.9 F Pulse Rate: 99 O2 Saturation: 95 (room air) Blood Pressure: 111/62 (wrist cuff) - Physical Exam General Appearance: positive: No acute distress, Alert Eyes Bilateral: positive: Normal inspection ENT: positive: No signs of dehydration Neck: positive: Trachea midline Cardiovascular: positive: Regular rate & rhythm, No murmur, No gallop Respiratory: positive: Chest non-tender, No respiratory distress, Diminished in bases, Wheezes, Rhonchi. negative: Rales Abdomen: positive: Non-tender, Soft, Other (ostomy clean, no s/s infection) Skin: positive: No symptoms, Pallor, Other (No pressure wounds on buttocks or feet). negative: Dryness, Bruising, Pressure wound Extremities: positive: No pedal edema, Other (servere LE contractures) Neurologic/Psychiatric: positive: Oriented x3, Mood/affect nml Palliative Care - POLST Patient has POLST: Yes POLST Status: Full Code Dyspnea: None Anorexia: None Performance Status: bedbound not using wheelchair severe lower extremity contracture of hips and knees - Palliative Care Discussion: Patient depends entirely on Ning her caregiver. Patient's daughter lives in [place], is in frequent telephone contact but has not visited. Patient's , from whom she's been for many years, in August 2017. The service is on hold. Patient is upset and sad; they were on good terms. Offered presecne and empathetic listening. She is especially sad for her daughter, Nevaeh, who is taking it hard. Doreen has a broken leg. She plans to visit the patient after it is healed. Impression and Recommendations - Palliative Care Impression: 73-year-old woman with indwelling suprapubic catheter and totally bedbound x 3 years due to advancing chronic/progressive-type multiple sclerosis. She lives in a precarious situation due to her bedbound status, multiple comorbidities and isolated living situation, dependent entirely on Ning, her caregiver, who is very reliable. She had a recent mild tachycardia and low fever (99) for a few days; today VSs are in normal range. Palliative Care will continue to provide support and oversight. Recommendations/Counseling Done: h/o UTIs with suprapubic catheter: Stable, no recent infections. Catheter is changed monthly by caregiver Ning. Continue Renacidin 30mL kup to 4x daily as needed for catheter flushing and maintenance. Patient had mild fever and mild tachycardia for the past few days, appears well today, and her vital signs today are in normal range. Her catheter ostomy is likely colonized. Antibiotics are not currently indicated. Caregiver will continue to monitor and will notify Palliative Care RN if condition changes. Atrial fibrillation: Stable. Metoprolol succinate 25 mg daily for rate control. DC'd apixaban due to cost. Was started on aspirin 325mg daily and clopidogral 75mg daily for anticoagulation. COPD: SOA improved. No recent exacerbations. She still does not use the nebulizer daily, despite my recommendation. Wrote a new script for DuoNeb ampules. Has ProAir (albuterol) HFA as needed for wheezing. Depression: Stable. Venlafaxine was increased to 150mg BID. It's unclear if they've been dosing correctly because caregiver said she had 150mg tablets which she put into the pill container labeled 75mg. Ning will take it to pharmacy to confirm which dosage their tablets are. Patient was occasionally taking a tablet in the middle of the day (so TID). Chronic, progressive MS: Stable, with slow decline. Lower extremities are severely contracted. Pain control with [place] as needed. No pressure wounds on feet Allergic rhinitis: Resolved. Seborrheic dermatitis of scalp: Resolved. CHF: Stable at present, no weight gain or edema. Advanced care planning: POLST remains full code. Patient remains vulnerable due to precarious health, bedbound status and isolated living situation. She is completely dependent on her caregiver who is there daily. The caregiver is reliable and is there every morning. Caregiver will notify Palliative Care RN for any change in condition. Follow up monthly. Time Spent: 45 minutes were spent with more than 50% of the time spent on counseling, education, and coordination of care.
== END 2018-10-03 10:36 | disposition home or self-care (01) ==
LOC: PC 10:35
PROVIDERS: ATTEND Nurse Practitioner
DX: Z51.5 Encounter for palliative care (principal); G35 Multiple sclerosis; I48.91 Unspecified atrial fibrillation; J44.9 Chronic obstructive pulmonary disease, unspecified; F32.9 Major depressive disorder, single episode, unspecified; I50.9 Heart failure, unspecified; F17.200 Nicotine dependence, unspecified, uncomplicated; Z74.01 Bed confinement status; Z87.440 Personal history of urinary (tract) infections; Z79.899 Other long term (current) drug therapy; Z93.6 Other artificial openings of urinary tract status; Z60.2 Problems related to living alone; Z63.4 Disappearance and death of family member; Z79.82 Long term (current) use of aspirin; Z79.02 Long term (current) use of antithrombotics/antiplatelets; Z91.14 Patient's other noncompliance with medication regimen
CPT/HCPCS: 99349

== ENCOUNTER 2018-10-30 12:05 | Outpatient (CLI) | payer MEDICARE, OTHER ==
--- NOTE | 2018-10-30 20:33 | CONSULTATION NOTE ---
Palliative Care Follow Up - Referral Referring Provider: Dr Mcintosh Time of Visit: Allan 10/30/2018. 12:05 - 12:45 Referral setting: Home Referral Reason: Kidney pain - Information Sources Records reviewed: Previous records reviewed History/Review of Systems obtained from: Patient, Caregiver Exam limitations: No limitations - History of Present Illness Update Brief HPI Update: 73-year-old woman originally from [place], has indwelling suprapubic catheter and is totally bedbound x 3 years due to advancing chronic/progressive type multiple sclerosis. Her last hospitalization was March 2018 for UTI and COPD, with new diagnosis of Afib and CHF. She lives alone in a precarious situation due to her bedbound status, multiple comorbidities and isolated living situation. Her daily caregiver, Ning is very reliable and diligently handles her care and personal matters. None of the three home health nursing agencies that serve [facility] will accept her as a client due to long history of non-compliance. Medical history: CHF (EF 25-30% (echo 03/30/18), atrial fibrillation, chronic, progressive multiple sclerosis; COPD (current smoker); depression; h/o small bowel obstruction in Apr 2017; R hip replacement; frozen L knee from OA, unable to extend; PVD/venous insufficiency; chronic cystitis; suprapubic catheter; h/o pressure wound on trunk; insomnia; tobacco use disorder; R hip replaced; chronic pain L hip, chronic contracture knee of [place]. Patient had a kidney stone in the past, and noticed a "sensation" recently in her kidney area. She pointed vaguely to her suprapubic area, but denied pain in the suprapubic catheter site. She also denied pain, it was just not feeling right. Tested her, and she has no CVA tenderness. When asked how she views her quality of life, she says she is used to her situation of being bedbound. She expresses interest in seeing an orthopedic surgeon about replacement of L hip and L knee, both of which are significantly contracted. Her goal is to regain mobility and ambulation. She has not been out of her bed in months. Ning plans to ask Dr Mcintosh's office for a referral to the orthopedic surgeon. Dr Berry Hinojosa in [facility] replaced her R hip, which she is very satisfied with. I faxed Dr Mcintosh with a request for a referral. Patient denies pain; she uses [place] sporadically as a "treat" a few times a week; she feels like "hugging the sun." Refills of [place] and Proair were dropped off/faxed to [facility] yesterday. She practices pursed lip breathing; expiratory rhonchi audible via auscultation. Patient uses nebulizer once a day, sometimes twice. Patient is in good mood today. She has no other concerns. Ning, caregiver, has no concerns or complaints; catheter is draining well; she changes it monthly. Social History - Living Situation Living arrangement: At home Living Situation: Alone, With caregiver(s) Support System: Her living situation is precarious and vulnerable. [place] She has no contact with her neighbors and no friends. She has a private caregiver, Ning, every morning 7 days a week, to help with house, personal hygiene, medications, errands, shopping. She is totally dependent on Ning for everything. Ning manages things well and is reliable, and they have a good relationship. The patient has alienated caregivers in the past, but Ning seems to be a good match for her. Her daughter Nevaeh Mann, , lives in [place] and they speak by phone several times a day. Patient's estranged , with whom she was friends, unexpectedly in August 2018. Patient was upset initially, she appears calm, with appropriate grief. Medications/Allergies - Medications Home Medications: Ambulatory Orders Medication Instructions Recorded Confirmed Hydrocodone/Acetaminophen 1 tab PO Q4H PRN 04/14/17 10/30/18 [Hydrocodone-Acetamin 5-325 mg] Venlafaxine [Effexor] 150 mg PO BID 03/30/18 10/30/18 Nystatin Cream [Mycostatin Cream] 1 ea TOP BID PRN MDD until resolved 04/20/18 10/30/18 Albuterol Sulfate [Proair Hfa 2 puffs PO Q6H PRN 06/01/18 10/30/18 Inhaler] Metoprolol Succinate 25 mg PO DAILY 06/01/18 10/30/18 Olopatadine HCl [Patanol] 1 drops EACHEYE BID PRN 07/11/18 10/30/18 Aspirin 325 mg PO DAILY 10/03/18 10/30/18 Calcium Carbonate/Vitamin D3 1 ea PO DAILY 10/03/18 10/30/18 [Calcium 600-Vit D3 800 Caplet] Clopidogrel [Plavix] 75 mg PO DAILY 10/03/18 10/30/18 Ipratropium/Albuterol [Duoneb] 3 ml PO QID PRN 10/03/18 10/30/18 Multivitamin [Daily Multiple 1 ea PO DAILY 10/03/18 10/30/18 Vitamin] Omeprazole 20 mg PO DAILY 10/03/18 10/30/18 - Allergies Allergies/Adverse Reactions: Allergies Allergy/AdvReac Type Severity Reaction Status Date / Time No Known Drug Allergies Allergy Verified 03/30/18 11:44 Review of Systems - Constitutional Constitutional: reports: Weakness, Other (No recent weight information; by appearance, she is gaining abdominal weight) - Ears, Nose & Throat Ears, Nose & Throat: reports: Hearing loss. denies: Hearing aids - Cardiovascular Cardiovascular: reports: Exertional dyspnea, Decr. exercise tolerance. denies: Palpitations, Chest pain, Edema, Lightheadedness - Respiratory Respiratory: reports: SOB with exertion. denies: Cough, SOB at rest - Gastrointestinal Gastrointestinal: reports: Good appetite. denies: Constipation, Change in bowel habits - Genitourinary Genitourinary: reports: Other (suprapubic catheter). denies: Dysuria - Musculoskeletal Musculoskeletal: reports: Limited range of motion (severe contracture LE, especially LLE knee and hip), Joint pain (LLE contractures), Assistive devices (bedbound; has wheelchair), Transfer issues - Neurological Neurological: reports: General weakness, Pre-existing deficit (multiple sclerosis) - Psychiatric Psychiatric: reports: Depression - Hematologic/Lymphatic Hematologic/Lymphatic: reports: Blood clots (On aspirin and Plavix), Recurrent infections (UTIs) Physical Exam - Vital Signs Temperature: 96.2 F Pulse Rate: 102 O2 Saturation: 93 (room air) Blood Pressure: 112/68 - Physical Exam General Appearance: positive: No acute distress, Alert Eyes Bilateral: positive: EOMI, No lid inflammation, Conjunctivae nml, No scleral icterus ENT: positive: No signs of dehydration Neck: positive: Trachea midline Cardiovascular: positive: No gallop, Tachycardia Respiratory: positive: Chest non-tender, No respiratory distress, Diminished in bases, Rhonchi (on expiration). negative: Wheezes Abdomen: positive: Non-tender, Soft, Nml bowel sounds Skin: positive: No symptoms, Other (clear blister R hip, from catheter tube rubbing. CG'r has moved tubing to pt's left side) Extremities: positive: No pedal edema. negative: Full ROM (contractures of LLE) Neurologic/Psychiatric: positive: Oriented x3, Mood/affect nml Palliative Care - POLST Patient has POLST: Yes POLST Status: Full Code Pain: Comment (Some "sensation" in kidney/suprapubic but denies pain. Has h/o kidney stone) Tiredness/Fatigue: Mild (1-3) Drowsiness/Sedation: None Depression: Mild (1-3) Anxiety: None Dyspnea: Mild (1-3) Anorexia: None Constipation: No Performance Status: bedbound, dependent on private pay caregiver doesn't use wheelchair severe lowe extremity contracture of L hip and L knee - Palliative Care Discussion: When discussing her perceived quality of life, in the past she has said she felt she had a good life and a "lot of things to live for." Today she expressed s urprise that she had said that at one time. She says she is used to and accepts her situation (being in bed). But she also said she would like to explore whether a L hip and L knee replacement is possible, and if so, could she learn to walk and be mobile again. Her R hip was replaced by Dr Hinojosa and she is very satisfied with that result. Her caregiver, Ning, is encouraging her to move forward with getting a referral. Ning will stop by Dr Mcintosh's office to try to get a referral. I will also contact him about it. Patient has agreed to medical procedures and services in the past, only to ultimately refuse them, or not pear picker the phone when they rang to set up appointments. Impression and Recommendations - Palliative Care Impression: 73-year-old woman with indwelling suprapubic catheter, totally bedbound x 3 years due to advancing chronic/progressive-type multiple sclerosis. She has h/o kidney stones, had recent kidney discomfort but no other symptoms, no CVA tenderness. She expresses interest in consulting with an orthopedic surgeon regarding L hip and L knee replacement, due to severe contractures. Palliative Care requested orthopedic referral from PCP. Palliative Care will continue to provide support and monthly oversight of patient. Recommendations/Counseling Done: h/o UTIs with suprapubic catheter: Stable, no recent infections. Monthly catheter changes by caregiver Ning. Uses Renacidin 30mL up to 4x daily PRN for catheter flushing/maintenance. Caregiver monitors closely, notifies Palliative Care RN of condition changes. Atrial fibrillation: Stable; is often tachycardic (today 103). On Metoprolol succinate for rate control, aspirin 325mg and clopidogral for anticoagulation. COPD: At baseline SOA. She consistently uses pursed air breathing. Rhonci audible on auscultation. Counselled her to increase nebulizer usage to 4x/day for a week as a trial. Currently it's maybe 1-2x/day. Wrote a refill script for ProAir (albuterol) HFA as needed for wheezing. Depression: Stable. Venlafaxine 150mg BID. Chronic, progressive MS: Left lower extremities severely contracted. Patient expresses interest in speaking with orthopedic surgeon regarding L hip, and possible L knee replacement; she wants to regain mobility. Faxed a request for orthopedic referral to Dr Mcintosh. Pain control with [place] 5/325 as needed, she uses it a few times a week; just turned in a refill script. Consulted [facility] site; no concerning opioid activity. CHF: Stable at present, no weight gain or edema. Advance care planning: POLST full code. Palliative Care follows up monthly. Time Spent: 40 minutes were spent with more than 50% of the time spent on counseling, edu cation, and coordination of care with PCP.
== END 2018-10-30 12:06 | disposition home or self-care (01) ==
LOC: PC 12:05
PROVIDERS: ATTEND Nurse Practitioner
DX: Z51.5 Encounter for palliative care (principal); Z93.50 Unspecified cystostomy status; G35 Multiple sclerosis; J44.9 Chronic obstructive pulmonary disease, unspecified; I48.2 Chronic atrial fibrillation; F32.9 Major depressive disorder, single episode, unspecified; M19.90 Unspecified osteoarthritis, unspecified site; I73.9 Peripheral vascular disease, unspecified; G47.00 Insomnia, unspecified; F17.200 Nicotine dependence, unspecified, uncomplicated; G89.29 Other chronic pain; M25.552 Pain in left hip; M24.562 Contracture, left knee; M24.552 Contracture, left hip; Z79.51 Long term (current) use of inhaled steroids; Z74.01 Bed confinement status; Z96.641 Presence of right artificial hip joint; Z79.891 Long term (current) use of opiate analgesic; Z79.82 Long term (current) use of aspirin; Z79.02 Long term (current) use of antithrombotics/antiplatelets; H91.90 Unspecified hearing loss, unspecified ear; Z86.718 Personal history of other venous thrombosis and embolism; Z87.440 Personal history of urinary (tract) infections
CPT/HCPCS: 99349

== ENCOUNTER 2019-01-10 16:26 | Outpatient (CLI) | payer MEDICARE, OTHER ==
--- NOTE | 2019-01-10 18:39 | CONSULTATION NOTE ---
Palliative Care Follow Up - Referral Referring Provider: Dr Mcintosh Time of Visit: 01/10/2019. 10:05 - 10:55 Referral setting: Home Referral Reason: Pressure wound L foot - Information Sources Records reviewed: Previous records reviewed History/Review of Systems obtained from: Patient, Caregiver Exam limitations: No limitations - History of Present Illness Update Brief HPI Update: [id number] for Home Health RN for Wound Care This patient is bedbound secondary to MS and has severe lower extremity contractures. She has developed a Stage III pressure wound on the left lateral foot, below the malleolus. The open area of the wound is approximately 1.5 cm x 2cm, with redness and maceration extending about 4.5cm, with cellulitis. She also has a small open wound on left 1st toe, and a smaller resolving wound on left 2nd toe. She has a resolving wound on R hip. Because this patient is homebound, Palliative Care [facility] recommends Home Health RN for wound assessment and management. ----- -------- 73-year-old woman originally from [facility], has indwelling suprapubic catheter and is totally bedbound x 4 years due to advancing chronic/progressive type multiple sclerosis. Her last hospitalization was March 2018 for UTI and COPD, with new diagnosis of Afib and CHF. She lives alone in a precarious situa tion due to her bedbound status, multiple comorbidities and isolated living situation. Her daily caregiver, Ning is very reliable and diligently handles her care and personal matters. None of the three home health nursing agencies that serve [facility] will accept her as a client due to long history of non-compliance. Medical history: CHF (EF 25-30% (echo 03/30/18), atrial fibrillation, chronic, progressive multiple sclerosis; COPD (current smoker); depression; h/o small bowel obstruction in Apr 2017; R hip replacement; frozen L knee from OA, unable to extend; PVD/venous insufficiency; chronic cystitis; suprapubic catheter; h/o pressure wound on trunk; insomnia; tobacco use disorder; R hip replaced; chronic pain L hip, chronic contracture knee of LLE. Ning paid cg'r reports open wound on left ankle. At assessment, there is stage 3 pressure with mild cellulitis (see above). Caregiver says this started out as a very small wound one to two months ago and has recently worsened so she contacted Palliative Care. Home Health PT was working with the patient until 02 January and reported no pressure wounds. Patient and caregiver otherwise report that patient has been very stable with no concerns or issues. She just had her suprapubic catheter changed just prior to this visit. Urine in the bag is dark with blood. Discussed with caregiver, she confirms that the hematuria is very recent, likely from the catheter change. Discussed with patient to increase her fluid intake, especially water, and to monitor the urine output. Patient denies pain, foul odor of catheter site. There is no s/s of infection around the site. At last palliative care visit, patient had been considering following up with orthopedics about a L knee replacement. She had a consultation 11/27/[address] Christina Maurice, orthopedic surgeon in [place]. Patient reports that she was told she is not a candidate for replacement of L knee due to deterioration of ligaments and support structures. Orthopedic surgeon referred patient to Home Health PT, which she was on for one month (December 03 - January 02), discharged after limited progress. Patient's goal was to use her motorized scooter to be more mobile. Patient denies SOA. She is not doing the pursed lip breathing as she was at the previous palliative care visit. Patient smokes daily. Patient has increased tremors in upper limbs, denies that it interferes with functionality, reports it comes and goes. Social History - Living Situation Living arrangement: At home Living Situation: Alone, With caregiver(s) Support System: Her living situation is precarious and vulnerable. [place] She has no contact with her neighbors and no friends. She has a private caregiver, Ning, in the mornings 7 days a week, to help with house, personal hygiene, medications, errands, shopping. She is heavily dependent on Ning for running things. Ning manages things well and is reliable, and they have a good relationship. The patient has alienated caregivers in the past, but Ning is a good match for her. Her daughter, Nevaeh Mann, , lives in [place] and they speak by phone several times a day. Doreen and the patient's son, Shad, are planning to visit the patient next week. Medications/Allergies - Medications Home Medications: Ambulatory Orders Medication Instructions Recorded Confirmed Hydrocodone/Acetaminophen 1 tab PO Q4H PRN 04/14/17 01/10/19 [Hydrocodone-Acetamin 5-325 mg] Venlafaxine [Effexor] 150 mg PO BID 03/30/18 01/10/19 Nystatin Cream [Mycostatin Cream] 1 ea TOP BID PRN MDD until resolved 04/20/18 01/10/19 Albuterol Sulfate [Proair Hfa 2 puffs PO Q6H PRN 06/01/18 01/10/19 Inhaler] Metoprolol Succinate 25 mg PO DAILY 06/01/18 01/10/19 Olopatadine HCl [Patanol] 1 drops EACHEYE BID PRN 07/11/18 01/10/19 Aspirin 325 mg PO DAILY 10/03/18 01/10/19 Clopidogrel [Plavix] 75 mg PO DAILY 10/03/18 01/10/19 Ipratropium/Albuterol [Duoneb] 3 ml PO QID PRN 10/03/18 01/10/19 Omeprazole 20 mg PO DAILY 10/03/18 01/10/19 - Allergies Allergies/Adverse Reactions: Allergies Allergy/AdvReac Type Severity Reaction Status Date / Time No Known Drug Allergies Allergy Verified 03/30/18 11:44 Review of Systems - Constitutional Constitutional: reports: Weight stable. denies: Fatigue, Fever, Chills, Poor appetite - Ears, Nose & Throat Ears, Nose & Throat: reports: Hearing loss. denies: Hearing aids, Nasal congestion - Cardiovascular Cardiovascular: reports: Other (doesn't exert, so doesn't have exertional dyspnea. smokes daily.). denies: Chest pain - Respiratory Respiratory: denies: Cough, Wheezing, SOB at rest (occasional. uses albuterol less than 1x/week) - Gastrointestinal Gastrointestinal: denies: Constipation - Genitourinary Genitourinary: reports: Hematuria (acute. likely due to catheter just being changed), Other (suprapubic catheter. caregiver changes it at least monthly. changed it 2 weeks ago and again today) - Musculoskeletal Musculoskeletal: reports: Stiffness, Limited range of motion (contractures, lower extremities), Muscle weakness (deconditioning due to MS and bedbound status), Transfer issues, Other (bedbound) - Integumentary Integumentary: reports: Other (wounds on L foot and hip, see Face to Face summary above). denies: Rash - Neurological Neurological: reports: General weakness, Pre-existing deficit (chronic, progressive-type multiple sclerosis) - Psychiatric Psychiatric: denies: Depression (denies today), Suicidal Physical Exam - Vital Signs Temperature: 96.5 F Pulse Rate: 109 O2 Saturation: 99 (room air) Blood Pressure: 102/81 (wrist cuff) - Physical Exam General Appearance: positive: No acute distress, Alert Eyes Bilateral: positive: Normal inspection Neck: positive: Trachea midline Cardiovascular: positive: Regular rate & rhythm, No murmur, No gallop Respiratory: positive: Chest non-tender, No respiratory distress, Diminished in bases, Wheezes (mild expiratory wheeze). negative: Rales, Rhonchi Abdomen: positive: Non-tender, Soft Skin: positive: Pressure wound (see Face to Face on 1st page) Extremities: positive: No pedal edema. negative: Full ROM (severe contractures of L hip and knees) Neurologic/Psychiatric: positive: Oriented x3, Mood/affect nml Palliative Care - POLST Patient has POLST: Yes POLST Status: Full Code Pain: No pain, Comment (denies pain. Uses [place] infrequently, and when she does, it's for the L hip/lower extremity) Depression: None (denies) Dyspnea: None (denies) Constipation: No Performance Status: Bedbound Discharged from PT last week due to limited progress Not a candidate for L knee replacement - Palliative Care Discussion: Patient today denies depression. She does have acceptance of her situation and physical condition. She has a new, very tiny and cute jeffy puppy and it's obvious this gives her enormous pleasure. She is an animal lover and [place], peacocks (including a baby susan), two cats and the new puppy. There is also a planned visit of her two children: Nevaeh and Shad. This is supposed to take place next week. The visit of Nevaeh has been talked about and planned for as long at Palliative Care has been providing support for the patient (since Mar 2018). Ning says she will contact [employer] when they are here, to possibly arrange a visit/meeting. Impression and Recommendations - Palliative Care Impression: 73-year-old woman with indwelling suprapubic catheter, bedbound x 4 years due to advancing chronic/progressive-type multiple sclerosis. She has Stage III pressure ulcer on L lateral ankle. Palliative Care is recommending referral to Home Health RN for wound care management. Palliative Care will continue to provide support and oversight of patient. Recommendations/Counseling Done: Stage III pressure wound, L ankle: Recommend HH RN for wound care (see Face to Face, page 1). Start Bactrim DS, 1 tab PO BID x 3 days (#6) for cellulitis. Caregiver has been using Duoderm, which is macerating the wound. Until HH RN can start, counselled caregiver to instead use sterile gauze pads size 4x4 and paper taper. Apply 4 gauze pads at a time. Patient also has small wounds on L 1st and 2nd toes, and resolving wound on R hip. h/o UTIs with suprapubic catheter: Stable, no recent infections. Monthly catheter changes by caregiver Beccaray, and more often as needed. Uses Renacidin 30mL up to 4x daily PRN for catheter flushing/maintenance. Changed catheter just prior to this visit: blood in urine. Counselled to closely monitor and notify [facility] [employer] if no improvement. Increase fluid intake, particularly water. Atrial fibrillation: Stable; baseline is tachycardic (today 109). Continue metoprolol for rate control, aspirin and clopidogral for anticoagulation. COPD: SOA has improved. Pt is not using pursed air breathing as she has at the last visit. O2 sats 99% today. Doesn't use her nebulizer. Reports using ProAir (albuterol) HFA less than 1x/week. Depression: Stable, denies depression or low mood. Continue Venlafaxine 150mg BID. Chronic, progressive MS: Left lower extremities severely contracted. Patient DC's last week from PT, limited progress. Recent consultation with orthopedic surgeon result is that she is not a candidate for knee replacement. Pain control with [place] 5/325 as needed, she uses it a few times a week. Advance care planning: POLST full code. Time Spent: 50 minutes were spent with more than 50% of the time spent on counseling, education, and medicine reconciliation.
== END 2019-01-10 16:27 | disposition home or self-care (01) ==
LOC: PC 16:26
PROVIDERS: ATTEND Nurse Practitioner
DX: Z51.5 Encounter for palliative care (principal); L89.523 Pressure ulcer of left ankle, stage 3; L03.116 Cellulitis of left lower limb; S91.102A Unspecified open wound of left great toe without damage to nail, initial encounter; R31.0 Gross hematuria; I48.91 Unspecified atrial fibrillation; J44.9 Chronic obstructive pulmonary disease, unspecified; F32.9 Major depressive disorder, single episode, unspecified; G35 Multiple sclerosis; F17.200 Nicotine dependence, unspecified, uncomplicated; Z96.0 Presence of urogenital implants; Z74.01 Bed confinement status; Z79.01 Long term (current) use of anticoagulants
CPT/HCPCS: 99349

== ENCOUNTER 2019-01-17 12:25 | Outpatient (CLI) | payer MEDICARE, OTHER ==
--- NOTE | 2019-01-17 15:49 | CONSULTATION NOTE ---
Palliative Care Follow Up - Referral Referring Provider: Dr Mcintosh Time of Visit: Noemi 01/17/2019. 12:25 - 13:10 Referral setting: Home Referral Reason: Cellulitis follow up - Information Sources Records reviewed: RN notes reviewed History/Review of Systems obtained from: Patient, Family Exam limitations: No limitations - History of Present Illness Update Brief HPI Update: 73-year-old woman originally from [place], has indwelling suprapubic catheter and is totally bedbound x 4 years due to advancing chronic/progressive type multiple sclerosis. Her last hospitalization was March 2018 for UTI and COPD, with new diagnosis of Afib and CHF. She lives alone in a precarious situation due to her bedbound status, multiple comorbidities and isolated living situation. Her daily caregiver, Ning is reliable and diligently handles patient's care and personal matters. Medical history: CHF (EF 25-30% (echo 03/30/18), atrial fibrillation, chronic, progressive multiple sclerosis; COPD (current smoker); depression; h/o small bowel obstruction in Apr 2017; R hip replacement; frozen L knee from OA, unable to extend; PVD/venous insufficiency; chronic cystitis; suprapubic catheter; h/o pressure wound on trunk; insomnia; tobacco use disorder; R hip replaced; chronic pain L hip, chronic contracture knee of LLE. Patient developed a Stage III pressure wound on lateral L ankle, with cellulitis. Bactrim DS x 3 days has completed. Home Health RN has started wound care, initial visit was yesterday. The wound has already improved from the 01/10/19 visit. Patient reports feeling well, denies SOA, pain. Patient's children, Nevaeh and Shad are visiting for a few days from [place]. They will fly back to [place] this evening. Social History - Living Situation Living arrangement: At home Living Situation: Alone, With caregiver(s) Support System: Her living situation is precarious and vulnerable. [place] She has no contact with her neighbors and no friends. She has a private caregiver, Ning, in the mornings 7 days a week, to help with house, personal hygiene, medications, errands, shopping. She is heavily dependent on Beccaa for running things. Beccaa manages things well and is reliable, and they have a good relationship. The patient has alienated caregivers in the past, but the Wevina seems well matched for the patient. Her daughter, Nevaeh Mann, , lives in [place] and they speak by phone several times a day. Doreen and the patient's son, Shad, are currently visiting the patient. Medications/Allergies - Medications Home Medications: Ambulatory Orders Medication Instructions Recorded Confirmed Hydrocodone/Acetaminophen 1 tab PO Q4H PRN 04/14/17 01/10/19 [Hydrocodone-Acetamin 5-325 mg] Venlafaxine [Effexor] 150 mg PO BID 03/30/18 01/10/19 Nystatin Cream [Mycostatin Cream] 1 ea TOP BID PRN MDD until resolved 04/20/18 01/10/19 Albuterol Sulfate [Proair Hfa 2 puffs PO Q6H PRN 06/01/18 01/10/19 Inhaler] Metoprolol Succinate 25 mg PO DAILY 06/01/18 01/10/19 Olopatadine HCl [Patanol] 1 drops EACHEYE BID PRN 07/11/18 01/10/19 Aspirin 325 mg PO DAILY 10/03/18 01/10/19 Clopidogrel [Plavix] 75 mg PO DAILY 10/03/18 01/10/19 Ipratropium/Albuterol [Duoneb] 3 ml PO QID PRN 10/03/18 01/10/19 Omeprazole 20 mg PO DAILY 10/03/18 01/10/19 - Allergies Allergies/Adverse Reactions: Allergies Allergy/AdvReac Type Severity Reaction Status Date / Time No Known Drug Allergies Allergy Verified 03/30/18 11:44 Review of Systems - Constitutional Constitutional: reports: Weight stable. denies: Fatigue, Fever, Chills, Poor appetite - Ears, Nose & Throat Ears, Nose & Throat: reports: Hearing loss. denies: Hearing aids - Cardiovascular Cardiovascular: denies: Exertional dyspnea (doesn't exert, so doesn't have exertional dyspnea) - Respiratory Respiratory: reports: SOB at rest, Other (smokes daily). denies: Cough, SOB with exertion - Gastrointestinal Gastrointestinal: reports: Good appetite - Genitourinary Genitourinary: reports: Other (indwelling suprapubic catheter) - Musculoskeletal Musculoskeletal: reports: Stiffness, Limited range of motion (contractures, LLE), Joint pain (in L hip), Transfer issues (bedbound), Other (wanted to get in motorized chair, so recently had HH PT, but didn't do the transfers) - Neurological Neurological: reports: Other (chronic, progressive-type multiple sclerosis; upper extremity tremors) - Psychiatric Psychiatric: denies: Depression Physical Exam - Vital Signs Temperature: 96.4 F Pulse Rate: 67 O2 Saturation: 98 (room air) Blood Pressure: 133/77 (wrist cuff) - Physical Exam General Appearance: positive: No acute distress, Alert Eyes Bilateral: positive: Normal inspection ENT: positive: No signs of dehydration Neck: positive: Trachea midline Cardiovascular: positive: Regular rate & rhythm, No murmur, No gallop Respiratory: positive: Chest non-tender, No respiratory distress, Diminished throughout, Wheezes. negative: Rales, Rhonchi Abdomen: positive: Non-tender, Soft Skin: positive: Dryness (on face) Extremities: positive: No pedal edema, Other (muscle wasting; severe contractures particularly LLE; protective booties bilat feet). negative: Full ROM Neurologic/Psychiatric: positive: Oriented x3, Mood/affect nml Palliative Care - POLST Patient has POLST: Yes POLST Status: Full Code Pain: Pain unchanged Tiredness/Fatigue: None Drowsiness/Sedation: None Nausea: None Depression: None Anxiety: None Dyspnea: None Anorexia: None Constipation: No Performance Status: Bedbound Not a candidate for L knee/L hip replacement Dependent for ADLs due to bedbound status Daughter EUFEMIA manages finances Caregiver manages household, medications and personal care - Palliative Care Discussion: Yeimy Herring is patient's medical and financial DPOA. She is also an state attorney. She requested the palliative care provider fill out a form for VA benefits for the patient, which was done at this visit. The caregiver has proposed moving in with the patient to provide 24 hour care. Caregiver's boyfriend would also move in an provide help around the property. Then the caregiver would rent out her own home. It appears patient is at least partially supportive of this plan, both for having care provided and so she is not alone. Nevaeh is reticent, doesn't think it is a pfeiffer move and could open them up to future difficulties and conflicts. The patient does have a level of decisional capacity, but also has cognitive defects and [id number] dementia, so is vulnerable and completely dependent on Wevina at this time. Palliative Care provider agrees this could be the case. Complicating it is that both of the patient's children live in [place] and it is very challenging to oversee and manage the patient's affairs from a distance. They would like the patient to move closer to them, But she doesn't want to. She doesn't want to leave her animals (donkeys, peacocks, cats, a puppy) and her land. Patient may go ahead and have the caregiver and her boyfriend move into the house. Nevaeh does not support this, neither does her brother, but they may not be able to prevent it. The patient often decides what she wants to do and does it, whether they agree or not. Nevaeh has had her hands full recently, with a knee operation, and her father passing away. Her father apparently did not have his affairs in order and she has been handling that in addition to her mother's business. Impression and Recommendations - Palliative Care Impression: 73-year-old woman with indwelling suprapubic catheter, bedbound x 4 years due to advancing chronic/progressive-type multiple sclerosis. HH RN started wound care yesterday for the patient's stage III pressure ulcer on L lateral ankle. Cellulitis around the wound improved after short antibiotic course. Palliative Care will continue to provide support and oversight of patient. Recommendations/Counseling Done: Stage III pressure wound, L ankle: Cellulitis has improved after Bactrim DS BID x 3 days, completed. EMMIE RN initiated wound care yesterday. Advance care planning: EUFEMIA Herring requested provider fill out VA benefits form. Also long discussion about patient and caregiver's proposal for caregiver and her partner to move in with patient. Neither Nevaeh or Shad (son) agree with this plan, feeling it opens them up to too many possible problems and complications in the future. Unfortunately they live in [place] and are not able to closely monitor the situation. Patient may go ahead with this move despite her children not supporting it. Palliative care will provide support and monitoring as needed. Time Spent: 50 minutes were spent with more than 50% of the time spent on counseling and coordination of care filling out the VA benefits application.
== END 2019-01-17 12:26 | disposition home or self-care (01) ==
LOC: PC 12:25
PROVIDERS: ATTEND Nurse Practitioner
DX: Z51.5 Encounter for palliative care (principal); L89.523 Pressure ulcer of left ankle, stage 3; G35 Multiple sclerosis; I50.9 Heart failure, unspecified; I48.91 Unspecified atrial fibrillation; J44.9 Chronic obstructive pulmonary disease, unspecified; F17.200 Nicotine dependence, unspecified, uncomplicated; F03.90 Unspecified dementia, unspecified severity, without behavioral disturbance, psychotic disturbance, mood disturbance, and anxiety; Z74.01 Bed confinement status; Z96.0 Presence of urogenital implants; Z60.2 Problems related to living alone
CPT/HCPCS: 99349

== ENCOUNTER 2019-01-24 | Outpatient (CLI) | payer MEDICARE, OTHER | END 2019-01-24 23:59 | disposition home or self-care (01) | DX: I10 Essential (primary) hypertension (principal); G35 Multiple sclerosis; L89.893 Pressure ulcer of other site, stage 3 | CPT/HCPCS: 36415; 80053; 80061; 83721 ==

== ENCOUNTER 2019-03-22 10:15 | Outpatient (CLI) | payer MEDICARE, OTHER ==
--- NOTE | 2019-03-24 13:42 | CONSULTATION NOTE ---
Palliative Care Follow Up - Referral Referring Provider: Dr. Fady Mcintosh Time of Visit: 10:15-11 Referral setting: Home Referral Reason: Advanced MS/peripheral neuropathy/L hip pain/Stage IV L ankle wound - Information Sources Records reviewed: RN notes reviewed, Previous records reviewed History/Review of Systems obtained from: Patient, Caregiver (Ning caregiver with several hours in AM; checks on frequently; oversees care and medications) Exam limitations: Clinical condition (patient withdrawn and quiet during visit) - History of Present Illness Update Brief HPI Update: This is a 73-year-old woman who is advanced MS, who is bedbound for 4 years, with now only occasionally up in electric wheelchair about once a week. She has a suprapubic catheter, Liz has been receiving care from home health for stage IV pressure wound on left lateral malleolus. They have had difficulty managing it, as patient continues to have difficulty being adherent to pressure relief measures. She has on a alternating pressure mattress, and they have been trying to have her wear her pressure relief boots. 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 Palliative care has been asked to evaluate patient's pain management. Patient has developed over time sharp shooting pains in her feet, she describes them as "burning and pinpricks". She has baseline pain in her left hip, from her DJD. She does have hydrocodone she uses maybe once or twice a week if that gets too bad. She also has severe insomnia, this is compounded by her pain, and currently has her days and nights mixed up. Patient answering questions appropriately, unable to evaluate her baseline cognitive status. Patient has a daily caregiver Ning, Who oversees her care and assist with judgment. She lives quite close and patient can call her for any needs when she is not there. She is scheduled from 8-12 daily. Patient has set up around her, microwave, any food and fluids, and thinks she would need throughout the day. Social History - Living Situation Living arrangement: At home Living Situation: Alone Support System: Patient's living situation is somewhat precarious. Her home is isolated, and her only contact is her private caregiver. She has been with her for a while, and they do seem to have a good relationship. Her daughter Nevaeh Ambrose [phone] lives in [place], he speak on the phone several times a day. She is due to come back in May. Currently she is seeing the home health RN twice a week for dressing changes and monitoring. Medications/Allergies - Medications Home Medications: Ambulatory Orders Medication Instructions Recorded Confirmed Hydrocodone/Acetaminophen 1 tab PO Q4H PRN 04/14/17 03/24/19 [Hydrocodone-Acetamin 5-325 mg] Venlafaxine [Effexor] 150 mg PO DAILY 03/30/18 03/24/19 Nystatin Cream [Mycostatin Cream] 1 ea TOP BID PRN MDD until resolved 04/20/18 03/24/19 Albuterol Sulfate [Proair Hfa 2 puffs PO Q6H PRN 06/01/18 03/24/19 Inhaler] Metoprolol Succinate 25 mg PO DAILY 06/01/18 03/24/19 Olopatadine HCl [Patanol] 1 drops EACHEYE BID PRN 07/11/18 03/24/19 Aspirin 325 mg PO DAILY 10/03/18 03/24/19 Clopidogrel [Plavix] 75 mg PO DAILY 10/03/18 03/24/19 Ipratropium/Albuterol [Duoneb] 3 ml PO QID PRN 10/03/18 03/24/19 Omeprazole 20 mg PO DAILY 10/03/18 03/24/19 Acetaminophen 1,000 mg PO BID 03/24/19 03/24/19 Gabapentin 100 mg PO ACHS MDD titrating up to 03/24/19 03/24/19 300 mg Senna [Senokot] 1 - 2 tab PO PRN PRN 03/24/19 03/24/19 - Allergies Allergies/Adverse Reactions: Allergies Allergy/AdvReac Type Severity Reaction Status Date / Time No Known Drug Allergies Allergy Verified 03/30/18 11:44 Review of Systems - Constitutional Constitutional: reports: Fatigue, Weight stable. denies: Fever, Chills - Respiratory Respiratory: reports: Other (smokes about 5 cigerettes / day). denies: Cough - Gastrointestinal Gastrointestinal: reports: Good appetite. denies: Constipation, Nausea - Genitourinary Genitourinary: reports: Other (suprapubic catheter; flushed daily with renacidin) - Musculoskeletal Musculoskeletal: reports: Muscle pain, Back pain, Muscle aches, Stiffness, Limited range of motion, Muscle weakness, Joint pain, Transfer issues (layne up to wheelchair about once a week) - Integumentary Integumentary: reports: Dryness, Other (stage IV decub left malleolus) - Neurological Neurological: reports: General weakness, Memory problems, Other (patient getting nights/days mixed up; sleeping on arrival because had gone to bed at 4 am) - Psychiatric Psychiatric: reports: Depression - Hematologic/Lymphatic Hematologic/Lymphatic: reports: Recurrent infections (most recently treated for cellulitis in December) - All Other Systems All Other Systems: reports: Other (limited ROS from patient) Physical Exam - Vital Signs Temperature: 98.2 C Pulse Rate: 94 Respiratory Rate: 18 Blood Pressure: 121/74 - Physical Exam General Appearance: positive: No acute distress, Lethargic (had been sleeping) Eyes Bilateral: positive: Normal inspection Neck: positive: Trachea midline Cardiovascular: positive: Regular rate & rhythm, Tachycardia Respiratory: positive: No respiratory distress, Diminished in bases Skin: positive: Pallor Extremities: positive: Other (dressing and heel protector boot on) Neurologic/Psychiatric: positive: Disoriented to time, Weakness, Depressed mood/affect, Flat affect Palliative Care - POLST Patient has POLST: Yes POLST Status: Full Code Pain: Pain worsening, Location (LE sharp shooting pains; pain at left ankle; pain in left hip baseline) Tiredness/Fatigue: Moderate (4-6) Drowsiness/Sedation: Moderate (4-6) (sleeping during day; up at night until 4 am;) Nausea: None Sleep: Sleeps poorly Constipation: No, Managed (using senna as needed; about 2 x a week) Feelings of wellbeing/Perceived Quality of Life: Poor, Worsening Performance Status: Patient mostly bedbound, occasionally up with a Layne lift. Patient able to feed herself, denies any trouble with choking. Her caregiver provides personal care, meal prep, shopping, and oversight of medications.Patient's functional status has declined fairly steadily over the last several years, and more acutely over this last year. - Palliative Care Discussion: This provider is new to the patient, patient has been described as quite feisty in the past. She is quite withdrawn and subdued. She did answer my questions, but on arrival she said "I am just waiting in the bed to ". Did not respond to questions to explore this further. Patient is Full Code and Full Treatment despite her presentation as frail and serious decline of her MS. Impression and Recommendations - Palliative Care Impression: This is a 73-year-old woman with advanced MS, mostly bedbound. She does have a stage IV pressure ulcer on her left lateral malleolus, challenging to treat given patient's difficulty with adhering to pressure relief measures. Patient is developed increasing neuropathic pain symptoms, she presents as quite frail, at at risk for further complications with her multiple co-morbidities and precar ious living situation. Patient is receiving increased support through home health RN twice a week, palliative care continue to monitor monthly. Recommendations/Counseling Done: 1. Peripheral neuropathy. Most likely etiology is multifactorial, including her MS and peripheral vascular disease. She does describe sharp shooting pains, will initiate gabapentin, discussed with caregiver regarding timing as she gives most of medications in the a.m. for compliance. Patient with poor sleep, related to the pain, and side effects may include sedation. She will make arrangements to give patient gabapentin in the evenings. Will titrate fairly rapidly at 100 mg x 3 days; 200 mg x 3 evenings; 300 mg and will evaluate response and continue titration. Will also add acetaminophen thousand milligrams twice daily for generalized discomfort and osteoarthritic pain. She does have the hydrocodone she uses for acute or uncontrolled pain, at this point is only using that once or twice a week. Communication with home health RN to monitor response and for side effects. Counseling provided to both caregiver and patient regarding expectations, as it does take time to build up to effective level. 2. Stage IV pressure wound left lateral ankle. Healing is challenged by difficulty with adhering to pressure relief. Does have a pressure relief boot on as well as pressure relief mattress. Patient does appear quite thin and somewhat cachectic, suspect nutritional status adding to the complexity. Will monitor through wound images from home health RN, treat as appropriate. 3. Advanced care planning. Patient currently being supported by her long-term caregiver, her daughter is coming again in May 03 visit. Patient getting increased monitoring through home health RN. Patient is new to this [facility], will continue to build rapport and explore goals of care as FULL CODE/FULL TREATMENT. Time Spent: 45 minutes with greater than 50% of this done in counseling regarding initiation of new pain medication, feeling of her poor for palliative care, and anticipatory guidance.
== END 2019-03-22 10:16 | disposition home or self-care (01) ==
LOC: PC 10:15
PROVIDERS: ATTEND Nurse Practitioner Adult Health
DX: Z51.5 Encounter for palliative care (principal); G35 Multiple sclerosis; Z74.01 Bed confinement status; Z96.0 Presence of urogenital implants; L89.524 Pressure ulcer of left ankle, stage 4; I50.9 Heart failure, unspecified; I48.91 Unspecified atrial fibrillation; J44.9 Chronic obstructive pulmonary disease, unspecified; Z72.0 Tobacco use; F32.9 Major depressive disorder, single episode, unspecified; M16.12 Unilateral primary osteoarthritis, left hip; Z79.891 Long term (current) use of opiate analgesic; G47.00 Insomnia, unspecified; G62.9 Polyneuropathy, unspecified; I73.9 Peripheral vascular disease, unspecified
CPT/HCPCS: 99349

== ENCOUNTER 2019-03-28 12:38 | Outpatient (CLI) | payer MEDICARE, OTHER | END 2019-03-28 23:59 | disposition home or self-care (01) | LOC: LAB.R 12:38 | PROVIDERS: ATTEND Family Medicine | DX: S91.302A Unspecified open wound, left foot, initial encounter (principal) | CPT/HCPCS: 87070; 87205 ==

== ENCOUNTER 2019-05-06 08:15 | Outpatient (CLI) | payer MEDICARE, OTHER ==
--- NOTE | 2019-05-06 15:34 | CONSULTATION NOTE ---
Palliative Care Follow Up - Referral Referring Provider: Dr. Fady Mcintosh Time of Visit: [id number] Referral setting: Home Referral Reason: MS/Multiple decubs/wounds - Information Sources Records reviewed: RN notes reviewed (home health records), Previous records reviewed History/Review of Systems obtained from: Patient, Caregiver (Ning primary CG most of history), Nursing (joint visit with HH RN) Exam limitations: Clinical condition (patient with STM issues/poor insight into seriousness of condition) - History of Present Illness Update Brief HPI Update: This is a 73-year-old woman with advanced MS, who has been mostly bedbound for 4 years, with occasional times up in electric wheelchair. She is quite eccentric, presents with very poor insight to her current condition, and to her limitations. She has a long-term suprapubic catheter, that leaks at the site, as well as bladder incontinence. She has been receiving since December care from home health for stage IV pressure ulcer on her left lateral malleolus, which had continued to worsen along with new skin breakdown secondary to patient's poor adherence for pressure relief. Patient now has pressure areas on her left lateral fourth toe, fifth left lateral toe, big toe right dorsal surface, ankle right medial,. Her most dramatic is her right heel, which is a DTI, covered by thick eschar, due to series of unfortunate events she just now received the Santyl for treatment 05/03. The right heel which has a thick eschar that wraps around the heel, is 9.5 cm length and 10 cm width, the Santyl has loosened the edges some, but still needs sharp debriding. Patient is doing better with pressure relief, they are padding her feet, turning her every 2 hours, they are putting back the appropriate alternating mattress, as well as hiring some help to turn her at night. The other area of concern is the left lateral ankle 1.9 x 1.3 cm that does have br ight red granulating tissue across the wound bed, but also can palpate at the 12:00 of the edge of the bone. It is quite thinned and concerned about healing. Patient did finish 10 days of Bactrim on 04/25, at this point in time none of her wounds appear with bright erythema, any foul drainage, and are improving overall per caregiver and home health RN. Patient continues with severe lower extremity pain, sharp shooting pain, she has been instructed to take 200 mg of gabapentin and 2 Tylenol at bedtime, she has not been consistently taking this. Counseling provided regarding need for consistent dosing for it to be effective. She does use hydrocodone for breakthrough pain, using about anywhere from 3-4 a day. Patient has had behavioral issues as far as keeping the dogs up on the bed dur ing dressing changes, resistant to compliance with wound care, pressure relief, but is now participating more. Her daughter was up last weekend, they did get a wheelchair van, this will allow hopefully for her to get to the wound care clinic. Patient has somewhat unrealistic expectations about her energy and tolerance to be able to be up. She is only at most been up once a week in the wheelchair, and is a maximum assist with any kind of bed mobility, she does have severe hip and knee and foot contractures. Patient does continue to smoke, she is been quite anxious to smoking more recently, her baseline is usually about 2 to 3 cigarettes a day. She does tend to run slightly tacky, she has not had any fever, she does have expiratory wheezes and intermittent shortness of breath for which she uses her inhaler. Patient has long-term MS, she does have some tremors upper and lower extremity. 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 Social History - Living Situation Living arrangement: At home Living Situation: Alone Support System: [place], with donkeys, peacocks, dogs, and cats for which her caregiver cares for her. She reports she just likes animals. Her daughter and son had been up, would like to move her closer to them, but feels like she would be too overwhelmed given her cognitive decline and just the enormity of the task she would want to go through all her stuff and moving. We did discuss in previous conversations, that it may end up in crisis that she will be needing to transition and be placed, at this point in time they are looking at increasing help and increasing shift to be able to better turn her and have back-up for Ning as well. Medications/Allergies - Medications Home Medications: Ambulatory Orders Medication Instructions Recorded Confirmed Hydrocodone/Acetaminophen 1 tab PO Q4H PRN 04/14/17 05/06/19 [Hydrocodone-Acetamin 5-325 mg] Venlafaxine [Effexor] 150 mg PO BID 03/30/18 05/06/19 Nystatin Cream [Mycostatin Cream] 1 ea TOP BID PRN MDD until resolved 04/20/18 05/06/19 Albuterol Sulfate [Proair Hfa 2 puffs PO Q4HR PRN 06/01/18 05/06/19 Inhaler] Metoprolol Succinate 25 mg PO DAILY 06/01/18 05/06/19 Olopatadine HCl [Patanol] 1 drops EACHEYE BID PRN 07/11/18 05/06/19 Aspirin 325 mg PO DAILY 10/03/18 05/06/19 Clopidogrel [Plavix] 75 mg PO DAILY 10/03/18 05/06/19 Ipratropium/Albuterol [Duoneb] 3 ml INH QID PRN 10/03/18 05/06/19 Omeprazole 20 mg PO DAILY 10/03/18 05/06/19 Acetaminophen 1,000 mg PO BID 03/24/19 05/06/19 Gabapentin 300 mg PO ACHS 03/24/19 05/06/19 Senna [Senokot] 1 - 2 tab PO PRN PRN 03/24/19 05/06/19 - Allergies Allergies/Adverse Reactions: Allergies Allergy/AdvReac Type Severity Reaction Status Date / Time No Known Drug Allergies Allergy Verified 03/30/18 11:44 Review of Systems - Constitutional Constitutional: reports: Fatigue, Weight stable. denies: Fever, Chills - Eyes Eyes: reports: Vision loss, Corrective lenses - Ears, Nose & Throat Ears, Nose & Throat: reports: Hearing loss, Postnasal drainage, Dry mouth - Cardiovascular Cardiovascular: reports: Irregular heart rate, Exertional dyspnea, Decr. exercise tolerance. denies: Palpitations, Chest pain, Edema - Respiratory Respiratory: reports: Cough, Wheezing, SOB with exertion. denies: SOB at rest - Gastrointestinal Gastrointestinal: reports: Good appetite. denies: Constipation, Nausea, Reflux/heartburn - Genitourinary Genitourinary: reports: Incontinence, Other (suprapubic catheter leaks) - Musculoskeletal Musculoskeletal: reports: Muscle aches, Stiffness, Limited range of motion, Muscle weakness, Transfer issues (up with usha to electric chair Patient would benefit from tilt in space for better positioning; patient without truncal stabililty) - Integumentary Integumentary: reports: Dryness, Other (multiple pressure wounds) - Neurological Neurological: reports: General weakness, Memory problems - Psychiatric Psychiatric: reports: Depression, Anxiety, Behavior disturbances (resistant to care at times) - Endocrine Endocrine: reports: Intolerance to cold - Hematologic/Lymphatic Hematologic/Lymphatic: reports: Recurrent infections (treated with Bactrim DS finished 04/26) - All Other Systems All Other Systems: reports: Other (limited ROS poor STM) Physical Exam - Vital Signs Temperature: 98.3 C Pulse Rate: 91 Respiratory Rate: 18 O2 Saturation: 91 (ra @ rest) Blood Pressure: 153/53 - Physical Exam General Appearance: positive: Mild distress Eyes Bilateral: positive: Normal inspection ENT: positive: No signs of dehydration Neck: positive: No JVD, Trachea midline Cardiovascular: positive: Irregularly irregular, Tachycardia Respiratory: positive: No respiratory distress, Diminished throughout, Wheezes Abdomen: positive: Soft, Nml bowel sounds, Tenderness, Other (suprapubic catheter with leaking) Skin: positive: Pallor, Dryness, Pressure wound (see HPI), Other (sacral wound resolved) Extremities: positive: Pedal edema (trace LE edema/contractures) Neurologic/Psychiatric: positive: Disoriented to time, Weakness, Depressed mood/affect, Flat affect Palliative Care - POLST Patient has POLST: Yes POLST Status: Full Code Pain: Pain worsening, Location (L hip/ LE sharp shooting pains) Tiredness/Fatigue: Severe (7-10) Drowsiness/Sedation: Mild (1-3) Nausea: None Depression: Mild (1-3) Anxiety: Mild (1-3) Dyspnea: Mild (1-3) Anorexia: Mild (1-3) Sleep: Sleeps poorly, Variable sleep pattern Constipation: Yes, Intermittent constipation Feelings of wellbeing/Perceived Quality of Life: Fair, Acceptable, Worsening Performance Status: Patient perceives that she is going to be up and around in her wheelchair and with more freedom with her van. Patient was too tired and fatigued to even do trial friend this weekend, she does have significant activity intolerance, has been mostly bedbound, and is quite frail. I suspect she has poor insight into her limitations, and will need to build up slowly. - Palliative Care Discussion: Patient is recently , over a year. She has not lived with her for many years, he lived in [place] near his daughter. They are dealing with his estate, and he was placed in [facility]. That is her plan as well, she seems somewhat distraught and distracted today, does not remember her daughter and son visiting this last weekend, she does remember they are coming to visit for her birthday. She has a very dry sense of humor, did spend significant amount of time discussing compliance with her treatment plan, she verbally agrees. Did not follow-up on advanced care planning as of yet, given unclear if patient presents yet with decision-making capacity. Her caregiver reports she does have fluctuating mental status, and she is a little more out of it today because she slept poorly and is just waking up. Will do a more formal evaluation at our next visit, and revisit the POLST which at this point in time is full code and full treatment, which is not congruent with her behaviors and choices she has made up to this point in time. Impression and Recommendations - Palliative Care Impression: This is a 73-year-old woman with advanced MS, essentially mostly homebound, with significant sequela of decub's bilaterally. Patient does need sharp debridement on her right heel, now has a means to be able to leave the home if she is able to tolerate transfers an extended period time up. She is working with PT for transfer training and follow-up on equipment needs, possible tilt in space. Will make a referral to the wound care clinic at [facility] per her request, for support, debridement, will continue with home health as long as patient remains homebound. Patient somewhat poor insight into her disease and activity intolerance. Palliative care to continue provide support for pain and symptom management. Recommendations/Counseling Done: 1. Acute on chronic pain. Patient does have hip pain with [id number] DJD, using hydrocodone/acetaminophen 5-325 mg 1 tab up to 4 times a day. New prescription provided. Patient also describes sharp shooting neuropathic pain in her feet, had originally had some improvement with 200 mg of gabapentin, did not stay sustained relief, will go ahead and add 300 mg at bedtime and evaluate in 2 weeks to continue to titrate up. Patient is also been instructed to use acetaminophen 100 mg twice daily. 2. DTI right heel. Patient with multiple areas of pressure, needing dressing changes. Right heel with significant eschar, with small response to the Santyl, does need sharp debriding, will make a referral to the [facility] wound clinic for support and intervention. Counseling and instruction reinforced regarding return of pressure relief mattress versus camping blowup mattress, use of Heelbo's when up in wheelchair, frequent turning at least every 2-3 hours including to the evening, will be starting with the evening caregiver tonight. Positive reinforcement given with improvement of wounds with compliance on pressure relief, counseling and review again with primary caregiver further reinforced by home health RN. 3. COPD. Patient continues to smoke, does have intermittent albuterol she uses 3-4 times a day with relief of wheezing. She does have productive moist cough, this fluctuates in nature. Patient with increased anxiety, driving increased cigarette use. Caregiver reports usually she is at 2-3 a day. 4. Mild cognitive impairment. Suspect patient has early dementia, patient with poor recall and short-term memory issues, as well as tries to cover with her sharp wit. Will do MMSE or further testing as patient allows at next visit, particularly in the context of decision-making capacity and concern for ongoing poor adherence to treatment plan. 5. Advanced care planning. Patient does have POLST in place, as full treatment and full code, does appear to have poor insight into her condition, expected ongoing decline on one hand, on the other hand she is quite arjun that she does expect to from her multiple comorbidities. Current caregiving is stable with primary caregiver, but would need further direction and support an alternative care plan if with Ning not overseeing medical POC/medications, and treatment plan. Nevaeh aware, would like to move her to [facility] closer to her and her brother. Time Spent: 60 minutes with greater than 50% of this done in counseling regarding wound care, pain management, coordination of care with home health and referral to wound care clinic
== END 2019-05-06 08:16 | disposition home or self-care (01) ==
LOC: PC 08:15
PROVIDERS: ATTEND Nurse Practitioner Adult Health
DX: Z51.5 Encounter for palliative care (principal); G35 Multiple sclerosis; T83.030A Leakage of cystostomy catheter, initial encounter; Y84.6 Urinary catheterization as the cause of abnormal reaction of the patient, or of later complication, without mention of misadventure at the time of the procedure; R32 Unspecified urinary incontinence; Z74.01 Bed confinement status; L89.524 Pressure ulcer of left ankle, stage 4; L89.616 Pressure-induced deep tissue damage of right heel; T42.6X6A Underdosing of other antiepileptic and sedative-hypnotic drugs, initial encounter; T39.1X6A Underdosing of 4-Aminophenol derivatives, initial encounter; Z91.128 Patient's intentional underdosing of medication regimen for other reason; Y92.019 Unspecified place in single-family (private) house as the place of occurrence of the external cause; Z91.19 Patient's noncompliance with other medical treatment and regimen; M24.559 Contracture, unspecified hip; M24.569 Contracture, unspecified knee; M24.576 Contracture, unspecified foot; Z72.0 Tobacco use; I50.9 Heart failure, unspecified; J44.9 Chronic obstructive pulmonary disease, unspecified; G89.29 Other chronic pain; Z79.899 Other long term (current) drug therapy; M16.12 Unilateral primary osteoarthritis, left hip; G31.84 Mild cognitive impairment of uncertain or unknown etiology; L89.519 Pressure ulcer of right ankle, unspecified stage; L89.899 Pressure ulcer of other site, unspecified stage; Z79.02 Long term (current) use of antithrombotics/antiplatelets; Z79.82 Long term (current) use of aspirin; Z79.891 Long term (current) use of opiate analgesic
CPT/HCPCS: 99350

== ENCOUNTER 2019-05-15 13:14 | Outpatient (CLI) | payer MEDICARE, OTHER | END 2019-05-15 13:15 | disposition short-term general hospital (02) | LOC: EMS 13:14 | PROVIDERS: ATTEND Surgery | DX: R68.89 Other general symptoms and signs (principal); Z74.01 Bed confinement status | CPT/HCPCS: A0425; A0429 ==

== ENCOUNTER 2019-05-29 03:21 | Outpatient (CLI) | payer MEDICARE, OTHER | END 2019-05-29 03:22 | disposition EMS.NT | LOC: EMS 03:21 | PROVIDERS: ATTEND Surgery | DX: Z03.89 Encounter for observation for other suspected diseases and conditions ruled out (principal) ==

== ENCOUNTER 2019-06-11 15:15 | Outpatient (CLI) | payer MEDICARE, OTHER ==
--- NOTE | 2019-06-11 17:31 | CONSULTATION NOTE ---
Palliative Care Follow Up - Referral Referring Provider: Dr. Mcintosh Time of Visit: [id number] Referral setting: Home Referral Reason: s/p hospitalization for AKA left/COPD - Information Sources Records reviewed: Previous records reviewed History/Review of Systems obtained from: Patient Exam limitations: Clinical condition (patient poor historian;) - History of Present Illness Update Brief HPI Update: This is a 73-year-old woman with advanced MS, who is been mostly bedbound for 4 years, with occasional being up in electric wheelchair. She has needed caregiving assistance for over 7 years per her report. She is quite eccentric, presents with very poor insight into her current conditions and her limitations. She has had a series of unfortunate events, including in her bedbound status had developed deep tissue injuries in her lower extremities in December of this year, with the sequela from her high risk due to PVD, PAD, and peripheral neuropathy. These continued to progress, despite home health nursing support, patient is nonadherent to pressure relief measures, often sabotage dressing the wounds, and refused as things worsened to obtain further medical care. She had been receiving information regarding concern for her deteriorating status, with including encouragement with failing outpatient therapy, for hospital admit. She finally at some point obtained a van, and was able to get to the wound care clinic, at this point it was seen as an emergent issue, and was seen by vascular surgery urgently. Patient was not happy with the information provided, and sought a second opinion, but unfortunately recommendations were for amputation. Patient in the meantime was admitted to [facility], after consult with vascular surgeon, as well as a second opinion for Left AKA, performed on 06/04/2019, she was discharged on 06/07/2019 to [facility] and the [facility] nursing [facility]. Patient was fairly non-communicative about her hospital stay during our visit today, her daughter reports she did have some delirium after her surgery, as well as her transition to the SNF. Patient with strong opinions regarding the SNF, and did not find it acceptable, and signed herself out AMA within 24 hours. This was not without much distress to the clinical staff, they were concerned about her decision-making capacity, patient had called 911 for transport, and they had made an APS referral. In review of the event with her daughter, she reports it was going to be a losing durant to have her there, she was not going to participate, and more likely to do better at home. This has been the case. Patient's long-term caregiver, did receive instruction on wound care, and has been performing since discharge on 06/09/2019. Home health RN is scheduled to see her tomorrow morning.Patient denies pain at time of visit, dressings are intact, on the left stump there is some strikethrough drainage covering about a 3 to 4 cm area, does appear to be serosanguineous in nature. My understanding is there is been no change in her ulcer of her right foot. It appears from surgeon notes, the plan was to follow-up with a second right AKA, the left was the first done as it did have exposed bone and concern for ongoing recurring infection. Patient denies any pain or discomfort, has been not needing any hydrocodone for pain. She is also not taking the gabapentin or Tylenol as scheduled before, she does present with poor nutrition, continues with minimal social support, caregiver is there in the morning, but available as needed. She does not have any nighttime caregiving, though does desire this. Patient does continue to smoke, about 1 pack a day, she does complain of some intermittent wheezing, denies chest pain, constipation, or any chills or fever. Patient at baseline does have a suprapubic catheter, the continues to leak intermittently, skin around it does not appear inflamed, abdomen is soft nont yasmin, on physical exam no wheezing or abnormal breath sounds anteriorly. Patient does not present with any worries or concerns, other would be "really pissed if they cut the other foot off". Patient's past medical history includes depression, chronic progressive multiple sclerosis, history of small bowel obstruction in 04/2017, right hip replacement, frozen left knee from OA, chronic cystitis, insomnia, tobacco use disorder, PVD, venous insufficiency, PERLA and BSO and moderate protein calorie malnutrition, anemia. DTI/pressure injury of her right foot and heel Social History - Living Situation Living arrangement: At home Living Situation: Alone, With caregiver(s) Support System: Patient has primary caregiver Ning [phone], who is there for several hours in the am, available if patient needs assistance intermittently. She is able to call and ask for help if needed. She has her set up with food/supplies/meds and cigerettes at bedside. Her daughter is well aware of patient's poor choices, but has not been able to do anything to impact it. She is more than willing to have her mother come move closer to her in [place], where she can get more care and oversight, but has not been able to move forward in making a solid plan.Does come up every few weeks and checks on her, and is due to come up in the next couple weeks. She was here for this surgery follow-up, her brother and patient's son will be accompanying her as well. Medications/Allergies - Medications Home Medications: Ambulatory Orders Medication Instructions Recorded Confirmed Hydrocodone/Acetaminophen 1 tab PO Q4H PRN 04/14/17 06/11/19 [Hydrocodone-Acetamin 5-325 mg] Venlafaxine [Effexor] 150 mg PO DAILY 03/30/18 06/11/19 Nystatin Cream [Mycostatin Cream] 1 ea TOP BID PRN MDD until resolved 04/20/18 1 08/12/18 Albuterol Sulfate [Proair Hfa 2 puffs PO Q4HR PRN 06/01/18 06/11/19 Inhaler] Metoprolol Succinate 25 mg PO DAILY 06/01/18 06/11/19 Olopatadine HCl [Patanol] 1 drops EACHEYE BID PRN 07/11/18 06/11/19 Aspirin 325 mg PO DAILY 10/03/18 06/11/19 Clopidogrel [Plavix] 75 mg PO DAILY 10/03/18 06/11/19 Ipratropium/Albuterol [Duoneb] 3 ml INH QID PRN 10/03/18 06/11/19 Omeprazole 20 mg PO DAILY 10/03/18 06/11/19 Acetaminophen 1,000 mg PO BID PRN 03/24/19 06/11/19 Gabapentin 300 mg PO ACHS PRN 03/24/19 06/11/19 Senna [Senokot] 1 - 2 tab PO PRN PRN 03/24/19 06/11/19 - Allergies Allergies/Adverse Reactions: Allergies Allergy/AdvReac Type Severity Reaction Status Date / Time No Known Drug Allergies Allergy Verified 03/30/18 11:44 Review of Systems - Constitutional Constitutional: reports: Fatigue, Poor appetite, Weight loss. denies: Fever, Chills - Ears, Nose & Throat Ears, Nose & Throat: reports: Hearing loss, Dentures - Cardiovascular Cardiovascular: denies: Palpitations, Chest pain - Respiratory Respiratory: reports: Wheezing, SOB with exertion. denies: SOB at rest - Gastrointestinal Gastrointestinal: reports: Poor appetite, Early satiety. denies: Constipation, Nausea, Reflux/heartburn - Genitourinary Genitourinary: reports: Other (suprapubic catheter) - Musculoskeletal Musculoskeletal: reports: Muscle aches, Stiffness, Limited range of motion, Muscle weakness, Transfer issues (now with AKA; is still transfering to electric chair) - Integumentary Integumentary: reports: Dryness, Other (dressings intact left stump; right foot wounds) - Neurological Neurological: reports: General weakness, Memory problems, Other (mild tremors) - Psychiatric Psychiatric: reports: Depression, Anxiety, Behavior disturbances (left fpc AMA; APS referral done on discharge) - Hematologic/Lymphatic Hematologic/Lymphatic: reports: Recurrent infections (bilateral foot wounds previous to surgery) - All Other Systems All Other Systems: reports: Other (limited ROS from patient) Physical Exam - Vital Signs Temperature: 97.2 C Pulse Rate: 61 Respiratory Rate: 18 O2 Saturation: 94 (ra @ rest) Blood Pressure: 142/72 - Physical Exam General Appearance: positive: Alert, Mild distress Eyes Bilateral: positive: Normal inspection ENT: positive: No signs of dehydration, Other (upper dentures) Neck: positive: No JVD, Trachea midline Cardiovascular: positive: Regular rate & rhythm Respiratory: positive: Diminished throughout (anterioir exam), Other (patient reporting smoking about a pack a day; had two cigerettes while present). negative: Wheezes, Rales, Rhonchi Abdomen: positive: Soft, Nml bowel sounds, Other (suprapubic catheter exit site; small amount of leaking; skin looks good for her) Skin: positive: Pallor, Other (dressings intact; no caregiver present to assist; will have RN send pics in AM to review) Extremities: positive: Other (patient with noted contractures of hips and right leg/knee/ankle) Neurologic/Psychiatric: positive: Mood/affect nml, Weakness, Flat affect Palliative Care - POLST Patient has POLST: Yes POLST Status: Full Code Pain: Pain improved (Patient denies any pain, though does allude to some pressure or discomfort in her right heel. She is currently not taking any pain medication, though she does have hydrocodone 5 mg / 325 mg available for discomfort.) Anorexia: Moderate (4-6), Weight loss (patient feels most likely has lost some weight) Sleep: Variable sleep pattern Constipation: No, Comment (incontinent) Performance Status: Patient is bedbound, she does not demonstrate any ability to do any bed mobility. She does have a Layne lift, this is what they used to put her in the electric wheelchair, and she is able to transport by her van. She would benefit from further follow-up from rehab therapies, unclear if patient is willing to participate or engage, we will follow-up with home health RN for further planning regarding functional status. She is dependent on caregiver for all ADLs, meal prep, and bed mobility. Patient is able to self feed and manage from her bed her medications and phone. - Palliative Care Discussion: Patient does seem to have difficulty as far as acknowledging her AKA, did try and explore the emotional component of this, was quickly brushed off. When asked about follow-up on second surgery, she reports she be quite pissed about it, but does seem somewhat resigned to her current situation. An attempt to explore her end-of-life wishes, she was quite focused on her end-of-life plans, patient does have a full code POLST, this will need to be revisited at some point. I do note in the hospital records, she continued on that same. When spoke to daughter about how best approach her mother, reports that she is always been quite strong-willed and opinionated, is very seldom swayed. She is aware of the pending APS referral, she is trying to find a balance as she is often quite argumentative with the daughter, to support her mother's wishes as well as to create a safe plan. Impression and Recommendations - Palliative Care Impression: This a 73-year-old [place] woman with advanced MS, essentially mostly homebound, now presenting with AKA left leg. She is recently discharged from hospital, and left AMA from SNF. She does have a tenuous situation, continues with poor bed mobility, and continued ulcer on her right heel and foot. Plan at this point in time is for follow-up AKA on her right side, including her right contracted knee. Patient does not present with any acute pain, at high risk for sequela of bedbound status, and further skin breakdown. Patient is fiercely independent, and slow to change any behaviors. Palliative care continue to work on building rapport, assist with anticipatory guidance, and providing support in her home setting. Recommendations/Counseling Done: 1. DTI right heel. Patient has multiple areas of pressure, currently is being treated just for maintenance, with Betadine wash. Home health RN photo is examined next day 06/12, does have reddened edges, quite black and enlarged in size. Patient still unable to do pressure relief, is somewhat resistant to any instructions on how might to schedule turning or more aggressive regarding pressure relief. At this point in time she is scheduled to have a second AKA in 3 to 6 weeks. We will continue to monitor for increasing signs of infection, patient this point time denies any escalation of pain. 06/12 Follow-up with home health RN, plan for weekly oversight and caregiver to do current wound care. Patient does have follow-up appointment with her vascular surgeon 06/19. 2. AKA left leg. On examination of photos, edges well approximated, rekha intact. Pain much lessened. Patient is somewhat emotionally detached regarding conversations about surgery and loss of limb. Will never be a functional walker, if patient willing can work with PT for improved transfers and overall generalized strengthening. 3. MS. Patient currently not receiving any active treatment, has had slow decline over several years, unclear if patient has significant cognitive changes. Patient is often evasive in her answering, does not present with acute confusion. Patient most likely not to cooperate with MMSE, will continue to monitor through ongoing visits and home health. Patient has long-term had independent decision-making, most likely not aligned with her best wellbeing, but has remained fiercely independent. 4. COPD. Patient has continued to smoke, she does have her inhaler and nebulizer for intermittent episodes of shortness of breath or wheezing. Patient is aware of the detriment to her health with her smoking, but not interested in giving it up. Do note in the notes, she continued through hospitalization as well at SNF. 5. Advanced care planning. Patient currently has a POLST that is full code, did not explore at this visit, continue to try and build rapport. Patient is at high risk for ongoing sequela related to her bedbound status, poor nutrition, and worsening right foot DTI. CC Home Health Daughter aware palliative care available, for patient if has sudden change in condition, or needs further support and assistance in advance care planning. Home health will continue on a weekly basis, palliative care available for problem solving as needed. Plan at this time is to follow-up in 6 to 8 weeks unless other urgent matters arise Time Spent: 45 minutes with greater than 50% of this done in counseling, reviewing coordination of care with caregiver, home health and daughter, and anticipatory guidance regarding long-term care plan.
== END 2019-06-11 15:16 | disposition home or self-care (01) ==
LOC: PC 15:15
PROVIDERS: ATTEND Nurse Practitioner Adult Health
DX: Z51.5 Encounter for palliative care (principal); G35 Multiple sclerosis; J44.9 Chronic obstructive pulmonary disease, unspecified; I73.9 Peripheral vascular disease, unspecified; G62.9 Polyneuropathy, unspecified; L89.616 Pressure-induced deep tissue damage of right heel; L89.896 Pressure-induced deep tissue damage of other site; R63.0 Anorexia; M24.561 Contracture, right knee; M24.552 Contracture, left hip; M24.551 Contracture, right hip; M24.571 Contracture, right ankle; Z74.01 Bed confinement status; Z91.19 Patient's noncompliance with other medical treatment and regimen; Z72.0 Tobacco use; Z93.6 Other artificial openings of urinary tract status; Z89.612 Acquired absence of left leg above knee; Z79.899 Other long term (current) drug therapy
CPT/HCPCS: 99349

== ENCOUNTER 2019-08-22 08:15 | Outpatient (CLI) | payer MEDICARE, OTHER ==
--- NOTE | 2019-08-22 09:42 | CONSULTATION NOTE ---
Palliative Care Follow Up - Referral Referring Provider: Dr. Fady Mcintosh Time of Visit: [id number] Referral setting: Home Referral Reason: s/p right AKA/COPD - Information Sources Records reviewed: Previous records reviewed History/Review of Systems obtained from: Patient, Caregiver (Butch who is primary caregiver provides most of history) Exam limitations: Clinical condition (poor historian due to short term memory issues) - History of Present Illness Update Brief HPI Update: This is a 74-year-old woman with advanced MS, who has been mostly bedbound for the last 4 years and will occasionally get up in her electric wheelchair. She is eccentric and sarcastic presenting with very poor insight into her current medical conditions as well as her limitations. She has a long-term suprapubic catheter. 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 She was discharged after her surgery to a longterm facility however she signed her self out AMA within 24 hours. Home health services were resumed. She had gangrene of her right foot with PAD and subsequently underwent an AKA at [facility] 05/24/2020 and was discharged on 07/29/2019 she. Postoperatively she developed a urinary tract infection due to Pseudomonas with encephalopathy and leukocytosis and was treated with cefepime and transitioned to oral Cipro upon discharge. She also had acute postop anemia secondary to blood loss superimposed on chronic normocytic anemia. Since her right AKA and discharge 05/29/2020 she has been followed by home health therapy services as well as home health nursing. The rekha have remained intact and there is no evidence of erythema or discharge. The patient had a postop appointment on 08/20/2019 but as the edges of the wound bed have not adhered to one another the rekha were not removed and she is scheduled for repeat follow-up for staple removal on 09/02/2019. There is talk regarding shaving the bone to her left stump due to pressure points that could potentially lead to skin breakdown despite intervention with a heel protector and a conical shape to her stump. This is to be further evaluated on her next vascular surgery appointment on 09/02/2019. The patient is also looking into having her silicone breast implants removed from the right breast due to intermittent discomfort and per the recommendation of her PCP. It is unclear whom she is to see you for this intervention as typically the appointments go through the patient's primary caregiver, Butch. Recommended that the caregiver follow-up with her PCPs office regarding the referral and appointment date. The patient herself denies any pain or discomfort and has not been using any PRN hydrocodone for pain. Her caregiver reports that she has had an increased appetite and has been eating more of her food portions. The patient has a history of COPD and continues to smoke approximately 1 pack/day. She does have some intermittent wheezing but will use her pro-air HFA as needed or if worsening wheezing she will use her nebulizer. She denies chest pain, fever, or chills. Patient's past medical history includes depression, left AKA 2018, right AKA 2019, PAD, chronic progressive multiple sclerosis, history of small bowel ob struction in 04/2017, right hip replacement, chronic cystitis, neurogenic bladder from multiple sclerosis, insomnia, tobacco use disorder, venous insufficiency, CHF (EF 25-30%), Afib, PERLA and BSO and moderate protein calorie malnutrition, chronic normocytic anemia. Social History - Living Situation Living arrangement: At home Living Situation: Alone, With caregiver(s) Support System: Patient has a primary caregiver Butch [phone], who is present from approximately 7:30 AM to 1 PM daily. She is also available if the patient needs assistance imminently. Otherwise the patient lives alone. She has everything that she would need right around her bedside including a telephone. She is able to call and ask for help if needed. [place] with multiple animals (donkeys, peacocks, chickens, two dogs) and her caregiver also oversees the care of the animals as well. She has two children, Nevaeh and Shad who reside in [place]. Medications/Allergies - Medications Home Medications: Ambulatory Orders Medication Instructions Recorded Confirmed Hydrocodone/Acetaminophen 1 tab PO Q4H PRN 04/14/17 08/22/19 [Hydrocodone-Acetamin 5-325 mg] Venlafaxine [Effexor] 150 mg PO BID 03/30/18 08/22/19 Nystatin Cream [Mycostatin Cream] 1 ea TOP BID PRN MDD until resolved 04/20/18 08/22/19 Albuterol Sulfate [Proair Hfa 2 puffs PO Q4HR PRN 06/01/18 08/22/19 Inhaler] Metoprolol Succinate 25 mg PO DAILY 06/01/18 08/22/19 Olopatadine HCl [Patanol] 1 drops EACHEYE BID PRN 07/11/18 08/22/19 Aspirin 325 mg PO DAILY 10/03/18 08/22/19 Clopidogrel [Plavix] 75 mg PO DAILY 10/03/18 08/22/19 Ipratropium/Albuterol [Duoneb] 3 ml INH QID PRN 10/03/18 08/22/19 Omeprazole 20 mg PO DAILY 10/03/18 08/22/19 Acetaminophen 1,000 mg PO BID PRN 03/24/19 08/22/19 Gabapentin 300 mg PO ACHS PRN 03/24/19 08/22/19 Senna [Senokot] 1 - 2 tab PO PRN PRN 03/24/19 08/22/19 Citric AC/Gluconolact/Mag Carb BID MDD irrigate suprapubic cath 08/22/19 [Renacidin Irrigation Solution] Ondansetron [Ondansetron Odt] 4 mg PO DAILY PRN 08/22/19 08/22/19 - Allergies Allergies/Adverse Reactions: Allergies Allergy/AdvReac Type Severity Reaction Status Date / Time No Known Drug Allergies Allergy Verified 03/30/18 11:44 Review of Systems - Constitutional Constitutional: reports: Fatigue. denies: Fever, Chills - Eyes Eyes: reports: Corrective lenses - Ears, Nose & Throat Ears, Nose & Throat: reports: Hearing loss, Dentures - Cardiovascular Cardiovascular: denies: Chest pain, Edema - Respiratory Respiratory: reports: SOB with exertion. denies: Sputum production, SOB at rest - Gastrointestinal Gastrointestinal: reports: Other (Appetite improved). denies: Abdominal pain, Constipation, Nausea (resolved) - Genitourinary Genitourinary: reports: Other (suprapubic catheter) - Musculoskeletal Musculoskeletal: reports: Stiffness, Limited range of motion, Transfer issues - Integumentary Integumentary: reports: Other (stamples to right stump; mild redness to left stump) - Neurological Neurological: reports: General weakness, Memory problems, Other (mild tremors intermittent) - Psychiatric Psychiatric: reports: Depression - Hematologic/Lymphatic Hematologic/Lymphatic: reports: Recurrent infections (bilateral foot wounds res ulting in bilateral AKA) - All Other Systems All Other Systems: reports: Other (ROS reviewed with patient and caregiver, Ning) Physical Exam - Vital Signs Temperature: 35.6 C Pulse Rate: 100 Respiratory Rate: 18 O2 Saturation: 97 (on RA at rest) Blood Pressure: 115/76 - Physical Exam General Appearance: positive: No acute distress, Alert, Other (bright and alert today smoking a ciagarette) Eyes Bilateral: positive: Other (+corrective lenses) ENT: positive: No signs of dehydration Neck: positive: No JVD, Trachea midline Cardiovascular: positive: Regular rate & rhythm. negative: No murmur Respiratory: positive: No respiratory distress, Breath sounds nml. negative: Wheezes, Rhonchi Abdomen: positive: Non-tender, Soft, Nml bowel sounds, Other (bladder nondistended; +suprapubic catheter with exit site without erythma or discharge) Skin: positive: Other (right stump with rekha intact after removal of soft dressing with wound edges well approximated without erythema or discharge. left stump with heel protector in conical shape removed with evidence of pointed shape of femur and blanchable erythema with skin intact.) Extremities: positive: Other (Contractures) Neurologic/Psychiatric: positive: Oriented x3, Flat affect, Other (scarastic wit) Palliative Care - POLST Patient has POLST: Yes POLST Status: Full Code Pain: No pain (denies report of any pain) Tiredness/Fatigue: Mild (1-3) Nausea: None Anorexia: Mild (1-3) (appetite has improved per caregiver) Depression: None Sleep: Variable sleep pattern Constipation: No, Comment (incontinent) Performance Status: The patient is bedbound. She does have a Layne lift in her room and this is what is used to place her in her electric wheelchair and she is able to be transported in her van. She continues to work with physical therapy services and later today is scheduled with them and desires to be up in her wheelchair so that way she may go around her property in the sunshine. She has a suprapubic catheter in place and is incontinent of stool. She is dependent on her primary caregiver for all ADLs, meal prep, and bed mobility. Patient is able to self feed and manage from her bed her medications and has her phone present. - Palliative Care Discussion: Patient today when discussing her bilateral AKA's was sarcastic and joking reporting that she would like to "kick my legs but I cannot." This are PRODUCTION ANALYST to try to explore the emotional component of her bilateral AKA's but was continually brushed off with sarcasm and jokes. When bringing up the need for bone shaving to her left AKA to reduce pressure points to prevent the risk of further skin breakdown the patient offered a shrug and "did not see what the big deal was." She has poor insight into her severity of her medical conditions. Her primary caregiver Butch is very involved in her care. The patient continues to be opinionated and strong-willed. She presently has a POLST as Full Code that will need to be re-addressed in the future. Impression and Recommendations - Palliative Care Impression: This is a 74-year-old woman originally from [facility] with a history of chronic, progressive multiple scoliosis who has had the misfortune of bilateral foot wounds and a history of PAD that has resulted in bilateral AKA. She is mostly homebound. She demonstrates some cognitive impairment with short-term memory deficits that she throws off with her sharp lip and sarcasm. Palliative care will continue to work on building rapport, assist with anticipatory guidance, and symptom management. Recommendations/Counseling Done: 1.Right and Left AKA with PAD. s/p most recent AKA with rekha intact to right stump without clear closer along wound edges without evidence of infection. F/u with vascular surgery on 09/02/2019 for staple removal. Due to prominence of left femur along the stump the vascular surgeon is evaluating reducing the bone to reduce the risk of skin breakdown. COPD. Continues to smoke despite counseling to discontinue. She will use her proair HFA several times during the day for relief of her wheezing but if worsening symptoms with administer her duoneb. 2.Breast Implantation. Patient desires to have her right breast implantation removed due to intermittent discomfort and she has had the silicone implant for over 40 years per her report. Advised caregiver and patient to f/u with PCP regarding referral for surgeon for removal. 3.Chronic, progressive MS. Bedbound status. Continue to work with home physical therapy with goal to get up in her electric wheelchair to view her property. 4. Depression. Stable. Continue venlafaxine 150mg BID. Patient's daily contact is with her caregiver, Butch. Discussed gill net stringer services but patient declined. Will refer for volunteer and patient was open to a female volunteer who loves animals. 5. Mild cognitive impairment. Poor recall with short term memory issues that she covers with her sarcasm. Will assess further in the future with MMSE or SLUMS testing. 6. Advanced care planning. POLST is Full code and Full Treatment. As the patient is new to this [facility], will continue to build rapport and explore goals of care. [facility] Home [facility] Time Spent: Total time spent 30 minutes with greater than 50% of this spent in counseling and coordination of care with patient and primary caregiver, message left for daughter Nevaeh regarding POC, discussion of palliative care volunteer for reduction of isolation, vascular surgery follow-up, review of symptom rajendra gement and anticipatory guidance. Disclaimer: The chart note was formulated using voice recognition technology and unfortunately sound alike errors may occur.
== END 2019-08-22 08:16 | disposition home or self-care (01) ==
LOC: PC 08:15
PROVIDERS: ATTEND Nurse Practitioner Family
DX: Z51.5 Encounter for palliative care (principal); G35 Multiple sclerosis; J44.9 Chronic obstructive pulmonary disease, unspecified; F32.9 Major depressive disorder, single episode, unspecified; G31.84 Mild cognitive impairment of uncertain or unknown etiology; F17.210 Nicotine dependence, cigarettes, uncomplicated; Z79.899 Other long term (current) drug therapy; Z79.02 Long term (current) use of antithrombotics/antiplatelets; Z74.01 Bed confinement status; Z93.50 Unspecified cystostomy status; Z89.611 Acquired absence of right leg above knee; Z89.612 Acquired absence of left leg above knee
CPT/HCPCS: 99348

== ENCOUNTER 2019-10-27 18:10 | Outpatient (CLI) | payer MEDICARE, OTHER | END 2019-10-27 23:59 | disposition EMS.NT | LOC: EMS 18:10 | PROVIDERS: ATTEND Surgery | DX: Z53.9 Procedure and treatment not carried out, unspecified reason (principal) ==

== ENCOUNTER 2019-11-05 11:00 | Outpatient (CLI) | payer MEDICARE, OTHER ==
--- NOTE | 2019-11-05 15:09 | CONSULTATION NOTE ---
Palliative Care Follow Up - Referral Referring Provider: Dr. Mcintosh Time of Visit: [id number] Referral setting: Home Referral Reason: COPD/MS/Advanced Care Planning - Information Sources Records reviewed: Previous records reviewed History/Review of Systems obtained from: Patient, Family (daughter, Nevaeh), Caregiver (Butch) Exam limitations: Clinical condition (did not wish to engage much in examination today and opted to sleep) - History of Present Illness Update Brief HPI Update: This is a 74-year-old woman with advanced MS, who has been mostly bedbound for the last 4 years and will occasionally get up to use her electric wheelchair. She is eccentric presenting with poor insight into her medical conditions as well as her limitations. She has a long-term suprapubic catheter. Due to development of pressure ulcers and PAD she underwent bilateral AKA the end of 2018 and in the beginning of 2019. She also has a history of chronic normocytic anemia. Due to additional skin breakdown at the stump of her left AKA She Had a Revision Performed at [facility] in [place] by Dr. Shepherd on 10/24/2019 she was discharged to her private caregiver to return home on 10/25/2019. That began after discharge the patient had a saturated dressing at the site of her revision and AKA and after discussing the clinical picture her caregiver and her daughterShyla contacted EMS. However, when EMS was called the patient herself refused transport. When the patient was seen by home health nursing for wound care on the Monday (10/28/2019) following surgery she did have a blood pressure of 100/58 with improvement of her bleeding and was not tachycardic. She continued to decline further intervention. Her metoprolol was held until 10/29 and her antiplatelet therapy, Plavix and aspirin, were held for 5 days. The patient's caregiver reports that she has resumed her antiplatelet therapy. The patient herself reports that she "feels fine" and she has had resolution of her symptoms beginning this past Monday. Her caregiver, Butch reports that the patient has returned to her baseline appetite and behaviors. THe last two nights the patient has been up late and is sleeping more today. She has a variable sleep pattern. She was scheduled for a removal of her right breast implants this month however, due to COVID19 this has been canceled and postponed. She wishes to have this procedure performed so that she may have improvement of her discomfort at the site of the breast implant. She has recently had some bilateral eye irritation with itching. Denies blurred vision. She wears eyeglasses. Her caregiver has been administering [id number] Visine drops without improvement. The patient herself denies any discharge to her eyes and denies a history of seasonal allergies. The patient has a past medical history that includes depression, left AKA 2018 with revision in 2019, right AKA 2019, PAD, chronic progressive multiple scoliosis, history of small bowel obstruction in 04/2017, right hip replacement, chronic cystitis, neurogenic bladder from multiple scoliosis, insomnia, tobacco use disorder, venous insufficiency, CHF (EF 25 to 30% (, A. fib, PERLA and BSO, moderate protein calorie nutrition, chronic normocytic anemia. Social History - Living Situation Living arrangement: At home Living Situation: Alone, With caregiver(s) (Butch) Support System: The patient has a primary caregiver Yanira [phone] who is present from approximately 7:30 AM to 1 PM daily. She is available if the patient needs any assistance imminently. The patient herself frequently contacts were we know when she is not on site. However, the patient resides alone. She has everything that she would need right around her bedside including a telephone. She is able to use the telephone to call and ask for help if needed. [place] with multiple animals (donkeys, peacocks, chickens, 2 dogs), and her caregiver oversees the care of the animals as well as her medication administration. The patient is recently . Her in [place] in 2018 and he had a history of dementia. She has 2 children, Nevaeh and Shad who reside in [place]. Her children will come up routinely to visit. Otherwise, her children oversee management remotely. Her daughter, Nevaeh ([phone]) is the patient's DPOA. Medications/Allergies - Medications Home Medications: Ambulatory Orders Medication Instructions Recorded Confirmed Hydrocodone/Acetaminophen 1 tab PO Q4H PRN 04/14/17 08/22/19 [Hydrocodone-Acetamin 5-325 mg] Venlafaxine [Effexor] 150 mg PO BID 03/30/18 11/05/19 Albuterol Sulfate [Proair Hfa 2 puffs PO Q4HR PRN 06/01/18 08/22/19 Inhaler] Metoprolol Succinate 25 mg PO DAILY 06/01/18 08/22/19 Aspirin 325 mg PO DAILY 10/03/18 08/22/19 Clopidogrel [Plavix] 75 mg PO DAILY 10/03/18 08/22/19 Ipratropium/Albuterol [Duoneb] 3 ml INH QID PRN 10/03/18 08/22/19 Omeprazole 20 mg PO DAILY 10/03/18 08/22/19 Acetaminophen 500 mg PO Q6H PRN 03/24/19 08/22/19 Senna [Senokot] 1 - 2 tab PO PRN PRN 03/24/19 11/05/19 Citric AC/Gluconolact/Mag Carb BID MDD irrigate suprapubic cath 08/22/19 [Renacidin Irrigation Solution] Ondansetron [Ondansetron Odt] 4 mg PO DAILY PRN 08/22/19 11/05/19 Ketotifen Fumarate [Zaditor] 1 drops EACHEYE BID MDD for 7 days 11/05/19 11/05/19 - Allergies Allergies/Adverse Reactions: Allergies Allergy/AdvReac Type Severity Reaction Status Date / Time No Known Drug Allergies Allergy Verified 03/30/18 11:44 Review of Systems - Constitutional Constitutional: denies: Fever - Eyes Eyes: reports: Corrective lenses. denies: Blurred vision - Ears, Nose & Throat Ears, Nose & Throat: reports: Hearing loss - Cardiovascular Cardiovascular: denies: Chest pain - Respiratory Respiratory: denies: Wheezing - Gastrointestinal Gastrointestinal: denies: Abdominal pain, Constipation, Vomiting - Genitourinary Genitourinary: reports: Other (suprapubic catheter) - Musculoskeletal Musculoskeletal: reports: Limited range of motion, Transfer issues. denies: Joint pain - Integumentary Integumentary: reports: Other (rekha to left stump) - Neurological Neurological: reports: General weakness, Memory problems - Psychiatric Psychiatric: reports: Depression - Hematologic/Lymphatic Hematologic/Lymphatic: reports: Recurrent infections (UTI) - All Other Systems All Other Systems: reports: Reviewed and negative (ROS reviewed with patient and caregiver, Ning) Physical Exam - Vital Signs Temperature: 36.5 C Pulse Rate: 88 Respiratory Rate: 14 O2 Saturation: 95 (on RA at rest) Blood Pressure: 144/66 (right wrist cuff before medication) - Physical Exam General Appearance: positive: No acute distress, Alert, Other (Resting in bed, arousable but minimally engaged during examination) Eyes Bilateral: positive: PERRL, Other (rubbing of bilateral eyes; evidence of local erythema to right conjunctiva >left conjunctiva without discharge; +corrective lenses) ENT: positive: No signs of dehydration Neck: positive: Trachea midline Cardiovascular: positive: Regular rate & rhythm, No murmur, No gallop Respiratory: positive: No respiratory distress, Breath sounds nml (ausculated anteriorly). negative: Rales Abdomen: positive: Non-tender, Soft, Nml bowel sounds, Other (+suprapubic catheter with exit site withuot discharge or erythema). negative: Distended Extremities: positive: Other (Right AKA with incision line well healed; Left AKA with dressing C/D/I without saturation or discharge---see RN notes for full details) Neurologic/Psychiatric: positive: Oriented x3, Flat affect, Other (Disinterested in engaging with [facility] today and wished to sleep. She would interject her wishes or opinion if continually probed.) Palliative Care - POLST Patient has POLST: Yes POLST Status: Full Code Pain: No pain Sleep: Variable sleep pattern Constipation: No, Managed Performance Status: The patient is bedbound. She has a Layne lift in her room and this is what she uses to be transferred to her electric wheelchair. She has a transporter van. She has a suprapubic catheter in place which is managed by her caregiver, Marlee. She is incontinent of stool. She is dependent on her primary caregiver for her ADLs, meal prep, and her bed mobility. She is able to self feed and manage from her bed her medications and her phone is in reach at bedside. - Palliative Care Discussion: And expiration today with the patient in regards to her to declining of having EMS take her to the hospital after she had bleeding from her revised AKA site she reported that she did not wish to go and is doing "much better." When discussion today with this [facility] regarding obtainment of a CBC the patient was adamant that she did not want her blood drawn despite various approaches. At the present time, even if her labs were to demonstrate that she was anemic she is not interested in presenting to the hospital for management. Clinically, the patient presents as being stable from her initial reports of bleeding post- operatively when EMS was contacted. The patient has poor insight into her medical conditions as well as her limitations. This [facility] wanted to explore her limitation and perform a MMSE today, but the patient opted to sleep through much of the visit and declined to participate. In review with the patient's daughter, Nevaeh who is her D POA, the patient has had evidence of cognitive decline more recently and has become more hostile towards others in the last few years. The patient herself is quite opinionated and independent. Is difficult to sway her. The patient's daughter has learned over the years that she will remove herself from the situation if her mother becomes more hostile as the interaction will only escalate. Nevaeh, reports that after Her mother had her AKA she demonstrated sundowning. In the patient's living will she has been clear that she wishes for all measures for treatment to be implemented. This coincides with her previous wishes stated on her POLST to be a full code with full treatment from 2018. During each hospitalization she has requested to be a Full Code as well. The patient's daughter reports that her mother has not swayed in her decisions regarding this point. Nevaeh has attempted to have conversations with the patient in regards to planning for the future and goals of care but as she resides in [place] and the patient has difficulty hearing these conversations, they have not been completed. Her daughter also reports in recent years that the patient has become more childlike and easily distracted. The patient's daughter reports that Krista, has been a God send as [place] out of options to keep the patient here on [facility]. Lengthy discussion was had with the daughter in regards to hoping for the best but preparing for the worst. At the present time the patient is to remain on her home under the supervision and care of Paul with her daughter and son checking in and having to intervene remotely. The patient's daughter wishes to support her mother's wishes and to create a safe plan and have her reside within her home with her animals for as long as possible. Ultimately, the patient's children wish for her to reside closer to them in [place] so that they could oversee her care. At this point, both the patient and her brother have discussed if a crisis were to occur (such as Butch were to be unable to care for the patient) they would look into a respite stay and transfer the patient to a nursing facility for further care and management. Results - Lab Results Lab results reviewed: Yes Lab and Imaging Results: 10/24/2019: Sodium 141, potassium 4.2, BUN 16, creatinine 0.55, estimated GFR greater than 60, WBC 10.4, RBC 3.59, hemoglobin 9.9, hematocrit 32.0%, platelet 514 Impression and Recommendations - Palliative Care Impression: This is a 74-year-old woman originally from [place] with a history of chronic, progressive multiple scoliosis who has had a bilateral foot wounds and PAD that has resulted in bilateral AKA. She recently had a revision to her left AKA with postoperative bleeding that has since resolved. The patient declined EMS services when she developed postoperative bleeding within her home. The bleeding to her left AKA has resolved and she has returned to baseline. She is mostly homebound. She demonstrates some cognitive impairment with short-term memory deficits but this is difficult to assess today as she does not wish to participate in the conversation or evaluation. Palliative care will continue to build rapport, assist with anticipatory guidance, symptom management, and advanced care planning. Recommendations/Counseling Done: 1. Chronic Normocytic anemia with recent post-operative bleeding for revision of left AKA site. Patient is asymptomatic and VSS without tachycardia or hypotens ion. Discussed obtainment of CBC to evaluate H & H but declined as she is "feeling fine" and would not wish for transfer to the hospital for a blood transfusion. Daughter/DPNevaeh YADAV aware of patient's decline of CBC at this time. Will continue to monitor. 2. Left AKA revision, right AKA with PAD. Left AKA wound site intact. Continue ASA and plavix as prescribed. F/u with vascular surgery in 4-6 weeks as recommended after discharge 10/25/2019 for staple removal. nursing to continue to follow. 3. Allergic conjunctivitis. OU. Likely exacerbated by having door to room open. Start zaditor opth drops 1 drop each eye BID x 7 days. Use of cool compress to each eye for 10 minutes twice a day for 7 days. Contact if no improvement or worsening symptoms. 4. Breast Implantation. Right breast implantation is causing intermittent discomfort and she wishes to have this removed. She was scheduled for procedure on 11/11/2019 but this was cancelled due to COVID-19 and will re-schedule as soon as safe to do so. 5. Cognitive impairment. Patient has a history of poor recall and short-term memory issues. Questionable underlying vascular component given history of PAD. Unable to perform cognitive assessment with [facility] and asked testing today as the patient did not wish to participate. She lacks insight in regards to her medical conditions and limitations. She has had a history of poor adherence to treatment plans and recommendations by providers. The patient's son is to be visiting this weekend and will attempt to reassess for decision-making capacity as allows with the son present. If unable to assess next week will perform at next evaluation. 6. Chronic, progressive MS. Bedbound status. Able to use her Layne lift to sit in her electric wheelchair. Supportive care. Requires caregiving support. 7. Advanced care planning. Patient has been clear in her living will that she wishes for treatment. This is also evident in her request for full code/full treatment. Her daughter wishes to honor her mother's wishes but there is underlying concern regarding her decision making. At the present time the ideal situation is for the patient to remain in her home with her long-term private caregiver Butch. However, the daughter/DPOA is aware will need to plan for the future as the patient's caregiving needs increase and desire to have a safe plan in place. Will continue to explore goals of care and provide assistance with the family for advanced care planning. Time Spent: [facility] [id number] Counseled and coordinated care with patient, caregiver and daughter/DPVICENTA Herring. Reviewed POC as well as discussed symptom management, anticipatory guidance and advanced care planning. Disclaimer: The chart note was formulated using voice recognition technology and unfortunately sound alike errors may occur.
== END 2019-11-05 11:01 | disposition home or self-care (01) ==
LOC: PC 11:00
PROVIDERS: ATTEND Nurse Practitioner Family
DX: Z51.5 Encounter for palliative care (principal); D64.9 Anemia, unspecified; H10.13 Acute atopic conjunctivitis, bilateral; R41.3 Other amnesia; I73.9 Peripheral vascular disease, unspecified; T85.848A Pain due to other internal prosthetic devices, implants and grafts, initial encounter; G35 Multiple sclerosis; Z79.899 Other long term (current) drug therapy; Z79.82 Long term (current) use of aspirin; Z79.02 Long term (current) use of antithrombotics/antiplatelets; Z98.890 Other specified postprocedural states; Z91.19 Patient's noncompliance with other medical treatment and regimen; Z89.612 Acquired absence of left leg above knee; Z89.611 Acquired absence of right leg above knee; Z74.01 Bed confinement status
CPT/HCPCS: 99349

== ENCOUNTER 2019-11-11 14:30 | Outpatient (CLI) | payer MEDICARE, OTHER ==
--- NOTE | 2019-11-11 16:12 | CONSULTATION NOTE ---
Palliative Care Follow Up - Referral Referring Provider: Dr. Mcintosh Time of Visit: [id number] Referral setting: Home Referral Reason: Cognitive Assessment/MS - Information Sources Records reviewed: Previous records reviewed History/Review of Systems obtained from: Patient, Family (son, Shad present) Exam limitations: Clinical condition (mild cognitive impairment) - History of Present Illness Update Brief HPI Update: This is a 74-year-old woman with advanced MS, who has been mostly bedbound for the last 4 years with noted cognitive impairment. On last evaluation with this [employer] the patient did not wish to participate in further evaluation of her cognitive status nor have a dicussion regarding her overall health as she "felt fine." Today, she is agreeable for an evaluation and her son, Shad, is present and has been present for the last few days. She reports that they have and an enjoyable time. The patient has had AKA to bilateral legs in late 2018 and early 2019. She had a revision preformed to her left AKA due to skin breakdown at [facility] by Dr. Shepherd on 10/24/2019. She had bleeding from the site but declined ER evaluation when EMS was contacted by her careiver. Her antiplatelet therapy was held for 5 days and has been resumed without any recurrence of bleeding. The patient is presently on plavix therapy and does not wish to restart ASA therapy. On last assessment she had bilateral eye irritation with itching without change in vision. She has been using prescribed zaditor with improvement of her itching. She wears corrective lenses. The patient has a past medical history that includes depression, left AKA 2018 with revision in 2019, right AKA 2019, PAD, chronic progressive multiple scoliosis, history of small bowel obstruction in 04/2017, right hip replacement, chronic cystitis, neurogenic bladder from multiple scoliosis, insomnia, tobacco use disorder, venous insufficiency, CHF (EF 25 to 30% (, A. fib, PERLA and BSO, moderate protein calorie nutrition, chronic normocytic anemia. Social History - Living Situation Living arrangement: At home Living Situation: Alone (with private caregiver, Michele who comes daily) Support System: The patient has a primary caregiver Michele [phone] who is present from approximately 7:30 AM to 1 PM daily. She is available if the patient needs any assistance imminently. The patient herself frequently contacts her caregiver even when she is not on the premise. However, the patient resides alone. She has everything that she would need right around her bedside including a tele phone. She is able to use the telephone to call and ask for help if needed. [place] with multiple animals (donkeys, peacocks, chickens, 2 dogs), and her caregiver oversees the care of the animals as well as her medication administration. Geo has 2 children, Nevaeh and Shad who reside in [place]. Her children will come up routinely to visit. Otherwise, her children oversee management remotely. Her daughter, Nevaeh ([phone]) is the patient's DPOA. Medications/Allergies - Medications Home Medications: Ambulatory Orders Medication Instructions Recorded Confirmed Hydrocodone/Acetaminophen 1 tab PO Q4H PRN 04/14/17 08/22/19 [Hydrocodone-Acetamin 5-325 mg] Venlafaxine [Effexor] 150 mg PO BID 03/30/18 11/05/19 Albuterol Sulfate [Proair Hfa 2 puffs PO Q4HR PRN 06/01/18 08/22/19 Inhaler] Metoprolol Succinate 25 mg PO DAILY 06/01/18 08/22/19 Clopidogrel [Plavix] 75 mg PO DAILY 10/03/18 08/22/19 Ipratropium/Albuterol [Duoneb] 3 ml INH QID PRN 10/03/18 08/22/19 Omeprazole 20 mg PO DAILY 10/03/18 08/22/19 Acetaminophen 500 mg PO Q6H PRN 03/24/19 08/22/19 Senna [Senokot] 1 - 2 tab PO PRN PRN 03/24/19 11/05/19 Citric AC/Gluconolact/Mag Carb BID MDD irrigate suprapubic cath 08/22/19 [Renacidin Irrigation Solution] Ondansetron [Ondansetron Odt] 4 mg PO DAILY PRN 08/22/19 11/05/19 Ketotifen Fumarate [Zaditor] 1 drops EACHEYE BID MDD for 7 days 11/05/19 11/05/19 - Allergies Allergies/Adverse Reactions: Allergies Allergy/AdvReac Type Severity Reaction Status Date / Time No Known Drug Allergies Allergy Verified 03/30/18 11:44 Review of Systems - Constitutional Constitutional: denies: Fever - Eyes Eyes: reports: Corrective lenses. denies: Irritation, Blurred vision - Ears, Nose & Throat Ears, Nose & Throat: reports: Hearing loss - Cardiovascular Cardiovascular: denies: Chest pain - Respiratory Respiratory: denies: Wheezing - Gastrointestinal Gastrointestinal: denies: Abdominal pain, Constipation, Vomiting - Genitourinary Genitourinary: reports: Other (suprapubic catheter) - Musculoskeletal Musculoskeletal: reports: Limited range of motion, Assistive devices. denies: Joint pain - Integumentary Integumentary: reports: Other (rekha to left stump) - Neurological Neurological: reports: General weakness, Memory problems (patient herself denies forgetfulness) - Psychiatric Psychiatric: reports: Depression - Hematologic/Lymphatic Hematologic/Lymphatic: reports: Recurrent infections (UTI) - All Other Systems All Other Systems: reports: Reviewed and negative Physical Exam - Vital Signs Temperature: 36.3 C Pulse Rate: 92 O2 Saturation: 98 (on RA at rest) Blood Pressure: 110/57 (right wrist cuff) - Physical Exam General Appearance: positive: No acute distress, Alert, Other (sitting up in bed, alert and engaged today) Eyes Bilateral: positive: Normal inspection, Other (no noted discharge; +corrective lenses) ENT: positive: No signs of dehydration Neck: positive: Trachea midline Cardiovascular: positive: Regular rate & rhythm Respiratory: positive: No respiratory distress, Breath sounds nml (ausculated anteriorly) Abdomen: positive: Non-tender, Soft, Nml bowel sounds, Other (+suprapubic catheter draining clear yellow urine to gravity). negative: Guarding Extremities: positive: Other (Right AKA with well healed incision line; Left AKA with dressing intact without saturation--see RN note from today, 11/11/2019 for full details.) Neurologic/Psychiatric: positive: Oriented x3, Flat affect Palliative Care - POLST Patient has POLST: Yes POLST Status: Full Code Pain: No pain Depression: None (controlled with effexor) Sleep: Variable sleep pattern Constipation: No Performance Status: Patient is bedbound. She has a Layne lift in her room and this is what she uses to transfer to her electric wheelchair. She has a transporter van. She has a suprapubic catheter in place which is managed by her caregiver. She is incontinent of stool. She is dependent on her primary caregiver for all her ADLs, meal prep, and her bed mobility. She is able to self feed and manage from her bed her medications and her phone is in reach at the bedside. PPS 30% - Palliative Care Discussion: In the last week, prior to her son's arrival the patient has been contemplating relocating to be closer to both her children who reside in [place]. In the past, the patient has not wished to leave her home and her animals on [facility]. She relays that she had a relationship (most likely her ) That ended she sought to get away from the memories and left [place] and settle down on [facility]. Her has been for approximately 1 year and he had dementia. The patient now acknowledges that she has a desire to return to [place] where she will be closer to her children who can visit her more regularly and assist in her caregiving needs. There are areas close to her daughter that she would be happy relocating to given the scenery and the beauty of the landscape. Both of the patient's children, Nevaeh and Shad are very much in support of this decision and have hopes that the patient does not alter her mind. Ultimately, both of her children wish to honor her wishes regarding her health and wish for her to have a safe care plan in place. If the patient herself notes any vulnerability (such as with her memory) she will deflect with humor to cover up her insecurities. She does not perceive any cognitive deficits, however, her daughter Nevaeh has noted a cognitive decline more recently. Impression and Recommendations - Palliative Care Impression: This is a 74-year-old woman originally from [place] with a history of chronic, progressive multiple scoliosis who has had bilateral foot wounds and PAD that resulted in bilateral AKA. She demonstrates cognitive impairment and after testing today demonstrates mild cognitive impairment. Palliative care will continue to build rapport, assist with anticipatory guidance, symptom management and advance care planning. Recommendations/Counseling Done: 1. Mild Cognitive Impairment. SLUMS testing preformed today and patient was open to evaluation Score 21/30 consistent with mild cognitive impairment due to her underlying multiple scoliosis and vascular history. She has a long standing history of poor adherence to treatment plans and recommendations by providers. She is able to express her wishes and have support in decision making from her children/DPOA. Provide support and would expect a slow, gradual decline reviewed at length with daughter/DPNevaeh YADAV. 2. Allergic conjunctivitis, OU. Improved. complete zaditor opth drops 1 drop BID and use of cool compress.Contact if no improvement or new/worsening symptoms with understanding verbalized. 3. Left AKA revision, right AKA and PAD. left AKA wound site intact. Patient has self discontinued ASA therapy. Continue Plavix as prescribed and strongly encouraged continuation given PAD history. F/u with vascular surgery as recommended after discharge 10/25/2019 for staple removal. nursing to continue to follow. 4. Tobacco use. Strongly encouraged tobacco cessation due to health implications. Patient verbalizes understanding and declines intervention for t obacco cessation. 5. Advanced Care Planning. Patient wishes to have full treatment for her health conditions on her terms and this is clear in her living will per her daughter/EUFEMIA Herring. The patient has been receptive in relocating to be closer to both her children to have assisting in her caregiving needs and companionship in [place]---which she had been resistant to in the past The patient's daughter and son are hesitantly optimistic that the patient will proceed with relocating to be closer to them in [place]. The patient is to continue to have oversight by her caregiver, Butch. Continue to explore goals of care advanced care planning. Time Spent: Total time spent 30 minutes with greater than 50% of this spent in counseling and coordination of care with patient, son Shad and daughterNevaeh via phone; cognitive assessment; physical examination; review of palliative approach to care; review anticipatory guidance. Disclaimer: The chart note was formulated using voice recognition technology and unfortunately sound alike errors may occur.
== END 2019-11-11 14:31 | disposition home or self-care (01) ==
LOC: PC 14:30
PROVIDERS: ATTEND Nurse Practitioner Family
DX: Z51.5 Encounter for palliative care (principal); G31.84 Mild cognitive impairment of uncertain or unknown etiology; G35 Multiple sclerosis; I73.9 Peripheral vascular disease, unspecified; H10.13 Acute atopic conjunctivitis, bilateral; Z79.899 Other long term (current) drug therapy; Z79.02 Long term (current) use of antithrombotics/antiplatelets; Z74.01 Bed confinement status; Z72.0 Tobacco use; Z89.612 Acquired absence of left leg above knee; Z89.611 Acquired absence of right leg above knee; Z93.50 Unspecified cystostomy status
CPT/HCPCS: 99348

== ENCOUNTER 2020-01-29 10:40 | Outpatient (CLI) | payer MEDICARE, OTHER ==
--- NOTE | 2020-01-29 19:55 | CONSULTATION NOTE ---
Palliative Care Follow Up - Referral Referring Provider: Dr. Fady Mcintosh Time of Visit: [id number] Referral setting: Home Referral Reason: MS/PAD/Depression - Information Sources Records reviewed: Previous records reviewed History/Review of Systems obtained from: Patient, Family (daughter, Nevaeh via phone), Caregiver (private caregiver Butch present) Exam limitations: Clinical condition (mild cognitive impairment) - History of Present Illness Update Brief HPI Update: This is a 74-year-old woman with advanced MS, who has mostly been bedbound for the last 4 years with mild cognitive impairment. The patient underwent AKA to her bilateral legs in late 2018 in early 2019. She had a revision performed to her left AKA due to skin breakdown at [facility] in 10/24/2019. Those sites have completely healed and she is no longer followed by home health nursing. She denies any discomfort to that localized area. On last evaluation she was reporting bilateral eye irritation with itching without a change in vision loss. She used Zaditor as prescribed and continues to wear corrective lenses. She is expecting a new pair of eyeglasses that her daughter has ordered for her. She denies any itching at the present time. She has attempted to have her right breast implant removed however this was canceled initially due to COVID-19. She then went to have further evaluation for cardiac clearance to reschedule the procedure and she was told that given her underlying cardiac conditions she would have to go to a higher tertiary center to be evaluated. Her caregiver, nancy downey reports that there have been waiting for the last 2 to 3 weeks to hear from [facility] if the procedure will be performed there. When asking the patient today if she is having any discomfort to her right breast she denies this. Her private caregiver however, reports that if her dogs ever get up onto her chest they are unable to stay long due to the added discomfort. She has just completed a course of antibiotics due to a UTI and has a chronic suprapubic cathateter. Her caregiver, Maile reports that the patient and a change in her urine that was dark and cloudy and prompted evaluation of urine and treatment. The patient herself reports that she is "doing fine." She does not offer any acute complaints except reporting that she is lonely. She states that she is working with her children in order to find a piece of property in [place] to be closer to them. The patient on initial evaluation was sound asleep and required to be awoken. She aroused easily and was initially irritable that she had been woken from sleep. She eventually then was engaged in the conversation and evaluation. Patient has a past medical history that includes depression, left AKA 2018 with revision in 2019, right AKA 2019, PAD, chronic progressive multiple sclerosis, history of small bowel obstruction in 04/2017, right hip replacement, chronic cystitis, neurogenic bladder from multiple scoliosis, insomnia, tobacco use disorder, venous insufficiency, CHF (EF 25 to 30% (, A. fib, PERLA and BSO, moderate protein calorie malnutrition, chronic normocytic anemia. Social History - Living Situation Living arrangement: At home Living Situation: Alone (with private caregiver, Michele who comes daily) Support System: The patient is . She has 2 children, Jose Carlos and Shad who reside in [place]. Her daughter, Jose Carlos [phone] (of the patient's D POA. The patient resides alone and has frequent contact with her primary caregiver, Suzette [phone] is present daily from approximately 730 to 1 PM. The patient has everything that she would require right at her bedside including a telephone. [place] with [place] and her caregiver mentally scenes her care but the animals as well. Medications/Allergies - Medications Home Medications: Ambulatory Orders Medication Instructions Recorded Confirmed Hydrocodone/Acetaminophen 1 tab PO Q4H PRN 04/14/17 08/22/19 [Hydrocodone-Acetamin 5-325 mg] Venlafaxine [Effexor] 150 mg PO BID 03/30/18 11/05/19 Albuterol Sulfate [Proair Hfa 2 puffs PO Q4HR PRN 06/01/18 08/22/19 Inhaler] Metoprolol Succinate 25 mg PO DAILY 06/01/18 08/22/19 Clopidogrel [Plavix] 75 mg PO DAILY 10/03/18 08/22/19 Ipratropium/Albuterol [Duoneb] 3 ml INH QID PRN 10/03/18 08/22/19 Omeprazole 20 mg PO DAILY 10/03/18 08/22/19 Acetaminophen 500 mg PO Q6H PRN 03/24/19 08/22/19 Senna [Senokot] 1 - 2 tab PO PRN PRN 03/24/19 11/05/19 Citric AC/Gluconolact/Mag Carb BID MDD irrigate suprapubic cath 08/22/19 [Renacidin Irrigation Solution] Ondansetron [Ondansetron Odt] 4 mg PO DAILY PRN 08/22/19 11/05/19 Ketotifen Fumarate [Zaditor] 1 drops EACHEYE BID MDD for 7 days 11/05/19 11/05/19 - Allergies Allergies/Adverse Reactions: Allergies Allergy/AdvReac Type Severity Reaction Status Date / Time No Known Drug Allergies Allergy Verified 03/30/18 11:44 Review of Systems - Constitutional Constitutional: denies: Weight loss - Eyes Eyes: reports: Corrective lenses. denies: Irritation - Ears, Nose & Throat Ears, Nose & Throat: reports: Hearing loss - Cardiovascular Cardiovascular: denies: Palpitations, Chest pain - Respiratory Respiratory: denies: Cough, Wheezing - Gastrointestinal Gastrointestinal: reports: Good appetite. denies: Constipation, Diarrhea - Genitourinary Genitourinary: reports: Other (suprapubic catheter) - Musculoskeletal Musculoskeletal: reports: Limited range of motion, Assistive devices - Integumentary Integumentary: denies: Rash - Neurological Neurological: reports: General weakness, Memory problems (mild forgetfulness) - Psychiatric Psychiatric: reports: Depression - Hematologic/Lymphatic Hematologic/Lymphatic: reports: Recurrent infections (recurrent UTI) - All Other Systems All Other Systems: reports: Reviewed and negative Physical Exam - Vital Signs Temperature: 97.9 C Pulse Rate: 86 O2 Saturation: 96 (on RA at rest) Blood Pressure: 102/53 (right wrist cuff) - Physical Exam General Appearance: positive: No acute distress, Other (initially asleep but arousable and initially irritated to be awoken for visit but did engage) Eyes Bilateral: positive: Other (+corrective lenses) ENT: positive: Hearing loss Neck: positive: Trachea midline Cardiovascular: positive: Regular rate & rhythm, No murmur Respiratory: positive: No respiratory distress, Breath sounds nml (ausculated anteriorly) Abdomen: positive: Non-tender, Soft, Nml bowel sounds, Other (+suprapubic catheter draining clear, yellow urine). negative: Guarding Skin: positive: Pallor. negative: Wound Extremities: positive: Other (+b/l AKA with well healed incision lines) Neurologic/Psychiatric: positive: Oriented x3, Flat affect Palliative Care - POLST Patient has POLST: Yes POLST Status: Full Code Pain: No pain Depression: None (controled with effexor) Sleep: Variable sleep pattern Constipation: No Performance Status: Patient is bedbound. She has a Layne lift in her room to transfer to her electric wheelchair. She is a transporter van. She has a suprapubic catheter in place which is managed by her caregiver. She is incontinent of stool. She is dependent on her primary caregiver for all her ADLs, meal prep and her bed mobility. She is able to self feed and manage from her bed her medications and reach her phone. PPS 30% - Palliative Care Discussion: The patient overall the present time is doing quite well per her private caregivers report.She does reflect that she is lonely and when she is lonely she comes up with "crazy ideas." Her latest idea was to have figures attached to the ceiling for her to look at via Velcro. She does state that she is looking into property to relay "closer to her children who reside in [place]. Upon further review with the patient's daughter, Ecotrin the patient goes back and forth about moving. As she is going back and forth about moving her children are hesitant about relocating her and attempting to sell the property in [place] and transitioning her to [place]. There is a house that would be available to her that her resided in but she is related to her daughter that she does not run to reside there as it "is filled with too many memories." Therefore, that home is not an option. The patient herself has noticed some forgetfulness that she is related to her daughter on the phone as well as noted by her caregiver. Impression and Recommendations - Palliative Care Impression: This is a 74-year-old woman originally from [place] with a history of chronic, progressive multiple scoliosis status post bilateral AKA due to wounds and PAD. She continues to have a slow functional and cognitive decline. Palliative care to continue to assist with anticipatory guidance symptom management and advance care planning. Recommendations/Counseling Done: 1.COPD. Patient continues to smoke however reports that she has recently cut back. And encouraged to perform smoking cessation but declines. Continues to use intermittent albuterol as needed for relief. Refill sent at the request of caregiver for albuterol inhaler. 2. Breast implantation. Rest breast implantation causing intermittent discomfort reported by the caregiver and previously by the patient. Her procedure for removal was canceled due to COVID and then subsequently due to her high cardiac risk. Strongly encouraged for the patient's caregiver, will wean to follow-up with [facility] [place] for guarding follow through on the procedure. 3. Chronic, progressive MS. Bedbound. Able to use her Layne lift to sit in her electric wheelchair. Supportive care. Requires caregiving support. 4. Atrial fibrillation. Rate controlled with metoprolol. No cardiac complaints. Not on anticoagulation. 5. Mild cognitive impairment. SL UMS testing performed 11/11/2019 as 21 out of 30 consistent with mild cognitive impairment due to her underlying multiple sclerosis and vascular history.She has poor insight into her chronic conditions and has a longstanding history of poor adherence to treatment plans and recommendations by providers. She is able to express her wishes and have support and decision-making from her children/D POA. Continue to expect a slow gradual decline. 6. Advance care planning. Patient wishes to have full treatment to her health conditions on her terms. The patient continues to wax and wane in regards to relocating closer to her children who reside in [place]. It would be ideal if the patient would be agreeable to relocating to [place] where she can have more interaction with her family and for them to provide additional oversight. The patient continues to have oversight with her caregiving by her caregiver, Marlee. Continue to provide support. Time Spent: Total time spent 50 minutes with greater than 50% of this spent in counseling and coordination of care with patient and caregiver Butch; examination of patient; review of symptom management and anticipatory guidance. updated daughter/DPVICENTA Herring at [phone] regarding POC and evaluation with questions answered and addressed. Disclaimer: The chart note was formulated using voice recognition technology and unfortunately sound alike errors may occur.
== END 2020-01-29 10:41 | disposition home or self-care (01) ==
LOC: PC 10:40
PROVIDERS: ATTEND Nurse Practitioner Family
DX: Z51.5 Encounter for palliative care (principal); G35 Multiple sclerosis; J44.9 Chronic obstructive pulmonary disease, unspecified; F17.200 Nicotine dependence, unspecified, uncomplicated; T85.848D Pain due to other internal prosthetic devices, implants and grafts, subsequent encounter; G31.84 Mild cognitive impairment of uncertain or unknown etiology; I48.91 Unspecified atrial fibrillation; I73.9 Peripheral vascular disease, unspecified; I50.9 Heart failure, unspecified; Z79.899 Other long term (current) drug therapy; Z79.02 Long term (current) use of antithrombotics/antiplatelets; Z74.01 Bed confinement status; Z93.50 Unspecified cystostomy status; Z89.612 Acquired absence of left leg above knee; Z89.611 Acquired absence of right leg above knee; Z87.440 Personal history of urinary (tract) infections
CPT/HCPCS: 99349

== ENCOUNTER 2020-05-16 10:49 | Outpatient (CLI) | payer MEDICARE, OTHER | END 2020-05-16 10:50 | disposition EMS.NT | LOC: EMS 10:49 | PROVIDERS: ATTEND Surgery | DX: R07.9 Chest pain, unspecified (principal) ==

== ENCOUNTER 2020-05-17 05:52 | Outpatient (CLI) | payer MEDICARE, OTHER | END 2020-05-17 05:53 | disposition short-term general hospital (02) | LOC: EMS 05:52 | PROVIDERS: ATTEND Surgery | DX: R07.9 Chest pain, unspecified (principal) | CPT/HCPCS: A0425; A0427 ==

== ENCOUNTER 2020-06-04 14:30 | Outpatient (CLI) | payer MEDICARE, OTHER ==
--- NOTE | 2020-06-04 16:51 | CONSULTATION NOTE ---
Palliative Care Follow Up - Referral Referring Provider: Dr. Fady Mcintosh Referral setting: Home Referral Reason: F/u ER for chest pain/MS - Information Sources Records reviewed: Previous records reviewed History/Review of Systems obtained from: Patient, Caregiver (Butch via phone on 06/03/2020) Exam limitations: Clinical condition (mild cognitive impairment) - History of Present Illness Update Brief HPI Update: This is a 75-year-old woman with advanced MS who is been bedbound for the last 4 years with mild cognitive impairment seen in follow-up today after emergency department visit mid-May at the request of her private caregiver. The patient's private caregiver reached out to palliative care yesterday reporting that the patient is having concerns that she will from a heart attack or stroke. On 05/17/2020 she was seen in the emergency department at [facility] after EMS was called due to her complaints of chest pain at rest. She was having chest pain that was radiating down her left arm. Her cardiac troponins were negative for a myocardial infarction. Her lab work did demonstrate leukocytosis and she was receiving antibiotic therapy for a UTI. She was advised to follow-up with her PCP regarding outpatient cardiac stress testing. The patient herself acknowledges that this provider is here to check in on her but otherwise, the patient herself reports that "my heart is fine, everything is fine." When discussing about obtainment of a cardiac stress test she was not interested in having this performed has she sees it "nothing is wrong with my heart." In regards to her encapsulated right breast implant and potential removal. The patient reflects that her prior procedure was canceled due to coronavirus and she relays "at some point I will reach out to Dr. Mcintosh to get a new referral at [facility]."The patient does not recall thatHer surgery was canceled at [facility] due to her high cardiac Risk anesthesiology recommended that the patient seek a higher level of care than locally for this procedure.Today, the patient does not offer up acute concerns regarding pain to her right breast. Patient was awake and alert on arrival expecting this [employer]. She has new eyeglasses in place that are retro in style. She recently lost one of her dogs and now only has 1 remaining who stays close to her side. 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 fib, PERLA and BSO, moderate protein calorie malnutrition, chronic normocytic anemia. Social History - Living Situation Living arrangement: At home Living Situation: Alone Support System: The patient is . She has 2 children, Nevaeh and Shad Who reside in [place]. Her daughter is her DPOA at contact number [phone].She resides alone and has frequent contact with her caregiver,Butch, who is present daily from 730 to 1pm. The patient has everything that she would require right at her bedside including the telephone. [place] with multiple animals, (donkeys, peacocks ) and her caregiver oversees her care as well as animals. The patient reports that her children are going to be visiting during [place]. Medications/Allergies - Medications Home Medications: Ambulatory Orders Medication Instructions Recorded Confirmed Hydrocodone/Acetaminophen 1 tab PO Q4H PRN 04/14/17 08/22/19 [Hydrocodone-Acetamin 5-325 mg] Venlafaxine [Effexor] 150 mg PO BID 03/30/18 11/05/19 Albuterol Sulfate [Proair Hfa 2 puffs PO Q4HR PRN 06/01/18 08/22/19 Inhaler] Metoprolol Succinate 25 mg PO DAILY 06/01/18 08/22/19 Clopidogrel [Plavix] 75 mg PO DAILY 10/03/18 08/22/19 Ipratropium/Albuterol [Duoneb] 3 ml INH QID PRN 10/03/18 08/22/19 Omeprazole 20 mg PO DAILY 10/03/18 08/22/19 Acetaminophen 500 mg PO Q6H PRN 03/24/19 08/22/19 Senna [Senokot] 1 - 2 tab PO PRN PRN 03/24/19 11/05/19 Citric AC/Gluconolact/Mag Carb BID MDD irrigate suprapubic cath 08/22/19 [Renacidin Irrigation Solution] Ondansetron [Ondansetron Odt] 4 mg PO DAILY PRN 08/22/19 11/05/19 Ketotifen Fumarate [Zaditor] 1 drops EACHEYE BID MDD for 7 days 11/05/19 11/05/19 - Allergies Allergies/Adverse Reactions: Allergies Allergy/AdvReac Type Severity Reaction Status Date / Time No Known Drug Allergies Allergy Verified 03/30/18 11:44 Review of Systems - Constitutional Constitutional: reports: Weight stable (per patient's perception, no documented weight as patient is bedbound). denies: Fever - Eyes Eyes: reports: Corrective lenses - Ears, Nose & Throat Ears, Nose & Throat: reports: Hearing loss. denies: Hearing aids - Cardiovascular Cardiovascular: denies: Chest pain, Edema - Respiratory Respiratory: reports: Other (smokes 6 Cigarettes per day). denies: Cough, Wheezing - Gastrointestinal Gastrointestinal: reports: Good appetite. denies: Constipation, Diarrhea - Genitourinary Genitourinary: reports: Other (suprapubic cathater flushed with renacidin) - Musculoskeletal Musculoskeletal: reports: Limited range of motion, Assistive devices, Transfer issues, Other (bilateral AKA) - Integumentary Integumentary: reports: Other (reports skin to sacrum intact). denies: Rash - Neurological Neurological: reports: General weakness, Memory problems - Psychiatric Psychiatric: reports: Depression - Endocrine Endocrine: denies: Hypothyroidism - Hematologic/Lymphatic Hematologic/Lymph: Anemia, Recurrent infections (UTIs) - All Other Systems All Other Systems: reports: Reviewed and negative Physical Exam - Vital Signs Temperature: 36.4 C Pulse Rate: 91 O2 Saturation: 96 (on RA at rest) Blood Pressure: 133/84 (right wrist cuff) - Physical Exam General Appearance: positive: No acute distress, Alert, Other (sitting up in hospital bed listening to music smoking a Cigarette initially) Eyes Bilateral: positive: Normal inspection, Other (+corrective lenses) ENT: positive: No signs of dehydration Neck: positive: Trachea midline Cardiovascular: positive: Regular rate & rhythm, No murmur Respiratory: positive: No respiratory distress, Breath sounds nml (ausculated anteriorly) Abdomen: positive: Non-tender, Soft, Nml bowel sounds, Other (+suprapubic catheter draining clear, yellow urine) Skin: positive: Pallor. negative: Wound Extremities: positive: Other (+b/l AKA with skin intact) Neurologic/Psychiatric: positive: Oriented x3, Flat affect Palliative Care - POLST Patient has POLST: Yes POLST Status: Full Code Pain: No pain Nausea: None Anorexia: None Dyspnea: None (controlled with effexor) Sleep: Sleeps well Constipation: No Performance Status: PPS 30% - Palliative Care Discussion: The patient perceives thatThat she is doing well and offers up no concerns regarding her recent complaints of chest pain that resulted in an emergency department visit. Upon further discussion with the patient regarding further evaluation such as cardiac stress testing, the patient is not interested in it as she does not perceive anything wrong from a cardiac standpoint. She does relay if there is something concerning that is "fixable" then she would want to move forward with further evaluation and interventions. Results - Lab Results Lab results reviewed: Yes Lab and Imaging Results: 05/17/2020 Sodium 137, potassium 4.5, BUN 19, creatinine 0.26, glucose 113, calcium 8.8, AST 26, ALT 27, alk phos 84, albumin 3.3, WBC 15.1, hemoglobin 9.1, hematocrit 29%, platelets 422 Chest x-ray performed 05/17/2020 impression "hyperinflation suggesting asthma or emphysema. No acute consolidations." Impression and Recommendations - Palliative Care Impression: This is a 75-year-old woman originally from [place] with a history of chronic, progressive multiple sclerosis status post bilateral AKA due to wounds and PAD. She continues to have a slow functional and decline.She has mild cognitive impairment that Appears to be stable. No evidence of acute coronary syndrome when evaluated in the emergency department on 05/17/2020 the patient's at the present time does not want to proceed with further work-up and has no further complaints of chest pain. Palliative care to continue to provide care coordination, symptom management and advance care planning. Recommendations/Counseling Done: 1. Atypical chest pain. Patient seen and evaluated in the emergency department at [facility] with negative troponins. Patient at the present time does not perceive any further cardiac complaints and is not interested in pursuing a cardiac stress test at this time. Patient has several cardiac diagnoses and given her continued tobacco abuse is at risk for sequential sequelae from a cardiac standpoint. 2. Atrial fibrillation. Rate controlled on metoprolol. No cardiac complaints. Not on anticoagulation. Followed by cardiology in the past. 3.Mild cognitive impairments. UMS testing performed 11/11/2019 as 21 out of 30 consistent with mild cognitive impairment due to her underlying multiple sclerosis and vascular history. She is a longstanding history of poor adherence to treatment plans and recommendations by multiple providers. She continues to express her wishes regarding medical management and exercise her control over situations. Would continue to expect a slow, gradual decline. 4. Chronic, progressive MS. Bedbound. Able to use a Layne lift to sit in her electric wheelchair. Supportive care. Requires caregiving support. Time Spent: CPT 88111 Plan of care reviewed with the patient with questions answered and addressed. Patient aware to contact palliative care for any change in condition and if needed symptom management. Disclaimer: The chart note was formulated using voice recognition technology and unfortunately sound alike errors may occur.
== END 2020-06-04 14:31 | disposition home or self-care (01) ==
LOC: PC 14:30
PROVIDERS: ATTEND Nurse Practitioner Family
DX: Z51.5 Encounter for palliative care (principal); I48.91 Unspecified atrial fibrillation; G31.84 Mild cognitive impairment of uncertain or unknown etiology; G35 Multiple sclerosis; Z89.612 Acquired absence of left leg above knee; Z89.611 Acquired absence of right leg above knee; F17.200 Nicotine dependence, unspecified, uncomplicated
CPT/HCPCS: 99348

== ENCOUNTER 2020-08-03 13:15 | Outpatient (CLI) | payer MEDICARE, OTHER ==
--- NOTE | 2020-08-03 14:47 | CONSULTATION NOTE ---
Palliative Care Follow Up - Referral Referring Provider: Dr. Fady Mcintosh Time of Visit: 8830-3958 Referral setting: Home Referral Reason: Neurogenic Bladder/MS/Cognitive Impairment - Information Sources Records reviewed: Previous records reviewed History/Review of Systems obtained from: Patient, Caregiver (Butch) Exam limitations: Clinical condition (Mild cognitive impairment) - History of Present Illness Update Brief HPI Update: This is a 75-year-old woman with advanced MS who is bedbound for the last 5 years with mild cognitive impairment seen in follow-up at the request of her daughter/DPNevaeh YADAV due to recent behavioral changes, advance care planning and neurogenic bladder with her private caregiver, Butch. Last the patient's private caregiver reports that she was refusing her medications for several days which mainly included her Effexor and when this happens the patient "gets nasty." And she contacted the law enforcement who came to the home and assess the situation. The patient was refusing care from her private caregiver to provide incontinence care. Her private caregiver has been coming multiple times during the day to provide incontinence care which is increased since the patient pulled out her suprapubic catheter on 07/03/2020. The patient herself reports that she pulled the catheter out as she was "sick and tired of it." Her private caregiver reports that she is having saturated depends with no evidence of retention. The patient herself denies flank pain or suprapubic pressure. She completed a course of Macrobid earlier this month for urinary tract infection. Introduced today with the patient the purpose and reason she had a suprapubic catheter in place due to neurogenic bladder from MS and if she would allow this BARREL TESTER to replace the suprapubic catheter today but this was adamantly denied. The patient was not thrilled to have this BARREL TESTER evaluate her today as she reports is "everything is fine." The patient has resumed taking her Effexor. Her private caregiver reports that it is hit or miss if she takes her Plavix or metoprolol. Her blood pressure taken by her caregiver ranges 113-153/52-75. Overall, the patient is doing well. Her caregiver reports that she is "eating well and sleeping well." The patient herself denies any acute pain. Listening clues her encapsulated right breast implant. She continues to smoke cigarettes during the day but both she and her private caregiver report that she has cut back. The patient was initially sleeping upon arrival, easily arousable. She is sitting up in bed with retrostyle eyeglasses. No evidence of acute distress. She has 1 dog who adamantly was jumping up on the bed for attention. 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 fib, PERLA and BSO, moderate protein calorie malnutrition nutrition, chronic normocytic anemia. Social History - Living Situation Living arrangement: At home Living Situation: Alone Support System: The patient is . She grew up in [facility]. She relocated to the [facility] [place]. She has 2 children, Nevaeh and Shad who reside in [place]. Her daughter is her DPOA at contact number [phone]. She resides alone and has frequent contact with her private caregiver, Claire. She is eating everything easily accessible to her at her bedside including the telephone. She lives on a farm with multiple animals and her caregiver also ov ersees the care of animals as well. The patient's children visit monthly on an alternating schedule. The patient's daughter has expressed concerns as her present private caregiver has been with her for approximately 3 years and the family does not know what they would do without the support of this private caregiver. APS was contacted last week when the patient was refusing care from her private caregiver and daughter is aware and contributed to this APS report. The patient continues to express her desire to relocate to [place] in the [place] area with all her animals to be closer to her children but has not made steps for making this a formative plan. Medications/Allergies - Medications Home Medications: Ambulatory Orders Medication Instructions Recorded Confirmed Hydrocodone/Acetaminophen 1 tab PO Q4H PRN 04/14/17 08/22/19 [Hydrocodone-Acetamin 5-325 mg] Venlafaxine [Effexor] 150 mg PO BID 03/30/18 11/05/19 Albuterol Sulfate [Proair Hfa 2 puffs PO Q4HR PRN 06/01/18 08/22/19 Inhaler] Metoprolol Succinate 25 mg PO DAILY 06/01/18 08/22/19 Clopidogrel [Plavix] 75 mg PO DAILY 10/03/18 08/22/19 Ipratropium/Albuterol [Duoneb] 3 ml INH QID PRN 10/03/18 08/22/19 Acetaminophen 500 mg PO Q6H PRN 03/24/19 08/22/19 Senna [Senokot] 1 - 2 tab PO PRN PRN 03/24/19 11/05/19 Citric AC/Gluconolact/Mag Carb BID MDD irrigate suprapubic cath 08/22/19 [Renacidin Irrigation Solution] Ondansetron [Ondansetron Odt] 4 mg PO DAILY PRN 08/22/19 11/05/19 - Allergies Allergies/Adverse Reactions: Allergies Allergy/AdvReac Type Severity Reaction Status Date / Time No Known Drug Allergies Allergy Verified 08/03/20 14:58 Review of Systems - Constitutional Constitutional: reports: Weight stable (per patient's perception, no documented weight as patient is bedbound). denies: Fever - Eyes Eyes: reports: Corrective lenses - Ears, Nose & Throat Ears, Nose & Throat: reports: Hearing loss. denies: Hearing aids - Cardiovascular Cardiovascular: denies: Chest pain, Edema - Respiratory Respiratory: reports: Other (smokes cigarettes but has reduced quantity). denies: Cough, Wheezing - Gastrointestinal Gastrointestinal: reports: Good appetite. denies: Constipation (bowel movement 1-3 times daily, not loose but formed), Vomiting - Genitourinary Genitourinary: reports: Incontinence (removed suprapubic catheter on 07/03/2020 after placement for appx 5 years) - Musculoskeletal Musculoskeletal: reports: Limited range of motion, Assistive devices, Transfer issues, Other (bilateral AKA) - Integumentary Integumentary: reports: Other (no skin breakdown reported by private caregiver) - Neurological Neurological: reports: General weakness, Memory problems (private caregiver reports some further decline in memory as does daughter through phone conversations) - Psychiatric Psychiatric: reports: Depression - Hematologic/Lymphatic Hematologic/Lymph: Anemia, Recurrent infections (UTIs, last UTI 07/2020 treated with macrobid) - All Other Systems All Other Systems: reports: Reviewed and negative Physical Exam - Vital Signs Temperature: 36.7 C Pulse Rate: 94 O2 Saturation: 96 (on RA at rest) Blood Pressure: 138/64 (right wrist cuff) - Physical Exam General Appearance: positive: No acute distress, Alert, Other (sitting up in hospital) Eyes Bilateral: positive: Other (+corrective lenses) ENT: positive: No signs of dehydration Neck: positive: Trachea midline Cardiovascular: positive: Regular rate & rhythm, No murmur, Other (right breast implant prominent and nontender to palpation; left breast implant not palpable) Respiratory: positive: No respiratory distress, Breath sounds nml (ausculated anteriorly). negative: Wheezes Abdomen: positive: Non-tender, Soft, Nml bowel sounds, Other (Stoma to right lower abdomen where suprapubic catheter was in place prior to patient's removal of the catheter 1 month ago--appears clean without discharge. Bladder nondistended and nontender to palpation.) Skin: positive: Pallor Extremities: positive: Other (+b/l AKA with skin intact) Neurologic/Psychiatric: positive: Oriented x3, Flat affect (will deflect questions at times) Palliative Care - POLST Patient has POLST: Yes POLST Status: Full Code Pain: No pain Depression: Mild (1-3) (controlled with effexor) Performance Status: Patient is bedbound. She is dependent upon her private caregiver to assist with ADLs. Prior to her removing her suprapubic catheter this was also managed by her private caregiver. She is incontinent of stool. She is able to self feed and manage from her bed her medications and her phone is in reach by the bedside. PPS 30% - Palliative Care Discussion: The patient continues to be fixated on her approach for management of her overall health within her home environment. In the past, there have been multiple private caregivers that have come and gone before [employer] Was hired 3 years ago and they have formulated a team. The patient picks and chooses what she will follow through on regarding her medication management despite reeducation. Earlier last year after her AKA when she was in a skilled rehab facility she left AMA and was refusing care. When she takes her antidepressant medication she, per her caregivers report, is more accepting of assistance. However, despite review today with the patient the importance of taking her Plavix and metoprolol due to her underlying atrial fibrillation and PAD she replied "I will do it." The patient's daughter/DPOA, Ecotrin is operating management from a distance in [place]. The patient continues to bring up that she will relocate to [place] to be closer to her son and daughter but this would only occur when the patient's terms which would include taking her livestock that she has on her property with her and she has not followed through on further evaluation outside of discussion. Approximately a month ago she removed her suprapubic catheter as she was "tired of it." Presently there is no evidence of distention and she is quite adamant that she does not want it to be replaced and we will continue to monitor at this time. Impression and Recommendations - Palliative Care Impression: This is a 75-year-old woman originally from [place] with a history of chronic, progressive multiple sclerosis status post bilateral AKA due to wounds and PAD. She continues to have a slow functional decline. She has mild cognitive impairment and with performing SL UMS today is stable from what was performed November/2019. The patient continues to elect What she will not and will do regarding her health care management which presently includes removal of her suprapubic catheter and intermittently taking her Plavix and metoprolol. P alliative care to continue to provide care coordination, symptom management and advance care planning. Recommendations/Counseling Done: 1. Neurogenic bladder due to multiple sclerosis. Patient has had a suprapubic pack that are in place for approximately 5 years. She recently removed her catheter approximately 1 month ago. Reviewed purpose of suprapubic catheter due to neurogenic bladder at length with the patient and private caregiver and patient elects not to have a catheter reinserted to her stoma. She does not have any evidence of distention and the stoma and skin surrounding it does not have evidence of breakdown. Private caregiver to continue to provide incontinence care. We will continue to monitor and readdress. 2. Mild cognitive impairment. SL UMS performed today scoring 20 out of 30 indicative of mild cognitive impairment most likely due to her underlying multiple sclerosis as well as vascular history. Previously SL UMS performed 11/11/2019 was scored as 21 out of 30. Her cognitive decline appears to be stable given SLUMS scoring. She continues to have poor adherence to treatment plans and recommendations regarding her health care management. Her daughter/DPNevaeh YADAV continues to assist with oversight and management out of state. 3.Atrial fibrillation. Patient is intermittently taking her metoprolol. Encourage consistency taking her metoprolol for rate control. Denies cardiac complaints. Followed by cardiology in the past. 4.Depression. Stable. Continue venlafaxine 150 mg twice daily. The patient's primary contact remains her caregiver, Butch. Continues to be isolated in her home environment and her bedbound state. Continues enjoyment with her dog in the home. Supportive listening provided. 5.Chronic, progressive MS. Bedbound. Able to use a Layne lift to sit in her electric wheelchair. Supportive care. Expect a continued decline. Requires caregiving assistance for ADLs. 6. Advanced care planning. Patient continues to not be adherent to medical treatment and would benefit from assistance in the future for any complex, medical decision making. The patient's daughter has previously expressed co ncerns regarding management of the patient's care within her home setting as she cognitively declines further in that environment And when she will need further oversight. The patient has been quite clear that she wishes to remain in her own home and has openly discussed relocating closer to her children in [place] however, this is just been conversation and no further actions have been taken by the patient to formulate this plan. We will continue to provide support for the patient and her family and assistance for advanced care planning. Time Spent: Total time spent 40 minutes with greater than 50% of this spent in counseling and coordination of care with patient and private caregiver Butch, review of pain and symptom management and anticipatory guidance. Message left for daughter/Nevaeh FALL at [phone] to review POC and if any additional questions may contact for follow-up. Disclaimer: The chart note was formulated using voice recognition technology and unfortunately sound alike errors may occur.
== END 2020-08-03 13:16 | disposition home or self-care (01) ==
LOC: PC 13:15
PROVIDERS: ATTEND Nurse Practitioner Family
DX: Z51.5 Encounter for palliative care (principal); N31.9 Neuromuscular dysfunction of bladder, unspecified; N39.498 Other specified urinary incontinence; G31.84 Mild cognitive impairment of uncertain or unknown etiology; I48.91 Unspecified atrial fibrillation; F32.9 Major depressive disorder, single episode, unspecified; G35 Multiple sclerosis; F17.200 Nicotine dependence, unspecified, uncomplicated; Z89.612 Acquired absence of left leg above knee; Z89.611 Acquired absence of right leg above knee; Z91.14 Patient's other noncompliance with medication regimen; Z74.01 Bed confinement status
CPT/HCPCS: 99349

== ENCOUNTER 2020-12-30 10:15 | Outpatient (CLI) | payer MEDICARE, OTHER ==
--- NOTE | 2020-12-30 14:12 | CONSULTATION NOTE ---
Palliative Care Follow Up - Referral Referring Provider: Dr. Fady Mcintosh Time of Visit: [id number] Referral setting: Home Referral Reason: Nausea and Vomiting with FTT/MS/Cognitive Impairment - Information Sources Records reviewed: Previous records reviewed History/Review of Systems obtained from: Patient, Family (daughter/EUFEMIA, Nevaeh via phone), Caregiver (Keke) Exam limitations: Clinical condition (Mild cognitive impairment) - History of Present Illness Update Brief HPI Update: This is a 75-year-old woman with advanced MS who has been bedbound for the last 5 years with mild cognitive impairment seen in evaluation today at the request of her private caregiver given her inability to sustain nutrients due to nausea and vomiting. The patient's caregiver reports that the patient for the last 10 to 11 days has been taking 1-2 bites of food then will have episodes of emesis. She is able to keep liquids down intermittently. The patient herself denies any early satiety or nausea but after consuming some food she will have an episode of emesis. She denies any abdominal pain. She is having daily bowel movements. The patient has declined going to the emergency department previously and the patient's private caregiver reports that she had contacted the patient's PCP and left a message. The patient's private caregiver reports that she did have an episode of vomiting approximately 2 months ago. The patient's daughter Nevaeh reports that a few years ago she did have a bowel obstruction and presented similarly. The patient had pulled out her suprapubic catheter on 07/03/2020 and has been voiding through her urethra since that time. No noted hematuria, flank pain or suprapubic discomfort reported. There has been no drainage noted from the stoma where the suprapubic catheter had been in place. Both the patient and the caregiver reports that the patient has stopped taking her medications since August 2020. The patient herself denies any acute pain. She has decreased in the last approximately 2 weeks with her cigarette use due to "not feeling up to it." The patient has had extensive surgery and went an SOO to her bilateral legs in late 2018 and in early 2019. She then had a revision performed to her left AKA due to skin breakdown at [facility] in [place] on 10/24/2019. Both of the sites have resolved and healed and there continues to be no skin breakdown to the sites. The patient's caregiver notes that until labs approximately week the patient has been more open in discussing end-of-life and talking about and dying. The patient has expressed to her caregiver that she "knows I am dying" and is worried about care of her dog. The patient herself is seen alert, sitting up in her hospital bed with her glasses in place with no evidence of acute distress. However, she appears pale and has a slight upper extremity tremor that has not been noted on prior evaluations as well as noted visible weight loss from last evaluation with muscular muscle atrophy. 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 fib, PERLA and BSO, moderate protein calorie malnutrition nutrition, chronic normocytic anemia. Social History - Living Situation Living arrangement: At home Living Situation: Alone Support System: The patient is . She grew up in [place] [facility]. She relocated to the [facility] in [place]. She has 2 children, Nevaeh and Shad who reside in [place]. Her daughter is her DPOA at contact number [phone]. She resides alone and has frequent contact with her private caregiver, Desmond. She has everything easily accessible to her at her bedside including the telephone. [place] and her caregiver also oversees the care of animals as well. The patient's daughter, Jose Carlos recently had surgery and has follow-up on Monday and to be unable to fly to [facility] on until Monday of next week. The patient's son has an estranged relationship with the patient. Patient wishes to be buried upon her and buried next to her estranged at [facility] when asked at the request of the daughter today. Medications/Allergies - Medications Home Medications: Ambulatory Orders Medication Instructions Recorded Confirmed Hydrocodone/Acetaminophen 1 tab PO Q4H PRN 04/14/17 08/22/19 [Hydrocodone-Acetamin 5-325 mg] Albuterol Sulfate [Proair Hfa 2 puffs PO Q4HR PRN 06/01/18 08/22/19 Inhaler] Ipratropium/Albuterol [Duoneb] 3 ml INH QID PRN 10/03/18 08/22/19 Acetaminophen 500 mg PO Q6H PRN 03/24/19 08/22/19 Senna [Senokot] 1 - 2 tab PO PRN PRN 03/24/19 11/05/19 Ondansetron [Ondansetron Odt] 4 mg PO Q6H PRN 08/22/19 11/05/19 - Allergies Allergies/Adverse Reactions: Allergies Allergy/AdvReac Type Severity Reaction Status Date / Time No Known Drug Allergies Allergy Verified 12/30/20 14:25 Review of Systems - Constitutional Constitutional: reports: Fatigue, Poor appetite, Weight loss (unable to weigh due to bedbound status; Left MAC 19cm today). denies: Fever (caregiver reports temperature of 100F yesterday) - Eyes Eyes: reports: Corrective lenses - Ears, Nose & Throat Ears, Nose & Throat: reports: Hearing loss (cannot hear her daughter on the telephone). denies: Hearing aids, Nasal congestion - Cardiovascular Cardiovascular: denies: Chest pain, Edema - Respiratory Respiratory: reports: Other (smokes cigarettes but reduced in the last 2 weeks due to her not feeling well). denies: Cough, Wheezing - Gastrointestinal Gastrointestinal: reports: Vomiting, Poor appetite (see HPI). denies: Constipation, Diarrhea, Nausea, Johan blood emesis, Coffee grounds emesis - Genitourinary Genitourinary: reports: Incontinence (removed suprapubic catheter on 07/03/2020 after placement for appx 5 years). denies: Hematuria, Flank pain - Musculoskeletal Musculoskeletal: reports: Limited range of motion, Assistive devices, Transfer issues, Other (bilateral AKA) - Integumentary Integumentary: denies: Other (no skin breakdown) - Neurological Neurological: reports: General weakness, Memory problems (memory loss) - Psychiatric Psychiatric: reports: Depression (stopped her effexor in Aug 2020) - Hematologic/Lymphatic Hematologic/Lymph: reports: Anemia, Recurrent infections (UTIs) - All Other Systems All Other Systems: reports: Reviewed and negative (Supplemented by caregiver Kandice) Physical Exam - Vital Signs Temperature: 35.5 C Pulse Rate: 106 O2 Saturation: 94 (on RA) Blood Pressure: 90/60 (left arm) - Physical Exam General Appearance: positive: No acute distress, Alert, Cachetic, Other (sitting up in hospital bed) Eyes Bilateral: positive: PERRL, Other (+corrective lenses) ENT: positive: Other (lips slightly dry) Neck: positive: Trachea midline Cardiovascular: positive: Tachycardia Respiratory: positive: No respiratory distress, Breath sounds nml. negative: W heezes, Rales Abdomen: positive: Non-tender, Soft, Nml bowel sounds, Other ( Bladder nondistended and nontender to palpation. Appx 2cm involution to skin at right suprabic region where patient had suprapubic catheter that she removed several months ago without erythema or discharge. Episode of emesis appx 5 minutes after drinking liquids) Skin: positive: Pallor Extremities: positive: Other (+b/l AKA with skin intact) Neurologic/Psychiatric: positive: Oriented x3 (STM impairment noted with forget fulness), Weakness Palliative Care - POLST Patient has POLST: Yes POLST Status: DNR, Comfort Measures Pain: No pain Anorexia: Moderate (4-6) Dyspnea: None Constipation: No Performance Status: Patient is bedbound. She is dependent upon her private caregiver to assist with all ADLs. She no longer has a suprapubic catheter and is incontinent of bowel and bladder. She is able to self feed but in the last approximate 10 to 11 days has had frequent episodes of emesis and has not been able to maintain caloric intake. She has discontinued all her medications. No falls. Visible weight loss. PPS 20% - Palliative Care Discussion: The patient presents today with acute changes in her overall caloric and intake with persistent emesis with physical intermittent tremors that may be due to electrolyte deficiencies. The patient previously had presented with fearfulness regarding not having interventions performed medically despite her going AGAINST MEDICAL ADVICE and leaving skilled rehabilitation facilities after her bilateral [id number] amputationsWith a fear of . Recently, she has been more open with her caregiver discussing and dying and today reports that she is "76 years old and I know I am dying." Patient does present with some evidence of cognitive impairments and is able to make her desires and needs known with support from her daughter/DPOA for complex medical decisions. When ruling out today the concerns regarding the patient's inability to maintain oral nutrition and adequate hydration indicative of tachycardia and hypotension with her vital signs the patient was given the option to go to the emergency department for evaluation and treatment versus staying at home and being made comfortable and she elects to remain at home. The patient herself reports that she does not have a desire to go to the hospital and is quite adamant that she wishes to remain at home. She is aware that if she stays at home then likely will occur in the near future given her lack of oral intake. The patient also updated her POLST with her caregiver present and supported by the patient's daughter/DPOA on the phone as DN AR with comfort focused treatment. The patient is aware that electing to stay at home and focusing on comfort it is in her best interest to transition to hospice services and she is amenable to this. The patient's daughter/DPOA, Tahir wishes to support the patient's decision and move forward with admission to hospice. Jose Robertorusty is balancing some of her emotions related to her father's where he had previously wanted to at home but ultimately had a in the hospital in the patient's daughter does not wish for the patient to have a similar experience. The patient's daughter is also conflicted as she is unable to fly at the present time due to a recent procedure. Given the patient lives alone and her prognosis is best we know is weeks given her lack of oral intake she needs additional caregiving support especially overnight and in the future when transitioning to more acute end of life for management of symptoms within the home. Patient's daughter is to work with present private caregiver for recommendations for senior economist and this [facility] will send [place] Home would be home distillery worker general also need to work with the patient's daughter to set up additional caregiving needs within the home environment. Impression and Recommendations - Palliative Care Impression: This is a 75-year-old woman originally from [place] with a history of chronic, progressive multiple sclerosis status post bilateral [id number] amputation due to wounds and PAD who now presents with failure to thrive, protein calorie malnutrition, persistent emesis and continued mild cognitive impairment. In the setting of persistent emesis and protein calorie malnutrition the patient declines an emergency department evaluation and elects to focus on comfort with a comfortable and respectful at home transitioning to hospice services and she has the support of her daughter/DPOA as well as her private caregiver. Palliative care to transition to [facility] hospice services. Recommendations/Counseling Done: 1. Persistent emesis. This is been acute for the last 10 to 11 days with the development of further muscular atrophy, weight loss, and protein calorie malnutrition. Patient has a history of small bowel obstruction in 2017. Positive bowel sounds and no evidence of an infection such of pneumonia, COPD exacerbation or urinary tract infection. Patient declined emergency department evaluation and instead elects to focus on comfort and remaining within her home in environment and transition to hospice services. Prescription provided for Zofran 4 mg to ODT to be administered every 6 hours as needed for nausea/vomiting. 2.Protein calorie malnutrition. In the setting of chronic, progressive MS as well as persistent vomiting and unable to maintain caloric intake. Left MAC 19 cm today. Visible weight loss noted from last evaluation and muscular atrophy. Given the patient wishes to focus on comfort and her acute symptoms to transition to hospice services and daughter/DPOA in agreement. 3. Neurogenic bladder due to multiple sclerosis. Patient has suprapubic catheter in place for approximately 5 years before she moved the catheter in July 2020. The patient is now voiding through her urethra and there are right suprapubic stoma does not have any evidence of infection and appears to have closed. Bladder is not nondistended. Private caregiver to continue to provide incontinence care. 4. Atrial fibrillation. Patient is no longer taking her Plavix or metoprolol. She does not wish to resume her oral medications. Denies cardiac complaints. 5. Chronic, progressive MS. Bedbound. Supportive care. Now in the setting with decreased caloric intake and expect a more progressive decline. Requires caregiving assistance for ADLs. 6.Mild cognitive impairment. Last SL UMS performed August 2020 is 20 out of 30 indicative of mild cognitive impairment due to her underlying multiple sclerosis as well as vascular history. The patient has demonstrated poor adherence to treatment plans in the past and has elected to sign out AGAINST MEDICAL ADVICE when she was status post [id number] amputation. She is able to make her wishes known regarding her medical management but benefits from support from her daughter/DPOA regarding the complex decisions. 7. Advanced care planning. Patient has been nonadherent to medical treatment in the past and given her cognitive impairment benefits from assistance for making complex, medical decision making however she is able to express her concerns and desires. The patient is very clear today that she does not wish to transfer to the emergency department and hospital for further evaluation and elects to focus on comfort within her home and to have a comfortable and respectful . The patient's daughter/DPOA respect the patient's wishes and supports the transition to hospice services. Patient's daughter to work on obtainment of additional caregiving support was specifically overnight and for preparation as the patient is likely to continue to decline for assistance with managing caregiving needs in the future. Total time spent 75 minutes with greater than 50% of this spent in counseling and coordination of care with patient, daughter/DPOA Nevaeh via phone and caregiver Get; escalation vs de-escalation of care; hospice philosophy; updating POLST; examination of patient; review of symptom management and anticipatory guidance. Contacted patient's PCP, Dr. Mcintosh at [phone] to update patient's decision to transition to hospice services with message left. Disclaimer: The chart note was formulated using voice recognition technology and unfortunately sound alike errors may occur.
== END 2020-12-30 10:16 | disposition home or self-care (01) ==
LOC: PC 10:15
PROVIDERS: ATTEND Nurse Practitioner Family
DX: Z51.5 Encounter for palliative care (principal); G35 Multiple sclerosis; G31.84 Mild cognitive impairment of uncertain or unknown etiology; R11.10 Vomiting, unspecified; R25.1 Tremor, unspecified; E46 Unspecified protein-calorie malnutrition; R00.0 Tachycardia, unspecified; N31.9 Neuromuscular dysfunction of bladder, unspecified; R32 Unspecified urinary incontinence; R15.9 Full incontinence of feces; I48.91 Unspecified atrial fibrillation; Z74.01 Bed confinement status; Z66 Do not resuscitate
CPT/HCPCS: 99350